=== PATIENT | male | born 1950 | race Caucasian/White ===

== ENCOUNTER 2019-02-02 11:46 | Inpatient (IN) | payer MEDICARE ==
[~2019-02-02 11:46] MED LIST: ISOVUE-370 76%-LOCM 1 ML ONE
[2019-02-02 12:38] LABS: #Eosinphils 0.4 thou/uL (0.0-0.7); #Lymphocytes 2.5 thou/uL (1.20-3.40); #Monocytes 1.4 thou/uL (0.11-0.59); #Neutrophils 8.3 thou/uL (1.40-6.50); %Basophils 0.3 % (0.0-1.0); %Lymphocytes 19.7 % (21.0-51.0); %Monocytes 11.2 % (0.0-10.0); %Neutrophils 65.8 % (42.0-75.0); Hemoglobin 17.8 g/dL (14.0-18.0); Mean Corpuscular HGB CONC 35.4 g/dL (32.0-36.0); Mean Corpuscular Hemoglobin 35.4 pg (27.0-31.0); Mean Platelet Volume 6.4 fL (7.4-10.4); Platelet Count 328 thou/uL (130-400); RBC Distribution Width 11.7 % (11.5-14.5); Red Blood Cell (RBC) Count 5.03 mill/uL (4.70-6.10); White Blood Cell (WBC) Count 12.6 thou/uL (4.8-10.8)
--- NOTE | 2019-02-02 12:44 | RAD ---
Chest one view HISTORY: Dyspnea. COMPARISON: 12/07/2008. FINDINGS: Cardiac silhouette is magnified by projection. Pulmonary vasculature is upper limits of nor mal. Lungs remain hyperinflated, left greater than right, with mild linear atelectasis at the lung bases. No evidence of pneumothorax or lobar consolidation. desk monitor leads overlie the chest. IMPRESSION: Chronic pulmonary hyperinflation. No active cardiopulmonary abnormalities are demonstrate d.
[2019-02-02 13:01] LABS: ALT (SGPT) 26 U/L (8-55); AST (SGOT) 26 U/L (5-34); Albumin 4.4 g/dL (3.4-4.8); Alkaline Phosphatase 67 U/L (40-150); Anion Gap 17 mmol/L (10-20); BUN (Urea Nitrogen) 31 mg/dL (8.4-25.7); Bilirubin, Total 0.7 mg/dL (0.2-1.2); Calc. Creatinine Clearance 0 mL/min (70-130); Calcium 10.1 mg/dL (7.8-10.44); Carbon Dioxide 28 mmol/L (23-31); Chloride 101 mmol/L (98-107); Estimated GFR-MDRD 69; Globulin 2.7 g/dL (2.4-3.5); Glucose 107 mg/dL (80-115); Potassium 4.1 mmol/L (3.5-5.1); Protein, Total 7.1 g/dL (5.8-8.1); Sodium 142 mmol/L (136-145)
[2019-02-02] MEDS ORDERED: Mag-Al 1200 mg/1200 mg/30 ML UDCUP ONE (13:36)
[2019-02-02] MEDS ORDERED: Lidocaine Viscous Sol 2% 15 ml UD Cup ONE (13:36)
--- NOTE | 2019-02-02 14:27 | CT ---
CT PULMONARY ANGIOGRAM WITH IV CONTRAST AND 3D MIP RECONSTRUCTIONS: DATE: 02/02/2019. PROVIDED CLINICAL HISTORY: Shortness of breath. FINDINGS: Vascular calcification including coronary calcium was demonstrated. The davis, pericardium, and great vessels demonstrate an otherwise unremarkable CT appearance. There is no evidence for central or se gmental pulmonary embolus. There is partial opacification of the distal bronchus intermedius and basilar segments of the right l ower lobe and both proximal right middle lobe segmental bronchi. There is no parenchymal opacity pre sent distal to these areas of opacification. There is associated bronchial wall thickening. There is a solitary peripheral subpleural focus of consolidation involving the superior segment of th e left lower lobe. There is no pleural fluid or pneumothorax apparent. The visualized portions of the upper abdomen demonstrate no acute abnormality. Partially visualized left adrenal mass appears stable with respect to 11/21/2005 and presumably reflects adenoma. There is no evidence for thoracic lymph node enlargement. The osseous structures demonstrate no concerning l ytic or blastic lesions. IMPRESSION: 1. No evidence for central or segmental pulmonary embolus. 2. Opacification of the bronchus intermedius and segmental bronchi of the proximal right middle lobe and basilar right lower lobe. Findings may reflect aspiration. Other etiologies are not excluded. 3. Subpleural consolidation involving the superior segment of the left lower lobe which may reflect pneumonia. Other etiologies are not excluded. Followup is recommended. 4. Vascular calcification including coronary calcium. POS: [facility]
[2019-02-02] MEDS ORDERED: cefTRIAXone\\ROCEPHIN 2 GM VIAL ONE (15:16)
[2019-02-02] MEDS ORDERED: Azithromycin 500 MG VIAL ONE (15:54)
[2019-02-02] MEDS ORDERED: Acetaminophen 325 MG TAB PO PRN (18:27)
[2019-02-02] MEDS ORDERED: Prevnar 13-Val Conj/PF 0.5 ML SYRINGE IM ONE (18:30)
[2019-02-02] MEDS: Pantoprazole 40 MG VIAL IVP SCH (20:27)
[2019-02-02] MEDS: Piperacillin/Tazobactam 3.375 GM in Sodium Chloride 0.9% 100 ML IVPB SCH (20:29)
[2019-02-02] MEDS ORDERED: Fleet Enema 133 ML BOT PR SCH (21:30)
[2019-02-02] MEDS ORDERED: Lidocaine 2% Viscous Solution 10 ML, Aluminum & Magnesium Hydroxide 30 ML SSW SCH (23:30)
[2019-02-02] MEDS ORDERED: Ondansetron PF 4 MG/2 ML Vial IVP PRN (23:55)
--- NOTE | 2019-02-03 01:46 | HP ---
CHIEF COMPLAINT: Multiple. HISTORY OF PRESENT ILLNESS: The patient is a 68-year-old male, who ultimately presented to the emergency department with shortness of breath, cough, difficulty swallowing. The patient reports that for months, he has had dyspnea on exertion. It has progressed to the point that he can even get dressed without becoming very short of breath. He has a cough that is productive of various types of sputum. States when he is coughing a lot, it is typically brown. The patient also reports pain with swallowing and difficulty swallowing. Says when he tries to take a bite, he feels like it would not go down, he ends up coughing half of it back out. He has had pain with swallowing coffee or tea or soft drinks, alcohol, has become very difficult for him to swallow even drinks that are cold or hot. He typically is only trying to stick with lukewarm liquids, but even water hurts him a little bit and states that his throat has been painful for 2 months. Then he thought it was just initially a typical sore throat, but it just not improved. He also has some alterations of his voice, where it becomes hoarse and scratchy over that same period of time. Occasionally, he can cough up a little bit of phlegm and his voice will improve a bit briefly and then returns to where it is most of the time. The patient does admit to having severe reflux symptoms all the time with burning up into his chest. He reports black stools, although he has not had a bowel movement for the last 3 days to speak of. Does not believe it is tarry or sticky in texture. He did use some prune juice about 3 days ago and that worked reasonably well for him. REVIEW OF SYSTEMS: The patient does have some cramping in his legs at night. He is voiding adequately. He has had no unintentional weight loss. All other systems reviewed and all pertinent positives and negatives noted in the history of present illness. PAST MEDICAL HISTORY: None. PAST SURGICAL HISTORY: Tonsillectomy, appendectomy. FAMILY HISTORY: Father in an MVA. His mother at the age of 85. He had a brother who with diabetes complications. SOCIAL HISTORY: The patient smokes a pack of cigarettes per day. He typically drinks about 8 beers per day, but recently has had to discontinue because the alcohol lemus his throat too much. Denies drugs. He was briefly once. He is . He has no kids. The only family he has around are cousins. CURRENT MEDICATIONS: The patient takes a large amount of ibuprofen on a daily basis. He takes no prescription medications. ALLERGIES: NONE. PHYSICAL EXAMINATION: VITAL SIGNS: Temperature is 98, pulse 65, respirations 22, O2 saturation 95% on room air, BP is 134/76. GENERAL APPEARANCE: Age-appropriate male, in no distress. Very pleasant, and cooperative. HEENT: The patient's sclerae are extremely erythematous. He has no obvious oropharyngeal lesions. He is edentulous. He has no significant sinus tenderness. He has a very slight amount of frothy clear posterior pharyngeal secretions which possibly could be drainage. He has no palpable masses in the jaw, mouth, or neck. The patient has a very tender actinic keratosis on the upper left ear without significant inflammatory changes and no ulceration. NECK: Supple and symmetric. No masses palpable. LUNGS: Diminished and some scattered rales throughout all lung justice. HEART: Regular rate and rhythm without murmurs, gallops, or rubs. ABDOMEN: Soft, nontender, and nondistended. Positive bowel sounds. No masses. No organomegaly. EXTREMITIES: There is no cyanosis, clubbing, or edema. He has chronic dermatitis changes of the lower 2/3 in the calf and feet, has diminished pulses. He has no hair growth in that area and it is very slightly cool to touch, but he has normal capillary refill. NEUROLOGIC: The patient appears to be fully intact, no focal deficits. PSYCH: The patient is extremely pleasant, has normal affect and behavior. LABORATORY DATA: White count 12.6, hemoglobin 17.8, platelets 328. Sodium is 142, potassium 4.1, chloride 101, CO2 is 28, BUN 31, creatinine is 1.07, glucose 107. Lactic acid is 1. AST is 26, ALT 26, alkaline phosphatase 67. Troponin is less than 0.01. BNP is 59.4, albumin is 4.4. Chest x-ray shows chronic pulmonary hyperinflation. CTA of the chest shows no evidence of central or segmental pulmonary emboli. There is opacification of the bronchus intermedius and segmental bronchi on the proximal right middle lobe and basilar right lower lobe, which could potentially reflect aspiration, other etiologies are not excluded. Subpleural consolidation involving the superior segment of the left lower lobe which may reflect pneumonia and there are vascular calcifications in the coronary arteries. By my review, there appears to be some significant blebs present at the superior lungs bilaterally. IMPRESSION AND PLAN: 1. Possible pneumonia. CT scan actually looks relatively unimpressive as far as the infiltrate goes. However, the patient does have risk for aspiration. He does have a white count. We will go ahead and cover him for potential aspiration pneumonitis with Zosyn. 2. Chronic obstructive pulmonary disease. Give some DuoNeb and supplemental oxygen as needed. The patient likely needs more aggressive intervention, which can be started once we get a little bit more information gathered on him, likely need some long-acting inhaled medications. We will consult Pulmonary. 3. Possible aspiration including segments of the bronchus intermedius. Could potentially be some additional plugging. Again, we will get the pulmonary input. 4. Dysphagia. The patient has odynophagia and dysphagia with difficulty getting things to go down. He seems to be worse with the meats and breads. We will ask Speech Therapy to see him. Given his smoking and drinking history, we will get a CT of the soft tissues of the neck. Certainly could have some type of tumor, could have significant reflux, inflammatory changes, could have some vocal cord polyps as a result of that and any number of other potentials will need a swallowing study once he has been seen by Speech Therapy and could potentially even need ENT evaluation at some point. 5. Odynophagia. Again, likely inflammatory changes which could be related to reflux versus more sinister etiology. 6. Reflux. We will start PPI. 7. The patient appears to have some degree of peripheral vascular disease, which may need to be evaluated at some point. He is not functional enough to have significant claudication symptoms at present. 8. Coronary artery disease as seen on the CT scan. Again, may need evaluation once his other issues are more fully elucidated. 9. Tobacco abuse. The patient was counseled regarding cessation. 10. Alcohol abuse. Again, the patient was counseled. 11. Actinic keratosis of the left auricle, may be some basal cell carcinoma, although it appears to be more just actinic keratosis something that can be addressed as an outpatient. Job ID: [id number]
[2019-02-03] MEDS: Piperacillin/Tazobactam 3.375 GM in Sodium Chloride 0.9% 100 ML IVPB SCH ×4 (02:34→20:05)
[2019-02-03 05:43] LABS: #Eosinphils 0.2 thou/uL (0.0-0.7); #Lymphocytes 2.3 thou/uL (1.20-3.40); #Monocytes 1.4 thou/uL (0.11-0.59); #Neutrophils 8.9 thou/uL (1.40-6.50); %Basophils 0.3 % (0.0-1.0); %Eosinophils 1.5 % (0.0-10.0); %Lymphocytes 17.7 % (21.0-51.0); %Monocytes 11.1 % (0.0-10.0); %Neutrophils 69.4 % (42.0-75.0); Mean Corpuscular HGB CONC 33.8 g/dL (32.0-36.0); Mean Corpuscular Hemoglobin 34.5 pg (27.0-31.0); Mean Platelet Volume 6.3 fL (7.4-10.4); Platelet Count 291 thou/uL (130-400); RBC Distribution Width 11.6 % (11.5-14.5); Red Blood Cell (RBC) Count 4.63 mill/uL (4.70-6.10); White Blood Cell (WBC) Count 12.8 thou/uL (4.8-10.8)
[2019-02-03 06:10] LABS: Anion Gap 16 mmol/L (10-20); BUN (Urea Nitrogen) 29 mg/dL (8.4-25.7); Calc. Creatinine Clearance 89 mL/min (70-130); Calcium 9.5 mg/dL (7.8-10.44); Carbon Dioxide 31 mmol/L (23-31); Chloride 101 mmol/L (98-107); Cholesterol 164 mg/dl (< 200 Desired); Estimated GFR-MDRD 62; Glucose 119 mg/dL (80-115); HDL Cholesterol 33 mg/dL (>60 Neg Risk); LDL Cholesterol, Calculated 115 mg/dL; Potassium 3.6 mmol/L (3.5-5.1); Sodium 144 mmol/L (136-145); Triglycerides 79 mg/dL (Less than 150)
--- NOTE | 2019-02-03 06:59 | RAD ---
KUB: Date: 02/02/19 INDICATION: History of epigastric abdominal pain, nausea, and vomiting. FINDINGS: Bowel gas pattern is nonspecific, but without overt evidence of obstruction. There is a mild amount o f retained stool within the colon. There is opacification of bladder related to renal excretion of pr ior IV contrast administration. No acute osseous abnormality is evident. IMPRESSION: No acute abnormality. POS: [facility]
[2019-02-03] MEDS ORDERED: Enoxaparin Sodium 40 MG/0.4 ML SYRINGE SC SCH (09:00)
[2019-02-03] MEDS: Pantoprazole 40 MG VIAL IVP SCH ×2 (09:24→20:08)
[2019-02-03] MEDS: Senokot S 8.6-50 MG TAB PO SCH ×2 (09:25→20:03)
[2019-02-03] MEDS ORDERED: Labetalol HCl 100 MG/20 ML VIAL ONE (10:05)
[2019-02-03] MEDS ORDERED: Vecuronium 10 MG VIAL ONE (10:05)
[2019-02-03] MEDS ORDERED: EPINEPHrine 1 MG/10 ML Abboject SYRINGE ONE ×3 (10:05→18:00)
[2019-02-03] MEDS ORDERED: ePHEDrine 50 MG/ML VIAL ONE (10:05)
[2019-02-03] MEDS ORDERED: Calcium Chloride 1 GM/10 ML Abboject SYRINGE ONE ×2 (10:05→17:50)
[2019-02-03] MEDS ORDERED: Rocuronium Bromide 10 MG/ML (10ML VIAL) ONE (10:05)
[2019-02-03] MEDS ORDERED: Dexamethasone 20 MG/5 ML VIAL ONE ×2 (10:05→14:58)
[2019-02-03] MEDS ORDERED: PHENYLEPHRINE-NS 100 MCG/ML 10 ML SYRINGE ONE (10:05)
--- NOTE | 2019-02-03 12:39 | PDOC.PN ---
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 -: -ea for a few seconds which got resolved with out intervention - Objective Resuscitation Status - Order Detail: 02/02/19 18:26 Resuscitation Status Routine Resuscitation Status: FULL: Full Resuscitation MAR Reviewed: Yes Vital Signs & Weight: Vital Signs (12 hours) Temp Pulse Pulse Resp Resp BP BP 02/03/19 11:46 97.9 F 55 L 22 H 84/56 L 02/03/19 11:42 59 L 18 02/03/19 08:10 89 28 H 87/61 L 02/03/19 07:37 98.1 F 63 22 H 103/68 02/03/19 05:41 65 18 02/03/19 04:00 98.4 F 64 20 123/70 02/03/19 01:51 63 18 Pulse Ox Pulse Ox 02/03/19 11:46 100 02/03/19 11:42 100 02/03/19 08:10 97 02/03/19 07:37 97 02/03/19 05:41 98 02/03/19 04:00 97 02/03/19 01:51 98 Weight Weight 225 lb 4.8 oz I&O: 02/02/19 02/03/19 02/04/19 06:59 06:59 06:59 Intake Total 1000 Output Total 180 Balance 820 Result Diagrams: 02/03/19 05:26 02/03/19 05:26 Phys Exam - Physical Examination HEENT: PERRLA, sclera anicteric Neck: no JVD, supple Respiratory: no wheezing, no rales rhonchi+ Cardiovascular: RRR, no significant murmur Gastrointestinal: soft, non-tender, positive bowel sounds Musculoskeletal: no edema, pulses present Neurological: non-focal, moves all 4 limbs Psychiatric: normal affect, A&O x 3 Dx/Plan (1) Hoarseness of voice Status: Acute (2) PNA (pneumonia) Code(s): J18.9 - PNEUMONIA, UNSPECIFIED ORGANISM Status: Acute Qualifiers: Pneumonia type: aspiration pneumonia Laterality: right Lung location: middle lobe of lung (3) Tobacco abuse Code(s): Z72.0 - TOBACCO USE Status: Chronic Comment: cigars (4) Hypotension Status: Acute Qualifiers: Hypotension type: hypotension due to hypovolemia Qualified Code(s): I95.89 - Other hypotension; E86.1 - Hypovolemia (5) Dehydration, moderate Code(s): E86.0 - DEHYDRATION Status: Acute (6) COPD (chronic obstructive pulmonary disease) Status: Suspected Qualifiers: COPD type: chronic bronchitis (7) Alcohol abuse Code(s): F10.10 - ALCOHOL ABUSE, UNCOMPLICATED Status: Chronic - Plan 1 liter NS bolus, then continue on D5w @100mls/hr -: has taken him to OR for suspected mass/poss trach? -: continue zosyn for now, await cultures, protonix, nebs -: d/w -: likely will go to imcu/ccu based on recovery from surgery, will f/u * . Review of Systems - Medications/Allergies Allergies/Adverse Reactions: Allergies Allergy/AdvReac Type Severity Reaction Status Date / Time No Known Allergies Allergy Verified 02/02/19 18:05 Medications: Current Medications Acetaminophen (Tylenol) 650 mg PO Q4H PRN PRN Reason: Headache/Fever/Mild Pain (1-3) Last Admin: 02/03/19 05:48 Dose: 650 mg Albuterol/Ipratropium (Duoneb) 3 ml NEB [id number] Last Admin: 02/03/19 11:42 Dose: 3 ml Albuterol/Ipratropium (Duoneb) 3 ml NEB Q4H PRN PRN Reason: SOB &/or Wheezing Enoxaparin Sodium (Lovenox) 40 mg SC 0900 [facility] Last Admin: 02/03/19 09:24 Dose: Not Given Piperacillin Sod/Tazobactam (Sod 3.375 gm/ Sodium Chloride) 100 mls @ 200 mls/ hr IVPB 0300,0900,1500,2100 [facility] Last Admin: 02/03/19 09:23 Dose: 100 mls Ondansetron HCl (Zofran) 4 mg IVP Q6H PRN PRN Reason: Nausea/Vomiting Last Admin: 02/03/19 00:28 Dose: 4 mg Pantoprazole Sodium (Protonix) 40 mg IVP Q12HR [facility] Last Admin: 02/03/19 09:24 Dose: 40 mg Senna/Docusate Sodium (Senokot S) 1 tab PO BID YUN Last Admin: 02/03/19 09:25 Dose: Not Given Sodium Chloride (Normal Saline Pf) 10 ml FS PRN PRN PRN Reason: RECONSTITUTION
[2019-02-03] MEDS ORDERED: Lidocaine 1% w/Epinephrine 1:100K 20 ML VIAL ONE (13:06)
[2019-02-03] MEDS ORDERED: EPINEPHrine 1 MG/ML AMP ONE (13:06)
[2019-02-03] MEDS ORDERED: Ketamine 50 MG/ML (10ML VIAL) ONE (13:11)
[2019-02-03] MEDS ORDERED: Midazolam HCl 2 mg/2 ml Vial ONE (13:11)
[2019-02-03] MEDS ORDERED: Fentanyl 100 MCG/2 ML VIAL ONE (13:12)
[2019-02-03] MEDS ORDERED: Albumin 5% 500 ML ONE (13:52)
[2019-02-03] MEDS ORDERED: Norepinephrine 4 MG/4 ML VIAL ONE (14:23)
[2019-02-03] MEDS ORDERED: Sodium Bicarbonate 2.5 MEQ/5 ML VIAL ONE (14:45)
[2019-02-03] MEDS ORDERED: Sodium Bicarb 50 MEQ/50 ML VIAL ONE ×3 (14:45→14:59)
[2019-02-03] MEDS ORDERED: Rocuronium Bromide 50 MG/5 ML VIAL ONE (15:05)
[2019-02-03 15:08] LABS: Hemoglobin 8.3 g/dL (14.0-18.0)
[2019-02-03 15:12] LABS: PTT 24.2 SEC (22.9-36.1)
[2019-02-03 15:13] LABS: INR-International Normal Ratio 1.4; Prothrombin Time 17.3 SEC (12.0-14.7)
[2019-02-03 15:17] LABS: Base Excess (BEa) 7.8 mEq/L (-2.0 to +3.0); Calcium, Ionized 0.89 mmol/L (1.12-1.30); Carboxyhemoglobin (COHb) 2.2 gm% (0.0-3.0); Hemoglobin (Hb) 6.7 g/dL (14.0-18.0); O2 Tension (PaO2) 219.2 mmHg (> 80.0); Potassium - ABG Lab 3.54 mmol/L (3.70-5.30)
[2019-02-03 15:21] LABS: pH, Arterial 7.25 (7.35-7.45)
--- NOTE | 2019-02-03 15:25 | CON ---
DATE OF CONSULTATION: 02/03/2019 TIME SPENT: The following encompassed 70 minutes time, of that time, greater 50% was spent with the patient and/or the patient's unit in the hospital. REASON FOR CONSULTATION: Difficulty breathing. HISTORY OF PRESENT ILLNESS: This is a 68-year-old male, who was brought into the hospital yesterday with a 2-month history of odynophagia, dysphagia, and some shortness of breath. He says it is difficult to swallow both solids and liquids. It feels like gets stuck in the back of his throat. When that happens, he has difficult time breathing. He has lost his voice over the last 2 weeks. PAST MEDICAL HISTORY: None, but he does not see doctors. PAST SURGICAL HISTORY: Tonsillectomy and appendectomy. FAMILY MEDICAL HISTORY: Remarkable for diabetes mellitus. SOCIAL HISTORY: He smokes about a pack of cigars per day. He drinks 8 beers per day, but quit 2 weeks ago because it became too difficult to swallow. He does not use illicit drugs. MEDICATIONS: Prior to admission, ibuprofen. ALLERGIES: NONE. REVIEW OF SYSTEMS: Otherwise unremarkable except for that listed above. PHYSICAL EXAMINATION: VITAL SIGNS: Temperature 98.1, pulse 63, respirations 22, O2 saturation 97%, blood pressure 103/68. GENERAL: He is awake, alert. He just fell, so he has some excoriations over his toes and his arms. HEENT: Pupils reactive. Sclerae anicteric. Oropharynx, large tongue. NECK: Shotty adenopathy. Occasional stridorous air noise. LUNGS: Clear peripherally without wheezing. CARDIAC: S1, S2. Regular. ABDOMEN: Obese, soft, nontender. SKIN: [place] upper part of his chest. EXTREMITIES: No clubbing, cyanosis, or edema. LABORATORY DATA: White count 12.8, hematocrit 47.2, platelet count 291. Sodium 144, potassium 3.6, BUN 29, creatinine 1.2, glucose 119. CT of the chest demonstrates no evidence of PE, questionable opacification of the bronchus intermedius, suspicious for aspiration. ASSESSMENT: 1. Main issue is odynophagia and dysphagia with voice loss. Given his history of alcohol and tobacco consumption, head and neck cancer needs to be ruled out. 2. Probable some degree of underlying chronic obstructive pulmonary disease. 3. Questionable aspiration pneumonia. PLAN: 1. I agree with continue antibiotics. 2. Patient needs ENT evaluation for triple endoscopy. 3. Further disposition to follow. Job ID: [id number]
[2019-02-03 16:11] LABS: Anion Gap 17 mmol/L (10-20); BUN (Urea Nitrogen) 44 mg/dL (8.4-25.7); Calc. Creatinine Clearance 63 mL/min (70-130); Calcium 7.2 mg/dL (7.8-10.44); Carbon Dioxide 21 mmol/L (23-31); Chloride 109 mmol/L (98-107); Estimated GFR-MDRD 42; Glucose 271 mg/dL (80-115); Potassium 4.7 mmol/L (3.5-5.1); Sodium 142 mmol/L (136-145)
[2019-02-03] MEDS ORDERED: Insulin Regular 300 UNITS/3 ML VIAL ONE (16:14)
[2019-02-03] MEDS ORDERED: Ventilator Sedation Protocol 1 EACH FS ONE (16:39)
[2019-02-03] MEDS ORDERED: CCU Electrolyte Replacement 1 EACH FS ONE (16:39)
[2019-02-03] MEDS ORDERED: Fentanyl BOLUS 250 ML IVPB PRN (16:46)
[2019-02-03] MEDS ORDERED: DISCONTINUE PREVIOUS NARCOTIC PAIN MEDICATIONS AND BENZODIAZEPINES FS SCH (16:46)
[2019-02-03] MEDS ORDERED: Propofol BOLUS 1,000 MG/100 ML VIAL IV PRN (16:46)
[2019-02-03] MEDS ORDERED: CCU ELECTROLYTE REPLACEMENT PROTOCOL FS PRN (16:47)
[2019-02-03] MEDS ORDERED: Magnesium 2 GM/50 ML 2 GM in Premix Bag 1 BAG IVPB PRN (16:47)
[2019-02-03] MEDS ORDERED: Potassium Phosphate 15 MMOL in Sodium Chloride 0.9% 250 ML 250 ML IV PRN (16:47)
[2019-02-03] MEDS ORDERED: Potassium Phosphate 12 MMOL in Sodium Chloride 0.9% 250 ML 250 ML IV PRN (16:47)
[2019-02-03] MEDS ORDERED: Potassium Chloride 40 MEQ in Premix Bag 1 BAG IVPB PRN (16:47)
[2019-02-03] MEDS ORDERED: Potassium Phosphate 9 MMOL in Sodium Chloride 0.9% 100 ML IVPB PRN (16:47)
[2019-02-03] MEDS ORDERED: Potassium Chloride 40 MEQ in Sodium Chloride 0.9% 250 ML 250 ML IVPB PRN (16:47)
[2019-02-03] MEDS ORDERED: Magnesium Oxide 400 MG TAB PO PRN ×2 (16:47)
[2019-02-03] MEDS ORDERED: Potassium Chloride 20 MEQ TAB PO PRN (16:47)
[2019-02-03] MEDS ORDERED: PHOS-NAK 1 PKT PACK PO PRN ×2 (16:47)
[2019-02-03] MEDS ORDERED: Phenylephrine HCL 10 MG/ML VIAL ONE (17:16)
[2019-02-03 18:01] LABS: Hemoglobin 8.4 g/dL (14.0-18.0); Mean Corpuscular HGB CONC 33.7 g/dL (32.0-36.0); Mean Corpuscular Hemoglobin 31.4 pg (27.0-31.0); Mean Corpuscular Volume 93.3 fL (78.0-98.0); RBC Distribution Width 13.8 % (11.5-14.5); Red Blood Cell (RBC) Count 2.69 mill/uL (4.70-6.10); White Blood Cell (WBC) Count 10.5 thou/uL (4.8-10.8)
[2019-02-03 18:25] LABS: #Eosinphils 0.1 thou/uL (0.0-0.7); #Lymphocytes 0.9 thou/uL (1.20-3.40); #Monocytes 1.2 thou/uL (0.11-0.59); #Neutrophils 8.4 thou/uL (1.40-6.50); %Eosinophils 0.7 % (0.0-10.0); %Lymphocytes 8.9 % (21.0-51.0); %Monocytes 11.1 % (0.0-10.0); %Neutrophils 79.3 % (42.0-75.0); Anisocytosis SLIGHT = 6-15 cells (100X) (0-5/hpf); MDiff Complete? YES; Mean Platelet Volume 6.3 fL (7.4-10.4); Platelet Count 86 thou/uL (130-400); Platelet Morphology Comment Appears Decreased
[2019-02-03] MEDS: Propofol 1,000 MG/100 ML VIAL IV PRN (19:31)
[2019-02-03] MEDS: Sodium Chloride 0.9% 1,000 ML IV SCH (19:31)
[2019-02-03] MEDS: fentaNYL Citrate/PF 2,000 MCG in Sodium Chloride 0.9% 60 ML IV SCH (19:32)
[2019-02-03 19:37] LABS: Actual Bicarbonate (HCO3a) 30.6 mEq/L (22-28); Base Excess (BEa) 4.4 mEq/L (-2.0 to +3.0); CO2 Tension 53.8 mmHg (35.0-45.0); Calcium, Ionized 1.12 mmol/L (1.12-1.30); Hemoglobin (Hb) 10.7 g/dL (14.0-18.0); O2 Tension (PaO2) 101.4 mmHg (> 80.0); pH, Arterial 7.37 (7.35-7.45)
[2019-02-03 19:38] LABS: Puncture Site ALINE
[2019-02-03] MEDS: Lorazepam 2 MG/ML VIAL SLOW IVP PRN (20:54)
[2019-02-03 21:00] LABS: Hemoglobin 10.6 g/dL (14.0-18.0); Mean Corpuscular HGB CONC 33.6 g/dL (32.0-36.0); Mean Corpuscular Hemoglobin 31.3 pg (27.0-31.0); Mean Platelet Volume 6.9 fL (7.4-10.4); Platelet Count 145 thou/uL (130-400); RBC Distribution Width 13.9 % (11.5-14.5); Red Blood Cell (RBC) Count 3.38 mill/uL (4.70-6.10)
--- NOTE | 2019-02-03 23:38 | OP ---
DATE OF PROCEDURE: 02/03/2019 PROCEDURE PERFORMED: EGD with injection therapy for control of bleeding and hemoclip placement for control of bleeding. [id number] DIAGNOSES: 1. Massive upper gastrointestinal hemorrhage. 2. Blood loss anemia. 3. Head and neck cancer. POSTPROCEDURE DIAGNOSES: 1. Exam to distal stomach. 2. Active gastrointestinal hemorrhage with fresh clot pooling in multiple areas of the stomach including fundus, body, and antrum, cleared with large bore lavage. 3. Dieulafoy lesion in the proximal body of the stomach, injected with epinephrine solution (1:10,000 dilution) and 2 hemoclips for control of hemorrhage. 4. Recurrent hemorrhage during the upper endoscopy occurring primarily in the fundus and unable to find the source of bleeding due to large clots. PROCEDURE IN DETAIL: Upper endoscopy was performed under emergency conditions at the request of Drs. Sergey Escobar and David Bailey. Shortly after placement of a tracheostomy, the patient was noted with active upper GI hemorrhage requiring multiple units of packed red blood cells and plasma for resuscitation. ANESTHESIA: General anesthesia was administered by Dr. Kearns and Jorge. DESCRIPTION OF PROCEDURE: A bite block was placed into the patient's mouth. The procedure was done in the supine position. A Pentax video therapeutic gastroscope was introduced into the oral cavity and the esophagus was carefully intubated following the path of the nasogastric tube, which was subsequently removed. Evaluation of the esophagus revealed small amounts of fresh blood refluxing up into the esophagus, but no obvious esophageal varices or ulcer. Entry into the stomach revealed a large amount of fresh blood and blood clots, both fresh and organized , pooling in multiple areas of the stomach including the fundus, the body, and the gastric antrum. At that point, it was decided to use a large bore tube with sterile water to lavage the stomach before examining further. Lavage of the stomach was carried out with sterile water until it was apparent that much of the clot and blood were successfully removed through rinsing and suctioning. The endoscope was reintroduced and examination of the stomach revealed 2 large deep ulcers in the gastric antrum. The more superior antral ulcer was approximately 3 cm in diameter and demonstrated a relatively clean base with two brown spots. No visible vessel was identified. The second more inferior ulcer was of similar size, but contained vegetable matter and some organized older clot that was difficult to clear. The pyloric channel could not be clearly identified. No active hemorrhage was seen from either of these 2 ulcers. After the lavage, much of the clot in the body of the stomach was removed and the gastric body mucosa demonstrated no obvious ulcer or active bleeding. In the proximal stomach, a Dieulafoy type lesion was identified in the upper gastric body. Using a sclerotherapy needle, epinephrine solution (1:10,000 dilution) was injected circumferentially around the protruding vessel. Good blanching of the surrounding mucosa was achieved. Subsequently, 2 hemoclips were placed on the vessel with no evidence oozing or hemorrhage post treatment. It was then apparent that more oozing and bleeding began occurring in the fundus and cardia area of the stomach. Again using suctioning and lavage, the cardia was visualized and demonstrated no varices or tear. There was no active bleeding from the actual cardia. The majority of the fresh blood and clot was seen pooling at the top of the stomach in the fundus area. Despite using additional lavage and suctioning, this area could not be cleared nor could the underlying mucosa be properly examined. An emergency surgery consultation was obtained with Dr. Gill who observed the endoscopic findings. Based on the continued active hemorrhage and the inability to pinpoint the source of the active hemorrhage, it was decided that urgent laparotomy would be performed to control the hemorrhage. This was based on agreement by 4 physicians including myself, Dr. Kinney, Dr. Gill, and Dr. Bailey. The stomach was decompressed as the endoscope was removed from the patient. Preparation was then made for emergency laparotomy. RECOMMENDATIONS: 1. Surgery as per Dr. Gill. 2. Continue supportive care and monitoring of serial hemoglobins and platelet counts. 3. Dr. Griffin from Gastroenterology Service will continue to follow along with rest of the medical and surgical team. Job ID: [id number] [facility]
[2019-02-03] MEDS ORDERED: Norepinephrine 8 MG/0.9% NS 250 ML ONE (23:57)
[2019-02-04] MEDS: Norepinephrine 8 MG/250 ML BAG IVPB PRN ×2 (00:07→11:50)
[2019-02-04 01:24] LABS: Mean Corpuscular Hemoglobin 31.4 pg (27.0-31.0); Mean Corpuscular Volume 92.3 fL (78.0-98.0); Mean Platelet Volume 7.4 fL (7.4-10.4); Platelet Count 170 thou/uL (130-400); White Blood Cell (WBC) Count 14.5 thou/uL (4.8-10.8)
--- NOTE | 2019-02-04 01:28 | OP ---
DATE OF PROCEDURE: 02/03/2019 PREOPERATIVE DIAGNOSES: Massive upper gastrointestinal bleed with hemodynamic shock with massive transfusion protocol already started in the procedure/operating room when I arrived. POSTOPERATIVE DIAGNOSES: 1. Arterial bleeding from duodenal ulcer to posterior. 2. Multiple bleeding, Dieulafoy lesions to fundus and body of stomach. ANESTHESIA: General. ESTIMATED BLOOD LOSS: Massive. COMPLICATIONS: None. DESCRIPTION OF PROCEDURE: The patient was urgently prepped and draped in the operating room. Midline incision was made and abdominal cavity was entered without injury. The stomach was opened and all clot evacuated. The upper stomach was packed using laps. There appeared to be some blood coming from the duodenal area through the pylorus. There were multiple Dieulafoy's lesions to the body and fundus of stomach. They were oversewn using silk suture. A longitudinal gastrotomy had been made on the greater curve of the stomach in order for visualization of this. The packs were left up in the fundus after there was no ongoing bleeding. Pyloroplasty and longitudinal incision were made from stomach into the duodenum then. There was arterial bleeding seen in the posterior duodenal ulcer. This was very difficult to control given its very posterior nature and heaped up margins and significant locally inflammatory changes locally. However, the bleeding ulcer was able to be oversewn using silk suture and the bleeding stopped. Gelfoam was left on top of this posterior ulcer. Surgicel was left on top of this ulcer for some oozing from its edges after the arterial bleeding was controlled. The packs were removed from the upper stomach. There was no ongoing bleeding. The stomach was closed using multiple loads of an [place] stapler. NG tube was brought in the stomach and left in the stomach. Given the patient's hemodynamic instability, decision was made to use the ABThera and not close him. The pyloroplasty was closed transversely using running PDS suture. A lap was left on top of this repair. The ABThera was placed in the typical fashion. The patient was sent to the ICU in critical condition. Job ID: [id number]
[2019-02-04] MEDS: Piperacillin/Tazobactam 3.375 GM in Sodium Chloride 0.9% 100 ML IVPB SCH ×4 (03:21→20:08)
[2019-02-04] MEDS: Sodium Chloride 0.9% 1,000 ML IV SCH (03:27)
[2019-02-04 05:05] LABS: #Basophils 0.1 thou/uL (0.0-0.2); #Lymphocytes 1.3 thou/uL (1.20-3.40); #Monocytes 1.5 thou/uL (0.11-0.59); #Neutrophils 12.5 thou/uL (1.40-6.50); %Basophils 0.8 % (0.0-1.0); %Eosinophils 0.1 % (0.0-10.0); %Lymphocytes 8.6 % (21.0-51.0); %Monocytes 9.6 % (0.0-10.0); %Neutrophils 80.9 % (42.0-75.0); Hemoglobin 9.7 g/dL (14.0-18.0); Mean Corpuscular HGB CONC 33.6 g/dL (32.0-36.0); Mean Corpuscular Hemoglobin 31.2 pg (27.0-31.0); Mean Platelet Volume 7.2 fL (7.4-10.4); Platelet Count 180 thou/uL (130-400); RBC Distribution Width 14.1 % (11.5-14.5); Red Blood Cell (RBC) Count 3.12 mill/uL (4.70-6.10); White Blood Cell (WBC) Count 15.4 thou/uL (4.8-10.8)
[2019-02-04] MEDS: fentaNYL Citrate/PF 2,000 MCG in Sodium Chloride 0.9% 60 ML IV SCH ×2 (05:30→18:51)
[2019-02-04 05:36] LABS: Anion Gap 11 mmol/L (10-20); BUN (Urea Nitrogen) 37 mg/dL (8.4-25.7); Calc. Creatinine Clearance 78 mL/min (70-130); Calcium 7.9 mg/dL (7.8-10.44); Carbon Dioxide 30 mmol/L (23-31); Chloride 113 mmol/L (98-107); Estimated GFR-MDRD 53; Glucose 142 mg/dL (80-115); Potassium 3.8 mmol/L (3.5-5.1); Sodium 150 mmol/L (136-145)
[2019-02-04 07:33] LABS: Actual Bicarbonate (HCO3a) 29.1 mEq/L (22-28); Base Excess (BEa) 3.7 mEq/L (-2.0 to +3.0); CO2 Tension 48.1 mmHg (35.0-45.0); Calcium, Ionized 1.07 mmol/L (1.12-1.30); Carboxyhemoglobin (COHb) 0.4 gm% (0.0-3.0); O2 Tension (PaO2) 88.9 mmHg (> 80.0); Potassium - ABG Lab 3.83 mmol/L (3.70-5.30)
[2019-02-04 07:35] LABS: Puncture Site ALINE
[2019-02-04 07:36] LABS: ALV-art Gradient 278.775 (0-20)
[2019-02-04] MEDS ORDERED: Calcium Gluconate 4.6 MEQ in Sodium Chloride 0.9% 100 ML IVPB SCH (07:39)
--- NOTE | 2019-02-04 08:13 | PRG ---
DATE OF SERVICE: 02/04/2019 TIME SPENT: 35 minutes critical care time. SUBJECTIVE: The patient remains in the ICU on mechanical ventilation. Surprisingly, he is fully awake, follows commands. He is trying to talk, but is having difficulty because of the tracheostomy. OBJECTIVE: HEENT: Unremarkable. NECK: Tracheostomy in midline position. LUNGS: Coarse breath sounds with wheezing bilaterally. CARDIOVASCULAR: S1 and S2. Regular without murmur, currently on a Levophed drip. ABDOMEN: Open wound VAC in place at midline. EXTREMITIES: No clubbing or cyanosis. He has generalized trace edema throughout. NEUROLOGICAL: Moves all 4 extremities. LABORATORY DATA: Sodium 150, potassium 3.8, chloride 113, CO2 of 30, BUN 37, creatinine 1.3, and glucose 142. The pH of 7.4, pCO2 of 48, pO2 of 89 on SIMV rate 20, tidal volume of 500, PEEP 5, pressure support 10, FiO2 of 60%. White blood cell count 15.4, hemoglobin 9.7, hematocrit 29.0, and platelet count 180. DIAGNOSTIC DATA: His chest x-ray is surprisingly clear. The central line, orogastric tube, and tracheostomy tube were noted. He has slight blunting of the right costophrenic angle. ASSESSMENT: 1. 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 Biopsy results pending. 2. Status post tracheostomy placement because of the tumor. 3. Peptic ulcer disease-gastric ulcers and duodenal ulcer, now status post laparotomy. 4. Acute respiratory failure requiring mechanical ventilation. 5. Status post hypovolemic shock from the gastrointestinal bleed requiring massive transfusion protocol. Now has stable H and H. 6. Diffuse wheezing consistent with chronic obstructive pulmonary disease. PLAN: 1. We will attempt to wean his Levophed today. 2. Switch to half-normal saline since he is becoming hyponatremic. 3. We would continue antibiotics perhaps for 5 total days. This was recently started because of presumed aspiration. I think it is reasonable to continue it now given the events of yesterday. 4. No plans to wean at this time, but I think if his blood pressure improves, he can probably wean to trach collar over the weekend. 5. Start methylprednisolone because of diffuse wheezing throughout. Increased frequency in nebulization treatments. 6. Continue thiamine because of history of alcohol intake. 7. DT precautions. Low threshold to put on scheduled lorazepam if he shows signs of withdrawal. 8. Further disposition per General Surgery. The patient may require abdominal closure at some point. Job ID: [id number]
--- NOTE | 2019-02-04 08:28 | PDOC.GSPN ---
Surgery Progress Note: Subj - Subjective Narrative: No events overnight. Awake this morning Surgery Progress Note: Obj - Vital signs Vital signs: Vital Signs - Most Recent Temp Pulse Resp BP Pulse Ox 98.2 F 81 29 H 113/64 97 02/04/19 07:00 02/04/19 07:22 02/04/19 08:00 02/04/19 07:22 02/04/19 07:42 - Physical Exam General: moderate distress (asking for ice chips) Abdomen: soft, appropriately tender (Abthera in place. His abdomen is distended ) Surgery Progress Note: Results - Labs Result Diagrams: 02/04/19 04:50 02/04/19 04:50 Lab results: Laboratory Results - last 24 hr 02/03/19 02/03/19 02/04/19 14:39 20:51 01:05 WBC 12.0 H 14.5 H RBC 3.38 L 3.20 L Hgb 10.6 L 10.0 L Hct 31.4 L 29.6 L MCV 93.0 92.3 MCH 31.3 H 31.4 H MCHC 33.6 34.0 RDW 13.9 14.0 Plt Count 145 170 MPV 6.9 L 7.4 Neutrophils % Lymphocytes % Monocytes % Eosinophils % Basophils % Neutrophils # Lymphocytes # Monocytes # Eosinophils # Basophils # Specimen Type Puncture Site Bicarbonate Actual ABG pH ABG pCO2 ABG pO2 ABG O2 Sat Calc/Amie ABG O2 Content ABG Base Excess ABG Hematocrit ABG Hemoglobin ABG Oxyhemoglobin ABG Carboxyhemoglobin ABG Methemoglobin ABG Deoxyhemoglobin Emmett Test A-a O2 Gradient Ionized Calcium Mode of Support Mechanical Rate Inspired O2 Tidal Volume Pressure Support PEEP or CPAP Sodium Potassium Chloride Carbon Dioxide Anion Gap BUN Creatinine Estimated GFR (MDRD) Glucose Calcium Blood Type A POSITIVE Antibody Screen NEGATIVE Crossmatch See Detail 02/04/19 02/04/19 02/04/19 04:50 04:50 07:20 WBC 15.4 H RBC 3.12 L Hgb 9.7 L Hct 29.0 L MCV 93.0 MCH 31.2 H MCHC 33.6 RDW 14.1 Plt Count 180 MPV 7.2 L Neutrophils % 80.9 H Lymphocytes % 8.6 L Monocytes % 9.6 Eosinophils % 0.1 Basophils % 0.8 Neutrophils # 12.5 H Lymphocytes # 1.3 Monocytes # 1.5 H Eosinophils # 0.0 Basophils # 0.1 Specimen Type ARTERIAL Puncture Site CYRIL Bicarbonate Actual 29.1 H ABG pH 7.40 ABG pCO2 48.1 H ABG pO2 88.9 H ABG O2 Sat Calc/Amie 96.4 ABG O2 Content 13.6 L ABG Base Excess 3.7 H ABG Hematocrit 29.0 L ABG Hemoglobin 10.0 L ABG Oxyhemoglobin 95.7 ABG Carboxyhemoglobin 0.4 ABG Methemoglobin 0.30 ABG Deoxyhemoglobin 3.6 H Emmett Test NOT DONE A-a O2 Gradient 278.775 H Ionized Calcium 1.07 L Mode of Support SIMV/PSV Mechanical Rate 20 Inspired O2 60 Tidal Volume 500 Pressure Support 10 PEEP or CPAP 5.0 Sodium 150 H 148 Potassium 3.8 3.83 Chloride 113 H 112 H Carbon Dioxide 30 Anion Gap 11 BUN 37 H Creatinine 1.35 H Estimated GFR (MDRD) 53 Glucose 142 H Calcium 7.9 Blood Type Antibody Screen Crossmatch Surgery Progress Note: A/P - Problem (1) Bleeding duodenal ulcer Current Visit: Yes Code(s): K26.4 - CHRONIC OR UNSPECIFIED DUODENAL ULCER WITH HEMORRHAGE Status: Acute - Plan Plan: POD 1 oversew -He is packed open with Abthera, will need washout with omental reinforcement and G or J tube -Seems to have stabilized hemodynamically -Dr. Gamez will be covering for me this weekend
[2019-02-04] MEDS: Sodium Chloride 0.45% 1,000 ML IV SCH ×2 (08:45→22:09)
[2019-02-04] MEDS: methylPREDNISolone Sod Succ 40 MG VIAL IVP SCH ×2 (08:46→20:08)
[2019-02-04] MEDS: Sodium Chloride 0.9% (PF) 10 ML VIAL FS PRN ×2 (08:46→20:08)
[2019-02-04] MEDS: Pantoprazole 40 MG VIAL IVP SCH ×2 (08:46→20:08)
[2019-02-04 09:22] LABS: Hemoglobin 9.3 g/dL (14.0-18.0); Mean Corpuscular Hemoglobin 32.2 pg (27.0-31.0); Mean Corpuscular Volume 91.9 fL (78.0-98.0); Mean Platelet Volume 7.3 fL (7.4-10.4); Platelet Count 173 thou/uL (130-400); RBC Distribution Width 14.2 % (11.5-14.5); Red Blood Cell (RBC) Count 2.89 mill/uL (4.70-6.10); White Blood Cell (WBC) Count 14.8 thou/uL (4.8-10.8)
--- NOTE | 2019-02-04 09:22 | RAD ---
CHEST 1 VIEW: HISTORY: Pneumonia. Followup. COMPARISON: 02/02/2019. FINDINGS: Cardiac silhouette is magnified by projection. Pulmonary vasculature more engorged. Ill-defined pat parvin infiltrate now projects over the left posterior base. Mediastinum is midline. Tracheostomy appl iance is now in place. Nasogastric tube descends to the abdomen. Right subclavian central venous ca theter in place with tip over the cavoatrial junction. No evidence of pneumothorax. IMPRESSION: 1. New left posterior basilar infiltrate, consistent with pneumonia. 2. Slight interval increase in pulmonary vascular congestion. 3. Lines and tubes, as detailed above, are in good radiographic position. POS: TPC
[2019-02-04] MEDS: Senokot S 8.6-50 MG TAB PO SCH ×2 (09:37→20:16)
[2019-02-04] MEDS: Vecuronium 10 MG VIAL IV PRN ×5 (10:33→23:04)
[2019-02-04] MEDS: Lorazepam 2 MG/ML VIAL SLOW IVP PRN ×3 (10:33→17:35)
--- NOTE | 2019-02-04 13:28 | PQF ---
BLANCO Pastrana, [place] JC MD [id number] [id number] CLINICAL DOCUMENTATION IMPROVEMENT CLARIFICATION FORM: ICD-10 Updated PLEASE DO AN ADDENDUM TO THE PROGRESS NOTE WITH ANY DOCUMENTATION UPDATES OR ADDITIONS AND CARRY THROUGH TO DC SUMMARY. THANK YOU. DATE: 02-04-19 ATTN: DR. FORMAN Please exercise your independent, professional judgment in responding to the clarification form. Clinical indicators are provided on the bottom of this form for your review Please check appropriate box(es): [ ] Sepsis due to Aspiration Pneumonia [ ] SIRS due to non-infectious process Active Bleeding Duodenal Ulcer [ ] with organ dysfunction [ ] without organ dysfunction [ ] Severe sepsis with acute organ dysfunction of ELIZABETH [ x ] Other diagnosis _aspiration pna, Has hemorrhagic shock due to GI bleed, No sepsis [ ] Unable to determine In addition, please specify: Present on Admission (POA): [ x] Yes [ ] No [ ] Unable to determine For continuity of documentation, please document condition throughout progress notes and discharge summary. Thank You. CLINICAL INDICATORS - SIGNS / SYMPTOMS / LABS ED: * LLL PNA; SEPSIS * BP - WNL * P 65-93 * RR 19-28 * T 99.4 ORAL * O2 SAT 92-97@ ON 2LNC - THEN 99% ON RA 02-02 (TSAS): POSSIBLE PNA - POSSIBLE ASPIRATION - DYSPHAGIA; 02-03 (BAGLEY): UPPER GI BLEED 02-03 (DELFINORENYael): ARTERIAL BLEEDING FROM DUODENAL ULCER LABS: BUN CREAT GFR sodium WBC 02-02 31 1.07 69 12.6 02-03 @ 0526 29 1.18 62 12.8 02-03 @ 1439 44 1.66 42 10.5 02-04 37 1.35 53 150 15.4 RISK FACTORS 02-02 (FICKLEN): * SOB/COUGH/DIFFICULTY SWALLOWING * ODYNOPHAGIA, DYSPHAGIA * POSSIBLE PNA - RISK OF ASPIRATION * REFLUX 02-04 (PRATIK): PYRIFORM SINUS MASS IMPINGING ON THE SUPRAGLOTTIC AREA CONSISTENT WITH CANCER TREATMENTS: PULMONARY CONSULT - 02-03 GI CONSULT - 02-03 SURGERY CONSULT - 02-03 ENT CONSULT - 02-03 (HERNANDEZ): LAPAROTOMY WITH CONTROL OF BLEEDING 02-04 (PRATIK): S/P TRACHEOSTOMY PLACEMENT BECAUSE OF TUMOR MAR: ZOSYN IV 02-02 TO 02-04 DUONEB - TO 02-04 IV NS 02-03/02-04 THANK YOU, CYNTHIA (This form is maintained as a part of the permanent medical record) 2015 [employer]. All Rights Reserved Cynthia Pelayo RN, BS [email or web address] Cell [facility]
--- NOTE | 2019-02-04 14:35 | PDOC.PN ---
- Subjective Encounter Start Date: 02/04/19 Encounter Start Time: 13:30 Subjective: awake, on vent, follows verbal stimuli -: asking for water - Objective Resuscitation Status - Order Detail: 02/02/19 18:26 Resuscitation Status Routine Resuscitation Status: FULL: Full Resuscitation MAR Reviewed: Yes Vital Signs & Weight: Vital Signs (12 hours) Temp Pulse Resp BP Pulse Ox 02/04/19 14:00 21 H 02/04/19 12:00 100.2 F H 20 02/04/19 11:45 79 106/61 02/04/19 11:43 83 20 95 02/04/19 10:19 20 02/04/19 08:00 29 H 02/04/19 07:42 97 02/04/19 07:22 81 113/64 02/04/19 07:21 88 35 H 100 02/04/19 07:00 98.2 F 02/04/19 06:00 20 02/04/19 04:00 99.1 F 20 02/04/19 02:40 72 Weight Admit Weight 225 lb 4.8 oz Weight 225 lb 4.8 oz Most Recent Monitor Data Heart Rate from ECG 90 NIBP 100/60 NIBP BP-Mean 73 Respiration from ECG 15 SpO2 94 I&O: 02/03/19 02/04/19 02/05/19 06:59 06:59 06:59 Intake Total 1000 9010.6 Output Total 180 1720 530 Balance 820 7290.6 -530 Result Diagrams: 02/04/19 09:03 02/04/19 04:50 Phys Exam - Physical Examination HEENT: PERRLA, sclera anicteric Neck: no JVD, supple Respiratory: no wheezing, no rales Cardiovascular: RRR, no significant murmur Gastrointestinal: soft distention+, wound vac+ Musculoskeletal: no edema, pulses present Neurological: non-focal, moves all 4 limbs Dx/Plan (1) GI bleed Code(s): K92.2 - GASTROINTESTINAL HEMORRHAGE, UNSPECIFIED Status: Acute Qualifiers: GI bleed type/associated pathology: duodenal ulcer Qualified Code(s): K26.4 - Chronic or unspecified duodenal ulcer with hemorrhage Comment: s/p gastrotomy and control of bleeding (2) Acute blood loss anemia Code(s): D62 - ACUTE POSTHEMORRHAGIC ANEMIA Status: Acute Comment: recieved MTP (3) Status post tracheostomy Code(s): Z93.0 - TRACHEOSTOMY STATUS Status: Acute Comment: sec to supraglottic mass for airway (4) Acute respiratory failure Code(s): J96.00 - ACUTE RESPIRATORY FAILURE, UNSP W HYPOXIA OR HYPERCAPNIA Status: Acute Qualifiers: Respiratory failure complication: hypoxia and hypercapnia Qualified Code(s) : J96.01 - Acute respiratory failure with hypoxia; J96.02 - Acute respiratory failure with hypercapnia (5) Epiglottic lesion Code(s): J38.7 - OTHER DISEASES OF LARYNX Status: Acute Comment: await biopsy results (6) Pyriform sinus mass Code(s): R22.0 - LOCALIZED SWELLING, MASS AND LUMP, HEAD Status: Acute Comment: await biopsy results (7) PNA (pneumonia) Code(s): J18.9 - PNEUMONIA, UNSPECIFIED ORGANISM Status: Acute Qualifiers: Pneumonia type: aspiration pneumonia Laterality: right Lung location: middle lobe of lung (8) Tobacco abuse Code(s): Z72.0 - TOBACCO USE Status: Chronic Comment: cigars (9) Hypotension Status: Acute Qualifiers: Hypotension type: hypotension due to hypovolemia Qualified Code(s): I95.89 - Other hypotension; E86.1 - Hypovolemia (10) Dehydration, moderate Code(s): E86.0 - DEHYDRATION Status: Acute (11) COPD (chronic obstructive pulmonary disease) Status: Suspected Qualifiers: COPD type: chronic bronchitis (12) Alcohol abuse Code(s): F10.10 - ALCOHOL ABUSE, UNCOMPLICATED Status: Chronic (13) Hemorrhagic shock Code(s): R57.8 - OTHER SHOCK Status: Acute Comment: sec to profuse gi bleed - Plan is on levophed for pressure support -: likely is going to OR in am for closure of abdomen and omental wash out -: await histopath from laryngeal mass -: is on 1/2 NS, bmp in am -: continue zosyn, steroids for now * . Cognitively stable clinically Prognosis guarded Review of Systems - Medications/Allergies Allergies/Adverse Reactions: Allergies Allergy/AdvReac Type Severity Reaction Status Date / Time No Known Allergies Allergy Verified 02/02/19 18:05 Medications: Current Medications Acetaminophen (Tylenol) 650 mg PO Q4H PRN PRN Reason: Headache/Fever/Mild Pain (1-3) Last Admin: 02/03/19 05:48 Dose: 650 mg Albuterol/Ipratropium (Duoneb) 3 ml NEB [id number] YUN Last Admin: 02/04/19 11:43 Dose: 3 ml Piperacillin Sod/Tazobactam (Sod 3.375 gm/ Sodium Chloride) 100 mls @ 200 mls/ hr IVPB 0300,0900,1500,2100 YUN Last Admin: 02/04/19 14:25 Dose: 100 mls Thiamine HCl 100 mg/ Sodium (Chloride) 51 mls @ 100 mls/hr IVPB 0600,1800 YUN Stop: 02/07/19 20:00 Last Admin: 02/04/19 05:58 Dose: 51 mls Fentanyl Citrate 2,000 mcg/ (Sodium Chloride) 100 mls @ 0 mls/hr IV INF YUN; Protocol Stop: 03/05/19 16:46 Last Admin: 02/04/19 05:30 Dose: 100 mls Fentanyl Citrate (Fentanyl Bolus) 250 mls @ 0 mls/hr IVPB PRN PRN PRN Reason: Breakthrough pain/agitation Stop: 03/05/19 16:46 Potassium Chloride 40 meq/ (Sodium Chloride) 270 mls @ 135 mls/hr IVPB ASDIR PRN PRN Reason: FOR SERUM K+ 2.5 - 3.5 Potassium Chloride 40 meq/ (Device) 100 mls @ 50 mls/hr IVPB ASDIR PRN PRN Reason: FOR SERUM K+ 2.5 - 3.5 Magnesium Sulfate 1 gm/ Sodium (Chloride) 102 mls @ 102 mls/hr IV PRN PRN PRN Reason: MAG LEVEL 1.4 - 2.0 Magnesium Sulfate 2 gm/ Device 50 mls @ 50 mls/hr IVPB ASDIR PRN PRN Reason: MAGNESIUM < 1.4 Potassium Phosphate 9 mmol/ (Sodium Chloride) 103 mls @ 25.75 mls/hr IVPB ASDIR PRN PRN Reason: Phosphate 1.0-1.8 Potassium Phosphate 12 mmol/ (Sodium Chloride) 254 mls @ 63.5 mls/hr IV ASDIR PRN PRN Reason: Serum phosphate 0.5-0.9 Potassium Phosphate 15 mmol/ (Sodium Chloride) 255 mls @ 63.75 mls/hr IV ASDIR PRN PRN Reason: Serum Phos < 0.5 Norepinephrine Bitartrate (Levophed) 250 mls @ 0 mls/hr IVPB INF PRN; Protocol PRN Reason: Blood Pressure Last Admin: 02/04/19 11:50 Dose: 250 mls Sodium Chloride (1/2 Normal Saline) 1,000 mls @ 75 mls/hr IV .[id number] [facility] Last Admin: 02/04/19 08:45 Dose: 1,000 mls Lorazepam (Ativan) 2 mg SLOW IVP Q1H PRN PRN Reason: Breakthrough agitation Stop: 03/05/19 16:46 Last Admin: 02/04/19 14:25 Dose: 2 mg Magnesium Oxide (Magnesium Oxide) 400 mg PO BIDPRN PRN PRN Reason: FOR SERUM MAG 1.4 - 2.0 Magnesium Oxide (Magnesium Oxide) 800 mg PO PRN PRN PRN Reason: FOR SERUM MAG < 1.4 Methylprednisolone Sodium Succinate (Solu-Medrol) 40 mg IVP Q12HR [facility] Last Admin: 02/04/19 08:46 Dose: 40 mg Miscellaneous Medication (Phos-Nak) 1 pkt PO TIDPRN PRN PRN Reason: FOR PHOS LEVEL 1.0 - 1.8 Miscellaneous Medication (Phos-Nak) 2 pkt PO TIDPRN PRN PRN Reason: FOR PHOS LEVEL 0.5 - 1.0 Morphine Sulfate (Morphine) 2 mg SLOW IVP Q1H PRN PRN Reason: BREAKTHROUGH PAIN/Agitation Stop: 03/05/19 16:46 Discontinue Previous Narcotic Pain Medications And Benzodiazepines 1 each FS .ONE [facility] Stop: 03/05/19 16:46 Ccu Electrolyte (Replacement Protocol) 0 each FS PRN PRN PRN Reason: FOR ELECTROLYTE REPLACEMENT Ondansetron HCl (Zofran) 4 mg IVP Q6H PRN PRN Reason: Nausea/Vomiting Last Admin: 02/03/19 00:28 Dose: 4 mg Pantoprazole Sodium (Protonix) 40 mg IVP Q12HR [facility] Last Admin: 02/04/19 08:46 Dose: 40 mg Potassium Chloride (K-Dur) 40 meq PO ASDIR PRN PRN Reason: FOR SERUM K+ 2.5 - 3.5 Potassium Chloride (Klor-Con) 40 meq PER TUBE ASDIR PRN PRN Reason: FOR SERUM K+ 2.5-3.5 Propofol (Diprivan) 1,000 mg IV INF PRN; Protocol PRN Reason: TO ACHIEVE GOAL RASS Stop: 03/05/19 16:46 Last Admin: 02/03/19 19:31 Dose: 1,000 mg Propofol (Diprivan Bolus) 20 mg IV Q5MIN PRN PRN Reason: BREAKTHROUGH AGITATION Stop: 03/05/19 16:46 Senna/Docusate Sodium (Senokot S) 1 tab PO BID YUN Last Admin: 02/04/19 09:37 Dose: Not Given Sodium Chloride (Normal Saline Pf) 10 ml FS PRN PRN PRN Reason: RECONSTITUTION Last Admin: 02/04/19 08:46 Dose: 10 ml Vecuronium Manquin (Norcuron) 10 mg IV Q30MIN PRN PRN Reason: ABDOMINAL CONTRACTIONS Last Admin: 02/04/19 14:25 Dose: 10 mg
[2019-02-04] MEDS ORDERED: Acetaminophen 1,000 MG in Premix Bag 1 BAG IVPB PRN (18:02)
[2019-02-04] MEDS: Propofol 1,000 MG/100 ML VIAL IV PRN (20:09)
[2019-02-04 23:13] LABS: Hemoglobin 8.9 g/dL (14.0-18.0)
[2019-02-05] MEDS: Piperacillin/Tazobactam 3.375 GM in Sodium Chloride 0.9% 100 ML IVPB SCH ×4 (02:05→20:18)
[2019-02-05] MEDS: Norepinephrine 8 MG/250 ML BAG IVPB PRN (02:06)
[2019-02-05 06:08] LABS: #Basophils 0.1 thou/uL (0.0-0.2); #Lymphocytes 1.7 thou/uL (1.20-3.40); #Monocytes 1.6 thou/uL (0.11-0.59); #Neutrophils 13.4 thou/uL (1.40-6.50); %Basophils 0.6 % (0.0-1.0); %Eosinophils 0.1 % (0.0-10.0); %Lymphocytes 10.1 % (21.0-51.0); %Monocytes 9.6 % (0.0-10.0); %Neutrophils 79.5 % (42.0-75.0); Hemoglobin 8.1 g/dL (14.0-18.0); Mean Corpuscular HGB CONC 33.7 g/dL (32.0-36.0); Mean Corpuscular Hemoglobin 31.8 pg (27.0-31.0); Mean Corpuscular Volume 94.3 fL (78.0-98.0); Platelet Count 167 thou/uL (130-400); RBC Distribution Width 14.1 % (11.5-14.5); Red Blood Cell (RBC) Count 2.54 mill/uL (4.70-6.10); White Blood Cell (WBC) Count 16.9 thou/uL (4.8-10.8)
[2019-02-05 06:28] LABS: Anion Gap 9 mmol/L (10-20); BUN (Urea Nitrogen) 32 mg/dL (8.4-25.7); Calc. Creatinine Clearance 90 mL/min (70-130); Carbon Dioxide 31 mmol/L (23-31); Chloride 117 mmol/L (98-107); Estimated GFR-MDRD 57; Glucose 170 mg/dL (80-115); Potassium 3.8 mmol/L (3.5-5.1); Sodium 153 mmol/L (136-145)
--- NOTE | 2019-02-05 07:27 | RAD ---
EXAM: Single view of the chest HISTORY: Pneumonia COMPARISON: 02/04/2019 FINDINGS: Single view of the chest shows an enlarged but stable cardiomediastinal silhouette. The li michael and tubes are unchanged in position. Bilateral veil-like opacity likely represent layering pleural effusions. Adjacent atelectasis may be present. IMPRESSION: Bilateral pleural effusions with adjacent atelectasis
[2019-02-05] MEDS: fentaNYL Citrate/PF 2,000 MCG in Sodium Chloride 0.9% 60 ML IV SCH (08:06)
--- NOTE | 2019-02-05 09:34 | PRG ---
DATE OF SERVICE: 02/05/2019 SERVICE: Pulmonary Medicine. INTERVAL HISTORY: The patient looks absolutely fantastic after his tracheostomy yesterday. His hemoglobins have trended down gently. He denies any current shortness of breath or chest discomfort. He is on a brief sedation holiday this morning just that we can assess his mentation. He is moving all 4 extremities, indicates, he is in no discomfort. He is requiring intermittent paralytics because he has been bearing down coughing from time to time. He has an open belly. PHYSICAL EXAMINATION: VITALS: Afebrile. Currently with a T-max of 100.6. Pulse 74, blood pressure 121/76 respirations 17, saturation 98% on 27% FiO2 and a PEEP of 5. GENERAL: The patient is awake and alert, in no apparent distress. LUNGS: Decent air entry. No prolonged expiratory phase is present. No wheezing or crackles are appreciated. HEART: Normal rate, regular. ABDOMEN: Soft, nontender, nondistended. Bowel sounds are hypoactive. GENITOURINARY: Browning catheter in place. NEUROLOGIC: Grossly nonfocal. LABORATORY DATA: WBC 16.9, hemoglobin 8.9, platelets 167,000. Neutrophil count is stable and lymphocytes and monocyte counts are also stable if not up trending gently. PH 7.40, pCO2 of 48, PO2 of 89. Creatinine 1.26 and downtrending, BUN 32. Basic metabolic profile is otherwise unremarkable except for a sodium and chloride level that are quite elevated. IMAGING: Chest x-ray shows bilateral pleural effusions. There is a right-sided subclavian central venous catheter that terminates in the region of the cavoatrial junction. Enteric catheter courses midline below the level of the diaphragm. Tracheostomy tube is clearly in good position. ASSESSMENT: 1. Acute hypoxic respiratory failure. 2. Head and neck cancer suspected, pathology pending. 3. Status post tracheostomy because of respiratory failure secondary to obstructive lesion. 4. Acute blood loss anemia secondary to gastrointestinal bleed. 5. Duodenal ulcer, status post oversew, postop day one, open belly requiring intermittent paralytics. DISCUSSION AND PLAN: We will continue supportive measurements through time. He will remain on mechanical ventilation with our current backup rate so long as he is requiring intermittent paralytics. I have decreased the rate to 17. Other supportive measures including antibiotics and nebulized medications will be continued. I will back off on the steroids to once daily. PPI twice daily will be continued. I will repeat hemoglobin in the afternoon to make certain we are not still falling off. We will transfuse him to keep him above 7. We will wean pressors through time, and introduce some free water because of his hypernatremia and hyperchloremia. Otherwise, supportive measures will be continued. He will remain in the ICU until he no longer requires mechanical ventilation. Job ID: [id number]
[2019-02-05] MEDS: Dextrose 5% in Water 1,000 ML IV SCH (09:50)
[2019-02-05] MEDS ORDERED: HumaLOG 300 UNITS/3 ML VIAL SC PRN (09:52)
[2019-02-05] MEDS ORDERED: Dextrose 5% in Water 1,000 ML IV PRN (09:52)
[2019-02-05] MEDS: methylPREDNISolone Sod Succ 40 MG VIAL IVP SCH (09:54)
[2019-02-05] MEDS: Pantoprazole 40 MG VIAL IVP SCH ×2 (09:54→20:18)
[2019-02-05] MEDS: Senokot S 8.6-50 MG TAB PO SCH (10:34)
--- NOTE | 2019-02-05 10:56 | PRG ---
DATE OF SERVICE: 02/05/2019 SUBJECTIVE: Andre Benjamin is on a trach ventilator. His Levophed has been weaned, 2 mcg. His pressure is 110/48, . He is awake, mentating normally. He is asking us to pray for him. His gastric drainage is 200 mL in the last 24 hours, VAC output 150 mL, urine output 1965/24 hours. He is having blackish stool indicative of digested blood, no acute bleeding noted. LABORATORY DATA: Hemoglobin 8.1 this morning, white count 16, platelet count 167,000. Sodium 153, potassium 3.8, carbon dioxide 117, BUN 32, creatinine 1.26 down from 1.66, BUN down from 44, GFR 57, and glucose 170 as high as 266 overnight. OBJECTIVE: LUNGS: No wheezing. CARDIAC: Regular rate and rhythm. ABDOMEN: Soft, open abdomen ABThera in place. Right femoral vein Trialysis catheter, right subclavian vein central line, and left femoral vein arterial line. IMAGING STUDIES: Chest x-ray reveals bilateral pleural effusions with some atelectasis. ASSESSMENT AND PLAN: 1. Laryngeal cancer with tracheostomy. 2. Duodenal ulcer with hemorrhagic shock, resolved now recovering in need of abdominal washout, status post laparotomy with a laparotomy pad in place. We will plan abdominal washout, gastrostomy tube drain, omental patch, removal of the packing laparotomy pad. We will plan this today. Job ID: [id number]
--- NOTE | 2019-02-05 13:31 | PDOC.PN ---
- Subjective Encounter Start Date: 02/05/19 Encounter Start Time: 06:45 Subjective: awakens easily, on vent - Objective Resuscitation Status - Order Detail: 02/02/19 18:26 Resuscitation Status Routine Resuscitation Status: FULL: Full Resuscitation MAR Reviewed: Yes Vital Signs & Weight: Vital Signs (12 hours) Temp Pulse Resp BP Pulse Ox 02/05/19 12:00 20 02/05/19 11:13 100.2 F H 02/05/19 10:20 100.5 F H 23 H 94 L 02/05/19 10:17 99 132/73 02/05/19 10:16 105 H 28 H 96 02/05/19 10:00 18 02/05/19 08:00 20 02/05/19 07:38 75 20 97 02/05/19 07:21 98 02/05/19 07:04 78 109/64 02/05/19 07:00 98.6 F 02/05/19 06:00 20 02/05/19 04:00 20 02/05/19 03:00 99.5 F 02/05/19 02:32 81 20 92 L 02/05/19 02:00 20 Weight Admit Weight 225 lb 4.8 oz Weight 242 lb 4.608 oz Most Recent Monitor Data Heart Rate from ECG 78 NIBP 125/71 NIBP BP-Mean 89 Respiration from ECG 20 SpO2 93 I&O: 02/04/19 02/05/19 02/06/19 06:59 06:59 06:59 Intake Total 9010.6 2863.6 0 Output Total 1720 2315 640 Balance 7290.6 548.6 -640 Result Diagrams: 02/05/19 05:47 02/05/19 05:47 Additional Labs: Accuchecks 02/05/19 02/03/19 12:32 16:15 POC Glucose 102 266 H Phys Exam - Physical Examination HEENT: PERRLA, sclera anicteric Neck: no JVD, supple Respiratory: no wheezing, no rales Cardiovascular: RRR, no significant murmur Gastrointestinal: soft open abd wound in vac Musculoskeletal: no edema, pulses present Neurological: non-focal, moves all 4 limbs Dx/Plan (1) GI bleed Code(s): K92.2 - GASTROINTESTINAL HEMORRHAGE, UNSPECIFIED Status: Acute Qualifiers: GI bleed type/associated pathology: duodenal ulcer Qualified Code(s): K26.4 - Chronic or unspecified duodenal ulcer with hemorrhage Comment: s/p gastrotomy and control of bleeding (2) Acute blood loss anemia Code(s): D62 - ACUTE POSTHEMORRHAGIC ANEMIA Status: Acute Comment: recieved MTP (3) Status post tracheostomy Code(s): Z93.0 - TRACHEOSTOMY STATUS Status: Acute Comment: sec to supraglottic mass for airway (4) Acute respiratory failure Code(s): J96.00 - ACUTE RESPIRATORY FAILURE, UNSP W HYPOXIA OR HYPERCAPNIA Status: Acute Qualifiers: Respiratory failure complication: hypoxia and hypercapnia Qualified Code(s) : J96.01 - Acute respiratory failure with hypoxia; J96.02 - Acute respiratory failure with hypercapnia (5) Epiglottic lesion Code(s): J38.7 - OTHER DISEASES OF LARYNX Status: Acute Comment: await biopsy results (6) Pyriform sinus mass Code(s): R22.0 - LOCALIZED SWELLING, MASS AND LUMP, HEAD Status: Acute Comment: await biopsy results (7) PNA (pneumonia) Code(s): J18.9 - PNEUMONIA, UNSPECIFIED ORGANISM Status: Acute Qualifiers: Pneumonia type: aspiration pneumonia Laterality: right Lung location: middle lobe of lung (8) Tobacco abuse Code(s): Z72.0 - TOBACCO USE Status: Chronic Comment: cigars (9) Hypotension Status: Acute Qualifiers: Hypotension type: hypotension due to hypovolemia Qualified Code(s): I95.89 - Other hypotension; E86.1 - Hypovolemia (10) Dehydration, moderate Code(s): E86.0 - DEHYDRATION Status: Acute (11) COPD (chronic obstructive pulmonary disease) Status: Suspected Qualifiers: COPD type: chronic bronchitis (12) Alcohol abuse Code(s): F10.10 - ALCOHOL ABUSE, UNCOMPLICATED Status: Chronic (13) Hemorrhagic shock Code(s): R57.8 - OTHER SHOCK Status: Acute Comment: sec to profuse gi bleed (14) ELIZABETH (acute kidney injury) Code(s): N17.9 - ACUTE KIDNEY FAILURE, UNSPECIFIED Status: Acute - Plan is going to OR for wash out and closure of abdominal wall today -: to recieve 1 u prbc prior to OR -: is on tapering dose of levophed -: protonix q12h, nebs, zosyn -: prognosis guarded, is on D5W * . Will watch for electrolytes and renal function serial H/H. Transfuse if Hb <8g or if need for levophed increases due to bleeding (pt is unstable with pressors and gastric hemorrhage plus vent). Review of Systems - Medications/Allergies Allergies/Adverse Reactions: Allergies Allergy/AdvReac Type Severity Reaction Status Date / Time No Known Allergies Allergy Verified 02/02/19 18:05 Medications: Current Medications Acetaminophen (Tylenol) 650 mg PO Q4H PRN PRN Reason: Headache/Fever/Mild Pain (1-3) Last Admin: 02/03/19 05:48 Dose: 650 mg Albuterol/Ipratropium (Duoneb) 3 ml NEB [id number] Last Admin: 02/05/19 10:16 Dose: 3 ml Dextrose/Water (Dextrose 50%) 25 gm SLOW IVP PRN PRN PRN Reason: Hypoglycemia Glucagon (Glucagon) 1 mg IM PRN PRN PRN Reason: Hypoglycemia Piperacillin Sod/Tazobactam (Sod 3.375 gm/ Sodium Chloride) 100 mls @ 200 mls/ hr IVPB 0300,0900,1500,2100 YUN Last Admin: 02/05/19 09:53 Dose: 100 mls Thiamine HCl 100 mg/ Sodium (Chloride) 51 mls @ 100 mls/hr IVPB 0600,1800 YUN Stop: 02/07/19 20:00 Last Admin: 02/05/19 05:18 Dose: 51 mls Fentanyl Citrate 2,000 mcg/ (Sodium Chloride) 100 mls @ 0 mls/hr IV INF YUN; Protocol Stop: 03/05/19 16:46 Last Admin: 02/05/19 08:06 Dose: 100 mls Fentanyl Citrate (Fentanyl Bolus) 250 mls @ 0 mls/hr IVPB PRN PRN PRN Reason: Breakthrough pain/agitation Stop: 03/05/19 16:46 Potassium Chloride 40 meq/ (Sodium Chloride) 270 mls @ 135 mls/hr IVPB ASDIR PRN PRN Reason: FOR SERUM K+ 2.5 - 3.5 Potassium Chloride 40 meq/ (Device) 100 mls @ 50 mls/hr IVPB ASDIR PRN PRN Reason: FOR SERUM K+ 2.5 - 3.5 Magnesium Sulfate 1 gm/ Sodium (Chloride) 102 mls @ 102 mls/hr IV PRN PRN PRN Reason: MAG LEVEL 1.4 - 2.0 Magnesium Sulfate 2 gm/ Device 50 mls @ 50 mls/hr IVPB ASDIR PRN PRN Reason: MAGNESIUM < 1.4 Potassium Phosphate 9 mmol/ (Sodium Chloride) 103 mls @ 25.75 mls/hr IVPB ASDIR PRN PRN Reason: Phosphate 1.0-1.8 Potassium Phosphate 12 mmol/ (Sodium Chloride) 254 mls @ 63.5 mls/hr IV ASDIR PRN PRN Reason: Serum phosphate 0.5-0.9 Potassium Phosphate 15 mmol/ (Sodium Chloride) 255 mls @ 63.75 mls/hr IV ASDIR PRN PRN Reason: Serum Phos < 0.5 Norepinephrine Bitartrate (Levophed) 250 mls @ 0 mls/hr IVPB INF PRN; Protocol PRN Reason: Blood Pressure Last Admin: 02/05/19 02:06 Dose: 250 mls Acetaminophen 1,000 mg/ Device 100 mls @ 400 mls/hr IVPB Q6H PRN PRN Reason: MILD FEVER <100.4 Stop: 02/05/19 18:03 Last Admin: 02/04/19 18:36 Dose: 100 mls Dextrose/Water (D5w) 1,000 mls @ 75 mls/hr IV .[id number] [facility] Last Admin: 02/05/19 09:50 Dose: 1,000 mls Dextrose/Water (D5w) 1,000 mls @ 0 mls/hr IV .Q0M PRN PRN Reason: Hypoglycemia Insulin Human Lispro (Humalog) 0 units SC .MILD SLIDING SCALE PRN PRN Reason: Mild Correctional Scale Lorazepam (Ativan) 2 mg SLOW IVP Q1H PRN PRN Reason: Breakthrough agitation Stop: 03/05/19 16:46 Last Admin: 02/04/19 17:35 Dose: 2 mg Magnesium Oxide (Magnesium Oxide) 400 mg PO BIDPRN PRN PRN Reason: FOR SERUM MAG 1.4 - 2.0 Magnesium Oxide (Magnesium Oxide) 800 mg PO PRN PRN PRN Reason: FOR SERUM MAG < 1.4 Methylprednisolone Sodium Succinate (Solu-Medrol) 40 mg IVP DAILY [facility] Last Admin: 02/05/19 09:54 Dose: 40 mg Miscellaneous Medication (Phos-Nak) 1 pkt PO TIDPRN PRN PRN Reason: FOR PHOS LEVEL 1.0 - 1.8 Miscellaneous Medication (Phos-Nak) 2 pkt PO TIDPRN PRN PRN Reason: FOR PHOS LEVEL 0.5 - 1.0 Morphine Sulfate (Morphine) 2 mg SLOW IVP Q1H PRN PRN Reason: BREAKTHROUGH PAIN/Agitation Stop: 03/05/19 16:46 Discontinue Previous Narcotic Pain Medications And Benzodiazepines 1 each FS .ONE YUN Stop: 03/05/19 16:46 Ccu Electrolyte (Replacement Protocol) 0 each FS PRN PRN PRN Reason: FOR ELECTROLYTE REPLACEMENT Ondansetron HCl (Zofran) 4 mg IVP Q6H PRN PRN Reason: Nausea/Vomiting Last Admin: 02/03/19 00:28 Dose: 4 mg Pantoprazole Sodium (Protonix) 40 mg IVP Q12HR [facility] Last Admin: 02/05/19 09:54 Dose: 40 mg Potassium Chloride (K-Dur) 40 meq PO ASDIR PRN PRN Reason: FOR SERUM K+ 2.5 - 3.5 Potassium Chloride (Klor-Con) 40 meq PER TUBE ASDIR PRN PRN Reason: FOR SERUM K+ 2.5-3.5 Propofol (Diprivan) 1,000 mg IV INF PRN; Protocol PRN Reason: TO ACHIEVE GOAL RASS Stop: 03/05/19 16:46 Last Admin: 02/04/19 20:09 Dose: 1,000 mg Propofol (Diprivan Bolus) 20 mg IV Q5MIN PRN PRN Reason: BREAKTHROUGH AGITATION Stop: 03/05/19 16:46 Senna/Docusate Sodium (Senokot S) 1 tab PO BID [facility] Last Admin: 02/05/19 10:34 Dose: Not Given Sodium Chloride (Normal Saline Pf) 10 ml FS PRN PRN PRN Reason: RECONSTITUTION Last Admin: 02/04/19 20:08 Dose: 10 ml Vecuronium [place] (Norcuron) 10 mg IV Q30MIN PRN PRN Reason: ABDOMINAL CONTRACTIONS Last Admin: 02/04/19 23:04 Dose: 10 mg
[2019-02-05 14:54] LABS: Hemoglobin 9.1 g/dL (14.0-18.0)
[2019-02-05] MEDS ORDERED: Fentanyl 100 MCG/2 ML VIAL ONE (14:54)
[2019-02-05] MEDS ORDERED: Midazolam HCl 2 mg/2 ml Vial ONE (14:54)
--- NOTE | 2019-02-05 16:04 | PRG ---
DATE OF SERVICE: 02/05/2019 SUBJECTIVE: Mr. Benjamin has some abdominal pain. He is planned to go back for abdominal washout today. OBJECTIVE: VITAL SIGNS: He has blood pressure 121/54, pulse 78, temperature 100.5 this morning. GENERAL: He is in no acute distress. HEENT: He has an NG tube in place. A trach in place with the ventilator. LUNGS: Clear to auscultation bilaterally. HEART: Regular rate and rhythm. ABDOMEN: Has soft and has an open wound, for which the wound VAC is in place. EXTREMITIES: No lower extremity edema. LABORATORY DATA: His creatinine is improved to 1.26 from 1.35 yesterday. White blood cell count 16.9, hemoglobin 8.1, platelets 167. IMPRESSION: 1. Acute bleed from duodenal ulcer with hemorrhagic shock, requiring surgical repair. 2. Anemia of acute blood loss. PLAN: 1. He is to go for abdominal washout today. 2. Management per General Surgery and Internal Medicine. GI will sign off for now. Please call if we can be of assistance. Job ID: [id number]
[2019-02-05] MEDS ORDERED: Rocuronium Bromide 10 MG/ML (10ML VIAL) ONE (16:30)
[2019-02-05] MEDS: Propofol 1,000 MG/100 ML VIAL IV PRN (22:15)
--- NOTE | 2019-02-05 22:30 | OP ---
DATE OF PROCEDURE: 02/04/2019 PREOPERATIVE DIAGNOSES: Open abdomen, abdominal lap packing for duodenal ulcer hemorrhage, pyloroplasty, duodenal ulcer over-sew, laryngeal cancer, status post tracheostomy. PROCEDURE PERFORMED: Reopening recent laparotomy with abdominal washout, placement of a MARIBETH drain, retrieval of the laparotomy pad packing; 26-Chinese gastrostomy tube, Mallinckrodt tube. Seprafilm placement. Fascial primary closure with abdominal wound VAC in place. No intention return to the operating room again. DESCRIPTION OF PROCEDURE: The patient was taken to the operating room where under general anesthesia, ABThera was removed. Abdomen was prepared with Betadine and the internal portion of the ABThera removed. Abdomen was irrigated in all quadrants with saline solution and everything was very clean and not dilated and not edematous. Laparotomy pad that had been used as a packing from previous operation was removed. Good hemostasis was noted. The pyloroplasty closure was noted to be intact. #19 gold MARIBETH drain placed through in the right upper quadrant subhepatic Morison's pouch, brought out through the right subcostal incision, secured with 3-0 nylon suture. #26-Chinese gastrostomy tube brought out through the left upper quadrant subcostal and placed within the stomach and lumen, held in place with two pursestring sutures of 2-0 silk and then secured to the abdominal wall with 4 quadrant sutures of 2-0 silk. Good hemostasis noted. Seprafilm placed between the viscera and abdominal wall, good hemostasis was noted. Fascia was approximated with continuous suture of #1 PDS. Skin was approximated loosely with max with openings left intermittently and Wound Care Team arrived to place a wound VAC. The patient tolerated the procedure well. Job ID: [id number]
[2019-02-06] MEDS: fentaNYL Citrate/PF 2,000 MCG in Sodium Chloride 0.9% 60 ML IV SCH (01:38)
[2019-02-06] MEDS: Dextrose 5% in Water 1,000 ML IV SCH ×2 (02:38→09:15)
[2019-02-06] MEDS: Piperacillin/Tazobactam 3.375 GM in Sodium Chloride 0.9% 100 ML IVPB SCH ×4 (03:07→20:40)
[2019-02-06 06:12] LABS: #Basophils 0.1 thou/uL (0.0-0.2); #Lymphocytes 2.2 thou/uL (1.20-3.40); #Monocytes 1.2 thou/uL (0.11-0.59); #Neutrophils 10.6 thou/uL (1.40-6.50); %Eosinophils 0.1 % (0.0-10.0); %Lymphocytes 15.7 % (21.0-51.0); %Monocytes 8.5 % (0.0-10.0); %Neutrophils 74.6 % (42.0-75.0); Hemoglobin 8.7 g/dL (14.0-18.0); Mean Corpuscular HGB CONC 33.1 g/dL (32.0-36.0); Mean Corpuscular Hemoglobin 31.5 pg (27.0-31.0); Mean Corpuscular Volume 95.4 fL (78.0-98.0); Mean Platelet Volume 7.1 fL (7.4-10.4); Platelet Count 162 thou/uL (130-400); RBC Distribution Width 14.1 % (11.5-14.5); Red Blood Cell (RBC) Count 2.76 mill/uL (4.70-6.10); White Blood Cell (WBC) Count 14.2 thou/uL (4.8-10.8)
[2019-02-06 06:32] LABS: Phosphorus 2.3 mg/dL (2.3-4.7)
[2019-02-06 06:34] LABS: Anion Gap 9 mmol/L (10-20); BUN (Urea Nitrogen) 31 mg/dL (8.4-25.7); Calc. Creatinine Clearance 86 mL/min (70-130); Calcium 7.7 mg/dL (7.8-10.44); Carbon Dioxide 30 mmol/L (23-31); Chloride 114 mmol/L (98-107); Estimated GFR-MDRD 54; Glucose 110 mg/dL (80-115); Magnesium 1.9 mg/dL (1.6-2.6); Potassium 3.7 mmol/L (3.5-5.1); Sodium 149 mmol/L (136-145)
[2019-02-06 06:36] LABS: ALT (SGPT) 31 U/L (8-55); AST (SGOT) 34 U/L (5-34); Albumin 2.4 g/dL (3.4-4.8); Alkaline Phosphatase 40 U/L (40-150); Bilirubin, Direct 0.6 mg/dL (0.1-0.3); Bilirubin, Total 0.9 mg/dL (0.2-1.2); Protein, Total 4.5 g/dL (5.8-8.1)
[2019-02-06] MEDS: methylPREDNISolone Sod Succ 40 MG VIAL IVP SCH (09:16)
[2019-02-06] MEDS: Pantoprazole 40 MG VIAL IVP SCH ×2 (09:16→20:41)
[2019-02-06] MEDS: Sodium Chloride 0.9% (PF) 10 ML VIAL FS PRN ×2 (09:16→20:41)
--- NOTE | 2019-02-06 10:15 | PRG ---
DATE OF SERVICE: 02/06/2019 SERVICE: Pulmonary Medicine. INTERVAL HISTORY: The patient is doing really well from respiratory standpoint. He is breathing comfortably on mechanical ventilation. He is talking almost continuously despite the fact he is on significant sedation and pain medication. That being said, he is breathing very comfortably. There is significant dyssynchrony because of the way that he is attempting to speak on the ventilator. There have been no events overnight. He had a lot of bloody secretions that were short lived. PHYSICAL EXAMINATION: VITAL SIGNS: Afebrile currently with a T-max overnight of 100.6, pulse 71, blood pressure 117/56, respirations 20, saturation 99% on 27% FiO2 and a PEEP of 5. GENERAL: The patient is awake and alert. No apparent distress. LUNGS: Decent air entry. Minimal crackles are present. There is no prolonged expiratory phase or wheezing appreciated. HEART: Normal rate, regular. ABDOMEN: Soft, nontender, and nondistended. Bowel sounds are positive. MUSCULOSKELETAL: No cyanosis or clubbing. There is 1+ pitting in the bilateral lower extremities. NEUROLOGIC: Grossly nonfocal. LABORATORY DATA: WBC 14.2, hemoglobin 8.7, platelets 162,000. Sodium is 149 and gently downtrending, chloride 114, also downtrending. Creatinine 1.32, which is increasing. Calcium 7.7, magnesium 1.9, phosphorus 2.3. Liver function studies are essentially unremarkable, otherwise. ASSESSMENT: 1. Acute hypoxic respiratory failure, improving. 2. Head and neck cancer, suspected, pathology pending. 3. Status post tracheostomy secondary to upper airway obstruction. 4. Acute blood loss anemia secondary to gastrointestinal bleed. 5. Duodenal ulcer, status post oversew. DISCUSSION AND PLAN: Now, the patient's belly is closed. All sedation will be held. We will continue p.r.n. pain medication. I will put him on spontaneous breathing trial at 5/5. If he meets criteria, we will consider T-collar trials later this morning. We will continue our free water for the time being because he remains a little hypernatremic. We will start mobilizing the patient as tolerated. CRITICAL CARE TIME: 30 minutes. Job ID: [id number]
--- NOTE | 2019-02-06 11:17 | PRG ---
DATE OF SERVICE: 02/06/2019 SUBJECTIVE: Andre Benjamin is a 68-year-old male patient, doing well today after closure of abdomen placing the drain NG tube. He has been removed from the ventilator. His tracheostomy is stable. He is awake and communicative. OBJECTIVE: VITAL SIGNS: Blood pressure 117/56, heart rate 71. LUNGS: Clear to auscultation. CARDIAC: Regular rate and rhythm without murmur or gallop. ABDOMEN: Soft. Postoperative tenderness. Wound VAC in place. EXTREMITIES: Unremarkable. LABORATORY DATA: White count 14, hemoglobin 8.7. Basic metabolic profile is normal. BUN 31, creatinine 1.32, sodium 149, potassium 3.7. His G tube has had very little output. MARIBETH drain, serosanguineous 150. Urine output 1965. ASSESSMENT/PLAN: 1. The patient is doing well status post tracheostomy for laryngeal cancer suspect. 2. Status post duodenostomy, pyloroplasty for hemorrhaging duodenal ulcer with open abdomen, subsequent closure yesterday, G-tube placed. Abdomen is soft and nontender. There is no evidence of ongoing bleeding. The drain is serosanguineous. At this point, he is doing well. I would recommend Physical Therapy consult, mobility up in a chair. We will continue his G tube to gravity as far as his nutrition. Would plan to initiate TPN tomorrow. We will have Dietary see him regarding TPN recommendations. We will also get tube feeding recommendations. We probably can start the tube feedings in the next few days after allowing time for his duodenostomy to close. Job ID: [id number]
[2019-02-06] MEDS: Morphine 2 MG/ML SYRINGE SLOW IVP PRN ×4 (11:47→20:40)
--- NOTE | 2019-02-06 11:57 | PDOC.PN ---
- Subjective Encounter Start Date: 02/06/19 Encounter Start Time: 08:40 Subjective: awake, weaning off vent -: responds well to verbal questions - Objective Resuscitation Status - Order Detail: 02/02/19 18:26 Resuscitation Status Routine Resuscitation Status: FULL: Full Resuscitation MAR Reviewed: Yes Vital Signs & Weight: Vital Signs (12 hours) Temp Pulse Resp BP Pulse Ox 02/06/19 11:40 84 19 93 L 02/06/19 09:30 92 L 02/06/19 08:00 17 02/06/19 07:42 71 84/51 L 02/06/19 07:38 77 17 99 02/06/19 07:00 99.0 F 02/06/19 04:00 99.0 F 97 02/06/19 02:18 72 02/06/19 02:17 72 17 98 02/06/19 02:00 99.5 F 22 H 02/06/19 00:00 98.9 F 22 H Weight Admit Weight 225 lb 4.8 oz Weight 242 lb 4.608 oz Most Recent Monitor Data Heart Rate from ECG 85 NIBP 84/51 NIBP BP-Mean 62 Respiration from ECG 22 SpO2 91 I&O: 02/05/19 02/06/19 02/07/19 06:59 06:59 06:59 Intake Total 2863.6 2491.5 213.4 Output Total 2315 1910 150 Balance 548.6 581.5 63.4 Result Diagrams: 02/06/19 05:55 02/06/19 05:55 Additional Labs: Accuchecks 02/06/19 02/06/19 02/05/19 11:16 05:55 17:42 POC Glucose 110 107 133 H 02/05/19 12:32 POC Glucose 102 Phys Exam - Physical Examination HEENT: PERRLA, sclera anicteric Neck: no JVD, supple Respiratory: no wheezing, no rales Cardiovascular: RRR, no significant murmur Gastrointestinal: soft surgical site in wound vac Musculoskeletal: no edema, pulses present Neurological: non-focal, moves all 4 limbs Dx/Plan (1) GI bleed Code(s): K92.2 - GASTROINTESTINAL HEMORRHAGE, UNSPECIFIED Status: Acute Qualifiers: GI bleed type/associated pathology: duodenal ulcer Qualified Code(s): K26.4 - Chronic or unspecified duodenal ulcer with hemorrhage Comment: s/p gastrotomy and control of bleeding (2) Acute blood loss anemia Code(s): D62 - ACUTE POSTHEMORRHAGIC ANEMIA Status: Acute Comment: recieved MTP (total of 15u prbc, 3 liq plasma, 6 ffp, 2 platelet and 1 cryo were given in total this admission) (3) Status post tracheostomy Code(s): Z93.0 - TRACHEOSTOMY STATUS Status: Acute Comment: sec to supraglottic mass for airway (4) Acute respiratory failure Code(s): J96.00 - ACUTE RESPIRATORY FAILURE, UNSP W HYPOXIA OR HYPERCAPNIA Status: Acute Qualifiers: Respiratory failure complication: hypoxia and hypercapnia Qualified Code(s) : J96.01 - Acute respiratory failure with hypoxia; J96.02 - Acute respiratory failure with hypercapnia Comment: resolving (5) Epiglottic lesion Code(s): J38.7 - OTHER DISEASES OF LARYNX Status: Acute Comment: await biopsy results (6) Pyriform sinus mass Code(s): R22.0 - LOCALIZED SWELLING, MASS AND LUMP, HEAD Status: Acute Comment: await biopsy results (7) PNA (pneumonia) Code(s): J18.9 - PNEUMONIA, UNSPECIFIED ORGANISM Status: Acute Qualifiers: Pneumonia type: aspiration pneumonia Laterality: right Lung location: middle lobe of lung (8) Tobacco abuse Code(s): Z72.0 - TOBACCO USE Status: Chronic Comment: cigars (9) Hypotension Status: Resolved Qualifiers: Hypotension type: hypotension due to hypovolemia Qualified Code(s): I95.89 - Other hypotension; E86.1 - Hypovolemia (10) Dehydration, moderate Code(s): E86.0 - DEHYDRATION Status: Resolved (11) COPD (chronic obstructive pulmonary disease) Status: Suspected Qualifiers: COPD type: chronic bronchitis (12) Alcohol abuse Code(s): F10.10 - ALCOHOL ABUSE, UNCOMPLICATED Status: Chronic (13) Hemorrhagic shock Code(s): R57.8 - OTHER SHOCK Status: Resolved Comment: sec to profuse gi bleed (14) ELIZABETH (acute kidney injury) Code(s): N17.9 - ACUTE KIDNEY FAILURE, UNSPECIFIED Status: Acute - Plan h/h and renal function is stablizing -: on D5W for hypernatremia -: likely will be weaned off vent today -: has g tube to gravity -: is off pressors, art sbp is 130. May remove art line if ok with surg/Bradin * . Hemodynamically stable now. Continue protonix q12h, zosyn, steroid daily. PT to mobilize from am if stable. Review of Systems - Medications/Allergies Allergies/Adverse Reactions: Allergies Allergy/AdvReac Type Severity Reaction Status Date / Time No Known Allergies Allergy Verified 02/02/19 18:05 Medications: Current Medications Albuterol/Ipratropium (Duoneb) 3 ml NEB [id number] [facility] Last Admin: 02/06/19 11:40 Dose: 3 ml Dextrose/Water (Dextrose 50%) 25 gm SLOW IVP PRN PRN PRN Reason: Hypoglycemia Enoxaparin Sodium (Lovenox) 40 mg SC 2100 [facility] Glucagon (Glucagon) 1 mg IM PRN PRN PRN Reason: Hypoglycemia Piperacillin Sod/Tazobactam (Sod 3.375 gm/ Sodium Chloride) 100 mls @ 200 mls/ hr IVPB 0300,0900,1500,2100 [facility] Last Admin: 02/06/19 09:15 Dose: 100 mls Thiamine HCl 100 mg/ Sodium (Chloride) 51 mls @ 100 mls/hr IVPB 0600,1800 [facility] Stop: 02/07/19 20:00 Last Admin: 02/06/19 06:17 Dose: 51 mls Potassium Chloride 40 meq/ (Sodium Chloride) 270 mls @ 135 mls/hr IVPB ASDIR PRN PRN Reason: FOR SERUM K+ 2.5 - 3.5 Potassium Chloride 40 meq/ (Device) 100 mls @ 50 mls/hr IVPB ASDIR PRN PRN Reason: FOR SERUM K+ 2.5 - 3.5 Magnesium Sulfate 1 gm/ Sodium (Chloride) 102 mls @ 102 mls/hr IV PRN PRN PRN Reason: MAG LEVEL 1.4 - 2.0 Last Admin: 02/06/19 11:11 Dose: 102 mls Potassium Phosphate 9 mmol/ (Sodium Chloride) 103 mls @ 25.75 mls/hr IVPB ASDIR PRN PRN Reason: Phosphate 1.0-1.8 Potassium Phosphate 12 mmol/ (Sodium Chloride) 254 mls @ 63.5 mls/hr IV ASDIR PRN PRN Reason: Serum phosphate 0.5-0.9 Potassium Phosphate 15 mmol/ (Sodium Chloride) 255 mls @ 63.75 mls/hr IV ASDIR PRN PRN Reason: Serum Phos < 0.5 Dextrose/Water (D5w) 1,000 mls @ 75 mls/hr IV .[id number] [facility] Last Admin: 02/06/19 09:15 Dose: 1,000 mls Dextrose/Water (D5w) 1,000 mls @ 0 mls/hr IV .Q0M PRN PRN Reason: Hypoglycemia Insulin Human Lispro (Humalog) 0 units SC .MILD SLIDING SCALE PRN PRN Reason: Mild Correctional Scale Magnesium Oxide (Magnesium Oxide) 400 mg PO BIDPRN PRN PRN Reason: FOR SERUM MAG 1.4 - 2.0 Methylprednisolone Sodium Succinate (Solu-Medrol) 40 mg IVP DAILY [facility] Last Admin: 02/06/19 09:16 Dose: 40 mg Miscellaneous Medication (Phos-Nak) 1 pkt PO TIDPRN PRN PRN Reason: FOR PHOS LEVEL 1.0 - 1.8 Morphine Sulfate (Morphine) 2 mg SLOW IVP Q1H PRN PRN Reason: BREAKTHROUGH PAIN/Agitation Stop: 03/05/19 16:46 Last Admin: 02/06/19 11:47 Dose: 2 mg Discontinue Previous Narcotic Pain Medications And Benzodiazepines 1 each FS .ONE [facility] Stop: 03/05/19 16:46 Ccu Electrolyte (Replacement Protocol) 0 each FS PRN PRN PRN Reason: FOR ELECTROLYTE REPLACEMENT Ondansetron HCl (Zofran) 4 mg IVP Q6H PRN PRN Reason: Nausea/Vomiting Last Admin: 02/03/19 00:28 Dose: 4 mg Pantoprazole Sodium (Protonix) 40 mg IVP Q12HR [facility] Last Admin: 02/06/19 09:16 Dose: 40 mg Sodium Chloride (Normal Saline Pf) 10 ml FS PRN PRN PRN Reason: RECONSTITUTION Last Admin: 02/06/19 09:16 Dose: 10 ml
[2019-02-06] MEDS: Enoxaparin Sodium 40 MG/0.4 ML SYRINGE SC SCH (20:40)
[2019-02-07] MEDS: Dextrose 5% in Water 1,000 ML IV SCH ×2 (02:57→15:46)
[2019-02-07] MEDS: Piperacillin/Tazobactam 3.375 GM in Sodium Chloride 0.9% 100 ML IVPB SCH ×4 (02:58→20:06)
[2019-02-07 04:15] LABS: #Neutrophils 10.5 thou/uL (1.40-6.50); %Basophils 0.4 % (0.0-1.0); %Eosinophils 0.2 % (0.0-10.0); %Lymphocytes 14.9 % (21.0-51.0); %Monocytes 7.5 % (0.0-10.0); %Neutrophils 77.1 % (42.0-75.0); Mean Corpuscular Volume 96.8 fL (78.0-98.0); Mean Platelet Volume 7.1 fL (7.4-10.4); Platelet Count 185 thou/uL (130-400); RBC Distribution Width 14.1 % (11.5-14.5); Red Blood Cell (RBC) Count 2.59 mill/uL (4.70-6.10); White Blood Cell (WBC) Count 13.6 thou/uL (4.8-10.8)
[2019-02-07 04:33] LABS: Anion Gap 11 mmol/L (10-20); BUN (Urea Nitrogen) 28 mg/dL (8.4-25.7); Calc. Creatinine Clearance 102 mL/min (70-130); Calcium 7.6 mg/dL (7.8-10.44); Carbon Dioxide 30 mmol/L (23-31); Chloride 113 mmol/L (98-107); Estimated GFR-MDRD 66; Glucose 107 mg/dL (80-115); Potassium 3.9 mmol/L (3.5-5.1); Sodium 150 mmol/L (136-145)
--- NOTE | 2019-02-07 08:53 | PRG ---
DATE OF SERVICE: 02/07/2019 SUBJECTIVE: Gentleman remains in the ICU with a trach collar in place. He has laryngeal cancer. Path is still pending. OBJECTIVE: GENERAL: He appears to be in no distress. VITAL SIGNS: Pulse 69, blood pressure 133/70, saturations are 100%, respiratory rate 24. CHEST: Decreased breath sounds. Anterior rhonchi. CARDIAC: Normal S1, S2. No gallops. ABDOMEN: No masses. LABORATORY DATA: His sodium is 150, may be prerenal. White count 13,000. H and H, 8 and 27. Lytes are normal. IMPRESSION: 1. Laryngeal carcinoma, trach. 2. Respiratory failure, trach. 3. Chronic obstructive pulmonary disease. 4. Tobacco abuse. 5. Peptic ulcer disease. PLAN: Continue supportive care, neb treatments, steroids, antibiotics. Keep in the ICU until we have final path. Job ID: [id number]
[2019-02-07] MEDS: Pantoprazole 40 MG VIAL IVP SCH ×2 (11:08→20:07)
[2019-02-07] MEDS: methylPREDNISolone Sod Succ 40 MG VIAL IVP SCH (11:12)
--- NOTE | 2019-02-07 12:44 | PDOC.PN ---
- Subjective Encounter Start Date: 02/07/19 Encounter Start Time: 12:00 Subjective: awake, no sob -: responds well to verbal stimuli - Objective Resuscitation Status - Order Detail: 02/02/19 18:26 Resuscitation Status Routine Resuscitation Status: FULL: Full Resuscitation MAR Reviewed: Yes Vital Signs & Weight: Vital Signs (12 hours) Temp Pulse Resp Pulse Ox 02/07/19 08:07 99 02/07/19 08:02 63 20 99 02/07/19 04:00 98.8 F 02/07/19 02:23 58 L 19 100 Weight Admit Weight 225 lb 4.8 oz Weight 248 lb 3.848 oz Most Recent Monitor Data Heart Rate from ECG 65 NIBP 137/60 NIBP BP-Mean 85 Respiration from ECG 19 SpO2 98 I&O: 02/06/19 02/07/19 02/08/19 06:59 06:59 06:59 Intake Total 2491.5 2417.2 Output Total 1910 2500 Balance 581.5 -82.8 Result Diagrams: 02/07/19 04:05 02/07/19 04:05 Additional Labs: Accuchecks 02/07/19 02/06/19 04:04 22:14 POC Glucose 110 128 H Phys Exam - Physical Examination HEENT: PERRLA, sclera anicteric Neck: no JVD trach+ Respiratory: no wheezing, no rales Cardiovascular: RRR, no significant murmur Gastrointestinal: soft, no distention peg+, wound vac+ Musculoskeletal: pulses present, edema present UE fingertips are cyanotic Neurological: non-focal, moves all 4 limbs Psychiatric: A&O x 3 Dx/Plan (1) GI bleed Code(s): K92.2 - GASTROINTESTINAL HEMORRHAGE, UNSPECIFIED Status: Acute Qualifiers: GI bleed type/associated pathology: duodenal ulcer Qualified Code(s): K26.4 - Chronic or unspecified duodenal ulcer with hemorrhage Comment: s/p gastrotomy and control of bleeding (2) Acute blood loss anemia Code(s): D62 - ACUTE POSTHEMORRHAGIC ANEMIA Status: Acute Comment: recieved MTP (total of 15u prbc, 3 liq plasma, 6 ffp, 2 platelet and 1 cryo were given in total this admission) (3) Status post tracheostomy Code(s): Z93.0 - TRACHEOSTOMY STATUS Status: Acute Comment: sec to supraglottic mass for airway (4) Acute respiratory failure Code(s): J96.00 - ACUTE RESPIRATORY FAILURE, UNSP W HYPOXIA OR HYPERCAPNIA Status: Acute Qualifiers: Respiratory failure complication: hypoxia and hypercapnia Qualified Code(s) : J96.01 - Acute respiratory failure with hypoxia; J96.02 - Acute respiratory failure with hypercapnia Comment: resolving (5) Epiglottic lesion Code(s): J38.7 - OTHER DISEASES OF LARYNX Status: Acute Comment: await biopsy results (6) Pyriform sinus mass Code(s): R22.0 - LOCALIZED SWELLING, MASS AND LUMP, HEAD Status: Acute Comment: await biopsy results (7) PNA (pneumonia) Code(s): J18.9 - PNEUMONIA, UNSPECIFIED ORGANISM Status: Acute Qualifiers: Pneumonia type: aspiration pneumonia Laterality: right Lung location: middle lobe of lung (8) Tobacco abuse Code(s): Z72.0 - TOBACCO USE Status: Chronic Comment: cigars (9) Hypotension Status: Resolved Qualifiers: Hypotension type: hypotension due to hypovolemia Qualified Code(s): I95.89 - Other hypotension; E86.1 - Hypovolemia (10) Dehydration, moderate Code(s): E86.0 - DEHYDRATION Status: Resolved (11) COPD (chronic obstructive pulmonary disease) Status: Suspected Qualifiers: COPD type: chronic bronchitis (12) Alcohol abuse Code(s): F10.10 - ALCOHOL ABUSE, UNCOMPLICATED Status: Chronic (13) Hemorrhagic shock Code(s): R57.8 - OTHER SHOCK Status: Resolved Comment: sec to profuse gi bleed (14) ELIZABETH (acute kidney injury) Code(s): N17.9 - ACUTE KIDNEY FAILURE, UNSPECIFIED Status: Acute - Plan is on trach collar -: await histopath -: nutrition per gen surgery adv (enteral or tpn) -: nebs, zosyn, protonix, steroids -: PT to mobilize as tolerated * . Review of Systems - Medications/Allergies Allergies/Adverse Reactions: Allergies Allergy/AdvReac Type Severity Reaction Status Date / Time No Known Allergies Allergy Verified 02/02/19 18:05 Medications: Current Medications Albuterol/Ipratropium (Duoneb) 3 ml NEB [id number] YUN Last Admin: 02/07/19 08:02 Dose: 3 ml Dextrose/Water (Dextrose 50%) 25 gm SLOW IVP PRN PRN PRN Reason: Hypoglycemia Enoxaparin Sodium (Lovenox) 40 mg SC 2100 [facility] Last Admin: 02/06/19 20:40 Dose: 40 mg Glucagon (Glucagon) 1 mg IM PRN PRN PRN Reason: Hypoglycemia Piperacillin Sod/Tazobactam (Sod 3.375 gm/ Sodium Chloride) 100 mls @ 200 mls/ hr IVPB 0300,0900,1500,2100 [facility] Last Admin: 02/07/19 11:12 Dose: 100 mls Thiamine HCl 100 mg/ Sodium (Chloride) 51 mls @ 100 mls/hr IVPB 0600,1800 [facility] Stop: 02/07/19 20:00 Last Admin: 02/07/19 06:22 Dose: 51 mls Potassium Chloride 40 meq/ (Sodium Chloride) 270 mls @ 135 mls/hr IVPB ASDIR PRN PRN Reason: FOR SERUM K+ 2.5 - 3.5 Potassium Chloride 40 meq/ (Device) 100 mls @ 50 mls/hr IVPB ASDIR PRN PRN Reason: FOR SERUM K+ 2.5 - 3.5 Magnesium Sulfate 1 gm/ Sodium (Chloride) 102 mls @ 102 mls/hr IV PRN PRN PRN Reason: MAG LEVEL 1.4 - 2.0 Last Admin: 02/06/19 11:11 Dose: 102 mls Potassium Phosphate 9 mmol/ (Sodium Chloride) 103 mls @ 25.75 mls/hr IVPB ASDIR PRN PRN Reason: Phosphate 1.0-1.8 Potassium Phosphate 12 mmol/ (Sodium Chloride) 254 mls @ 63.5 mls/hr IV ASDIR PRN PRN Reason: Serum phosphate 0.5-0.9 Potassium Phosphate 15 mmol/ (Sodium Chloride) 255 mls @ 63.75 mls/hr IV ASDIR PRN PRN Reason: Serum Phos < 0.5 Dextrose/Water (D5w) 1,000 mls @ 75 mls/hr IV .[id number] [facility] Last Admin: 02/07/19 02:57 Dose: 1,000 mls Dextrose/Water (D5w) 1,000 mls @ 0 mls/hr IV .Q0M PRN PRN Reason: Hypoglycemia Insulin Human Lispro (Humalog) 0 units SC .MILD SLIDING SCALE PRN PRN Reason: Mild Correctional Scale Magnesium Oxide (Magnesium Oxide) 400 mg PO BIDPRN PRN PRN Reason: FOR SERUM MAG 1.4 - 2.0 Methylprednisolone Sodium Succinate (Solu-Medrol) 40 mg IVP DAILY [facility] Last Admin: 02/07/19 11:12 Dose: 40 mg Miscellaneous Medication (Phos-Nak) 1 pkt PO TIDPRN PRN PRN Reason: FOR PHOS LEVEL 1.0 - 1.8 Morphine Sulfate (Morphine) 2 mg SLOW IVP Q1H PRN PRN Reason: BREAKTHROUGH PAIN/Agitation Stop: 03/05/19 16:46 Last Admin: 02/06/19 20:40 Dose: 2 mg Discontinue Previous Narcotic Pain Medications And Benzodiazepines 1 each FS .ONE [facility] Stop: 03/05/19 16:46 Ccu Electrolyte (Replacement Protocol) 0 each FS PRN PRN PRN Reason: FOR ELECTROLYTE REPLACEMENT Ondansetron HCl (Zofran) 4 mg IVP Q6H PRN PRN Reason: Nausea/Vomiting Last Admin: 02/03/19 00:28 Dose: 4 mg Pantoprazole Sodium (Protonix) 40 mg IVP Q12HR [facility] Last Admin: 02/07/19 11:08 Dose: 40 mg Sodium Chloride (Normal Saline Pf) 10 ml FS PRN PRN PRN Reason: RECONSTITUTION Last Admin: 02/06/19 20:41 Dose: 10 ml
[2019-02-07] MEDS: Enoxaparin Sodium 40 MG/0.4 ML SYRINGE SC SCH (20:06)
[2019-02-07] MEDS: Sodium Chloride 0.9% (PF) 10 ML VIAL FS PRN (20:07)
--- NOTE | 2019-02-07 23:26 | PRG ---
DATE OF SERVICE: 02/07/2019 SUBJECTIVE: Andre Benjamin is doing well. He is in ICU. He is off the ventilator. His MARIBETH drain is serosanguineous. His gastrostomy tube is to drainage. His NG tube has not drained much and I have asked the nurse to remove it. OBJECTIVE: VITAL SIGNS: Respiratory rate 18, blood pressure 137/61, heart rate 62. LUNGS: Clear to auscultation. CARDIAC: Regular rate and rhythm without murmur or gallop. ABDOMEN: Soft, nontender. Midline wound VAC in place. LABORATORY DATA: White count is 13, this morning hemoglobin 8. Basic metabolic profile normal. Sodium 150, potassium 3.9. ASSESSMENT AND PLAN: Doing well post laparotomy duodenostomy, over-sew hemorrhaging duodenal ulcer, probably could start tube feedings tomorrow per PEG tube. He could have a swallow study to evaluate swallowing ability. We will leave that to Dr. Gill. He could probably be transferred to the surgical floor tomorrow. Job ID: [id number]
[2019-02-08] MEDS: Piperacillin/Tazobactam 3.375 GM in Sodium Chloride 0.9% 100 ML IVPB SCH ×4 (03:42→20:40)
[2019-02-08] MEDS: Dextrose 5% in Water 1,000 ML IV SCH ×3 (03:43→20:41)
[2019-02-08 04:59] LABS: #Basophils 0.2 thou/uL (0.0-0.2); #Eosinphils 0.1 thou/uL (0.0-0.7); #Lymphocytes 2.4 thou/uL (1.20-3.40); #Monocytes 1.1 thou/uL (0.11-0.59); #Neutrophils 8.5 thou/uL (1.40-6.50); %Basophils 1.6 % (0.0-1.0); %Eosinophils 0.6 % (0.0-10.0); %Lymphocytes 19.6 % (21.0-51.0); %Monocytes 9.2 % (0.0-10.0); %Neutrophils 68.9 % (42.0-75.0); Hemoglobin 8.2 g/dL (14.0-18.0); Mean Corpuscular Hemoglobin 31.8 pg (27.0-31.0); Mean Corpuscular Volume 96.4 fL (78.0-98.0); Mean Platelet Volume 6.7 fL (7.4-10.4); Platelet Count 220 thou/uL (130-400); RBC Distribution Width 13.7 % (11.5-14.5); Red Blood Cell (RBC) Count 2.58 mill/uL (4.70-6.10); White Blood Cell (WBC) Count 12.3 thou/uL (4.8-10.8)
[2019-02-08 05:32] LABS: Anion Gap 10 mmol/L (10-20); BUN (Urea Nitrogen) 21 mg/dL (8.4-25.7); Calc. Creatinine Clearance 111 mL/min (70-130); Calcium 7.7 mg/dL (7.8-10.44); Carbon Dioxide 29 mmol/L (23-31); Chloride 111 mmol/L (98-107); Estimated GFR-MDRD 71; Glucose 96 mg/dL (80-115); Potassium 3.4 mmol/L (3.5-5.1); Sodium 147 mmol/L (136-145)
--- NOTE | 2019-02-08 08:23 | PRG ---
DATE OF SERVICE: 02/08/2019 SUBJECTIVE: Mr. Benjamin is off the ventilator on trach collar, appears to be stable. He has hard time communicating because of the tracheostomy. OBJECTIVE: VITAL SIGNS: His temperature is 98.3, pulse 56, and blood pressure 160/74. 24-hour intake 1899, output 2200. HEENT: Unremarkable. NECK: No JVD. Trach in good position. LUNGS: Clear anteriorly. CARDIAC: S1 and S2, regular. ABDOMEN: Midline wound with wound VAC looks to be healing well. PEG tube noted. EXTREMITIES: No clubbing, cyanosis, or edema. LABORATORY DATA: White blood cell count 12, hematocrit 24.9, and platelet count 220. Sodium 147, potassium 3.4, chloride 111, CO2 of 29, BUN 21, creatinine 1.0, and glucose 96. ASSESSMENT: 1. Status post gastrointestinal hemorrhage. 2. Status post acute respiratory failure. 3. 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 4. Status post massive gastrointestinal bleeding from duodenal ulcer, requiring massive transfusion protocol. PLAN: The patient is hemodynamically stable and can be transferred out to the surgical floor. We are awaiting pathology results. The patient will likely need oncologic disposition prior to discharge. Job ID: [id number]
[2019-02-08] MEDS: methylPREDNISolone Sod Succ 40 MG VIAL IVP SCH (09:09)
[2019-02-08] MEDS: Pantoprazole 40 MG VIAL IVP SCH ×2 (09:10→20:40)
--- NOTE | 2019-02-08 09:40 | PDOC.GSPN ---
Surgery Progress Note: Subj - Subjective Patient reports: no new complaints (Awake and Alert) Surgery Progress Note: Obj - Vital signs Vital signs: Vital Signs - Most Recent Temp Pulse Resp BP Pulse Ox 98.3 F 63 21 H 143/72 H 100 02/08/19 07:00 02/08/19 07:55 02/08/19 07:55 02/07/19 13:48 02/08/19 08:08 - Physical Exam General: no distress Cardiovascular: regular rate and rhythm Respiratory: clear to auscultation Abdomen: soft, appropriately tender Wound: wound vac (MARIBETH serosang) Surgery Progress Note: Results - Labs Result Diagrams: 02/08/19 04:40 02/08/19 04:40 Lab results: Laboratory Results - last 24 hr 02/06/19 02/07/19 02/08/19 17:00 23:17 04:40 WBC RBC Hgb Hct MCV MCH MCHC RDW Plt Count MPV Neutrophils % Neutrophils % (Manual) Lymphocytes % Monocytes % Eosinophils % Basophils % Neutrophils # Lymphocytes # Monocytes # Eosinophils # Basophils # Sodium 147 H Potassium 3.4 L Chloride 111 H Carbon Dioxide 29 Anion Gap 10 BUN 21 Creatinine 1.04 Estimated GFR (MDRD) 71 Glucose 96 POC Glucose 145 H 114 H Calcium 7.7 L 02/08/19 02/08/19 04:40 09:25 WBC 12.3 H RBC 2.58 L Hgb 8.2 L Hct 24.9 L MCV 96.4 MCH 31.8 H MCHC 33.0 RDW 13.7 Plt Count 220 MPV 6.7 L Neutrophils % 68.9 Neutrophils % (Manual) Not Reportable Lymphocytes % 19.6 L Monocytes % 9.2 Eosinophils % 0.6 Basophils % 1.6 H Neutrophils # 8.5 H Lymphocytes # 2.4 Monocytes # 1.1 H Eosinophils # 0.1 Basophils # 0.2 Sodium Potassium Chloride Carbon Dioxide Anion Gap BUN Creatinine Estimated GFR (MDRD) Glucose POC Glucose 84 Calcium Surgery Progress Note: A/P - Problem (1) Bleeding duodenal ulcer Current Visit: Yes Code(s): K26.4 - CHRONIC OR UNSPECIFIED DUODENAL ULCER WITH HEMORRHAGE Status: Acute - Plan Plan: Stable, MARIBETH non-bilious. -CT with oral contrast tomorrow to evaluate gastric outlet for leak prior to starting feeds
[2019-02-08 10:23] LABS: Actual Bicarbonate (HCO3a) 22.7 mEq/L (22-28); Analyzer IN Cardio OR; Base Excess (BEa) -5.8 mEq/L (-2.0 to +3.0); Calcium, Ionized 1.07 mmol/L (1.12-1.30); Carboxyhemoglobin (COHb) 0.1 gm% (0.0-3.0); Hemoglobin (Hb) 8.7 g/dL (14.0-18.0); O2 Tension (PaO2) 92.2 mmHg (> 80.0); Potassium - ABG Lab 4.04 mmol/L (3.70-5.30)
[2019-02-08 10:23] LABS: Actual Bicarbonate (HCO3a) 32.7 mEq/L (22-28); Analyzer IN Cardio OR; Base Excess (BEa) 6.5 mEq/L (-2.0 to +3.0); CO2 Tension 59.4 mmHg (35.0-45.0); Calcium, Ionized 1.11 mmol/L (1.12-1.30); Carboxyhemoglobin (COHb) 1.3 gm% (0.0-3.0); O2 Tension (PaO2) 276.5 mmHg (> 80.0); Potassium - ABG Lab 2.77 mmol/L (3.70-5.30); pH, Arterial 7.36 (7.35-7.45)
[2019-02-08 10:24] LABS: Actual Bicarbonate (HCO3a) 20.7 mEq/L (22-28); Analyzer IN Cardio OR; Base Excess (BEa) -7.7 mEq/L (-2.0 to +3.0); CO2 Tension 57.3 mmHg (35.0-45.0); Calcium, Ionized 1.08 mmol/L (1.12-1.30); Carboxyhemoglobin (COHb) 0.2 gm% (0.0-3.0); O2 Tension (PaO2) 80.9 mmHg (> 80.0); Potassium - ABG Lab 4.03 mmol/L (3.70-5.30)
[2019-02-08 10:24] LABS: Actual Bicarbonate (HCO3a) 27.9 mEq/L (22-28); Analyzer IN Cardio OR; Base Excess (BEa) 1.6 mEq/L (-2.0 to +3.0); CO2 Tension 55.2 mmHg (35.0-45.0); Calcium, Ionized 1.07 mmol/L (1.12-1.30); Hemoglobin (Hb) 6.4 g/dL (14.0-18.0); O2 Tension (PaO2) 379.2 mmHg (> 80.0); pH, Arterial 7.32 (7.35-7.45)
[2019-02-08 10:25] LABS: Analyzer IN Cardio OR; Base Excess (BEa) 2.5 mEq/L (-2.0 to +3.0); CO2 Tension 55.1 mmHg (35.0-45.0); Calcium, Ionized 0.85 mmol/L (1.12-1.30); Carboxyhemoglobin (COHb) 0.3 gm% (0.0-3.0); Hemoglobin (Hb) 9.2 g/dL (14.0-18.0); O2 Tension (PaO2) 402.9 mmHg (> 80.0); Potassium - ABG Lab 2.94 mmol/L (3.70-5.30); pH, Arterial 7.34 (7.35-7.45)
[2019-02-08 10:26] LABS: Actual Bicarbonate (HCO3a) 27.5 mEq/L (22-28); Analyzer IN Cardio OR; Base Excess (BEa) 0.9 mEq/L (-2.0 to +3.0); CO2 Tension 54.1 mmHg (35.0-45.0); Calcium, Ionized 1.04 mmol/L (1.12-1.30); Carboxyhemoglobin (COHb) 0.2 gm% (0.0-3.0); Hemoglobin (Hb) 9.8 g/dL (14.0-18.0); O2 Tension (PaO2) 327.4 mmHg (> 80.0); Potassium - ABG Lab 3.33 mmol/L (3.70-5.30); pH, Arterial 7.32 (7.35-7.45)
[2019-02-08 10:26] LABS: Actual Bicarbonate (HCO3a) 27.9 mEq/L (22-28); Analyzer IN Cardio OR; Base Excess (BEa) 1.9 mEq/L (-2.0 to +3.0); CO2 Tension 50.9 mmHg (35.0-45.0); Calcium, Ionized 0.83 mmol/L (1.12-1.30); Hemoglobin (Hb) 8.7 g/dL (14.0-18.0); O2 Tension (PaO2) 166.8 mmHg (> 80.0); Potassium - ABG Lab 4.08 mmol/L (3.70-5.30); pH, Arterial 7.36 (7.35-7.45)
[2019-02-08 10:26] LABS: Analyzer IN Cardio OR; Base Excess (BEa) 3.4 mEq/L (-2.0 to +3.0); CO2 Tension 57.1 mmHg (35.0-45.0); Calcium, Ionized 1.07 mmol/L (1.12-1.30); Carboxyhemoglobin (COHb) 0.3 gm% (0.0-3.0); Hemoglobin (Hb) 9.1 g/dL (14.0-18.0); O2 Tension (PaO2) 243.6 mmHg (> 80.0); Potassium - ABG Lab 3.58 mmol/L (3.70-5.30); pH, Arterial 7.34 (7.35-7.45)
[2019-02-08 10:27] LABS: Actual Bicarbonate (HCO3a) 28.8 mEq/L (22-28); Analyzer IN Cardio OR; Base Excess (BEa) 3.3 mEq/L (-2.0 to +3.0); CO2 Tension 49.3 mmHg (35.0-45.0); Calcium, Ionized 1.09 mmol/L (1.12-1.30); Carboxyhemoglobin (COHb) 1.1 gm% (0.0-3.0); O2 Tension (PaO2) 205.4 mmHg (> 80.0); Potassium - ABG Lab 3.67 mmol/L (3.70-5.30); pH, Arterial 7.39 (7.35-7.45)
[2019-02-08 10:36] LABS: Puncture Site ALINE
[2019-02-08 10:37] LABS: Puncture Site ALINE
[2019-02-08 10:37] LABS: Puncture Site ALINE
[2019-02-08 10:37] LABS: Puncture Site ALINE
[2019-02-08 10:38] LABS: Puncture Site ALINE
[2019-02-08 10:38] LABS: Puncture Site ALINE
[2019-02-08 10:38] LABS: Puncture Site ALINE
[2019-02-08 10:40] LABS: Puncture Site ALINE; pH, Arterial 7.18 (7.35-7.45)
[2019-02-08 10:41] LABS: Puncture Site ALINE; pH, Arterial 7.18 (7.35-7.45)
--- NOTE | 2019-02-08 14:26 | RAD ---
MODIFIED BARIUM SWALLOW IN PRESENCE OF SPEECH THERAPIST: HISTORY: Dysphagia, unspecified. Feeding difficulties. Patient has a tracheostomy tube. FINDINGS: There is laryngeal penetration and aspiration. Please see recommendations of the speech therapist for further management.
[2019-02-08] MEDS: Enoxaparin Sodium 40 MG/0.4 ML SYRINGE SC SCH (20:40)
--- NOTE | 2019-02-08 22:18 | PDOC.PN ---
- Subjective Encounter Start Date: 02/08/19 Encounter Start Time: 15:00 Patient does not want to write and he is difficult to lip read. Denies any major complaints. - Objective Resuscitation Status - Order Detail: 02/02/19 18:26 Resuscitation Status Routine Resuscitation Status: FULL: Full Resuscitation Vital Signs & Weight: Vital Signs (12 hours) Temp Pulse Resp BP Pulse Ox 02/08/19 16:27 59 L 23 H 97 02/08/19 16:00 98.5 F 68 23 H 108/63 94 L 02/08/19 15:00 98 F 02/08/19 12:00 98.4 F 02/08/19 11:02 59 L 21 H 96 Weight Admit Weight 225 lb 4.8 oz Weight 247 lb 2 oz Most Recent Monitor Data Heart Rate from ECG 58 NIBP 158/84 NIBP BP-Mean 108 Respiration from ECG 23 SpO2 94 I&O: 02/07/19 02/08/19 02/09/19 06:59 06:59 06:59 Intake Total 2417.2 1899 899 Output Total 2500 2200 2261 Balance -82.8 -301 -1362 Result Diagrams: 02/08/19 04:40 02/08/19 04:40 Additional Labs: Accuchecks 02/08/19 02/08/19 02/07/19 15:36 09:25 23:17 POC Glucose 60 L 84 114 H 02/06/19 17:00 POC Glucose 145 H Phys Exam - Physical Examination Constitutional: NAD Trach Respiratory: no wheezing Scattered modest rales. Cardiovascular: RRR, no significant murmur, no rub Gastrointestinal: soft, non-tender, no distention, positive bowel sounds Musculoskeletal: no edema Psychiatric: normal affect, A&O x 3 Deviation from normal: Chronic dermatitis BLE's Dx/Plan (1) ELIZABETH (acute kidney injury) Code(s): N17.9 - ACUTE KIDNEY FAILURE, UNSPECIFIED Status: Acute (2) Acute blood loss anemia Code(s): D62 - ACUTE POSTHEMORRHAGIC ANEMIA Status: Acute Comment: recieved MTP (total of 15u prbc, 3 liq plasma, 6 ffp, 2 platelet and 1 cryo were given in total this admission) (3) Acute respiratory failure Code(s): J96.00 - ACUTE RESPIRATORY FAILURE, UNSP W HYPOXIA OR HYPERCAPNIA Status: Acute Qualifiers: Respiratory failure complication: hypoxia and hypercapnia Qualified Code(s) : J96.01 - Acute respiratory failure with hypoxia; J96.02 - Acute respiratory failure with hypercapnia Comment: resolving (4) Bleeding duodenal ulcer Code(s): K26.4 - CHRONIC OR UNSPECIFIED DUODENAL ULCER WITH HEMORRHAGE Status : Acute (5) Epiglottic lesion Code(s): J38.7 - OTHER DISEASES OF LARYNX Status: Acute Comment: await biopsy results (6) GI bleed Code(s): K92.2 - GASTROINTESTINAL HEMORRHAGE, UNSPECIFIED Status: Acute Qualifiers: GI bleed type/associated pathology: duodenal ulcer Qualified Code(s): K26.4 - Chronic or unspecified duodenal ulcer with hemorrhage Comment: s/p gastrotomy and control of bleeding (7) PNA (pneumonia) Code(s): J18.9 - PNEUMONIA, UNSPECIFIED ORGANISM Status: Acute Qualifiers: Pneumonia type: aspiration pneumonia Laterality: right Lung location: middle lobe of lung (8) Pyriform sinus mass Code(s): R22.0 - LOCALIZED SWELLING, MASS AND LUMP, HEAD Status: Acute Comment: await biopsy results (9) Status post tracheostomy Code(s): Z93.0 - TRACHEOSTOMY STATUS Status: Acute Comment: sec to supraglottic mass for airway (10) Alcohol abuse Code(s): F10.10 - ALCOHOL ABUSE, UNCOMPLICATED Status: Chronic (11) Tobacco abuse Code(s): Z72.0 - TOBACCO USE Status: Chronic Comment: cigars (12) COPD (chronic obstructive pulmonary disease) Status: Suspected Qualifiers: COPD type: chronic bronchitis (13) Dehydration, moderate Code(s): E86.0 - DEHYDRATION Status: Resolved (14) Hemorrhagic shock Code(s): R57.8 - OTHER SHOCK Status: Resolved Comment: sec to profuse gi bleed (15) Hypotension Status: Resolved Qualifiers: Hypotension type: hypotension due to hypovolemia Qualified Code(s): I95.89 - Other hypotension; E86.1 - Hypovolemia - Plan * Doing remarkably well considering his overall course thus far. * Plan is for CT with contrast tomorrow to ensure there is no leak from the GI tract. * If ok, start feeds. * Hbg stable. * Need path on lesion. * Surg, Pulm following.
[2019-02-09] MEDS: Piperacillin/Tazobactam 3.375 GM in Sodium Chloride 0.9% 100 ML IVPB SCH ×4 (04:23→21:00)
[2019-02-09 06:27] LABS: #Basophils 0.1 thou/uL (0.0-0.2); #Eosinphils 0.2 thou/uL (0.0-0.7); #Lymphocytes 2.3 thou/uL (1.20-3.40); #Monocytes 1.2 thou/uL (0.11-0.59); #Neutrophils 9.3 thou/uL (1.40-6.50); %Basophils 0.5 % (0.0-1.0); %Eosinophils 1.4 % (0.0-10.0); %Lymphocytes 17.5 % (21.0-51.0); %Monocytes 9.4 % (0.0-10.0); %Neutrophils 71.2 % (42.0-75.0); Hemoglobin 8.8 g/dL (14.0-18.0); Mean Corpuscular HGB CONC 33.1 g/dL (32.0-36.0); Mean Corpuscular Hemoglobin 31.7 pg (27.0-31.0); Mean Corpuscular Volume 95.9 fL (78.0-98.0); Mean Platelet Volume 7.1 fL (7.4-10.4); Platelet Count 286 thou/uL (130-400); RBC Distribution Width 13.9 % (11.5-14.5); Red Blood Cell (RBC) Count 2.77 mill/uL (4.70-6.10); White Blood Cell (WBC) Count 13.1 thou/uL (4.8-10.8)
[2019-02-09 06:50] LABS: Anion Gap 9 mmol/L (10-20); BUN (Urea Nitrogen) 18 mg/dL (8.4-25.7); Calc. Creatinine Clearance 136 mL/min (70-130); Carbon Dioxide 30 mmol/L (23-31); Chloride 107 mmol/L (98-107); Estimated GFR-MDRD 90; Glucose 95 mg/dL (80-115); Sodium 143 mmol/L (136-145)
[2019-02-09] MEDS: Pantoprazole 40 MG VIAL IVP SCH ×2 (09:20→21:00)
--- NOTE | 2019-02-09 09:32 | OP ---
DATE OF PROCEDURE: 02/03/2019 PREOPERATIVE DIAGNOSES: 1. Obstructive laryngeal cancer. 2. Upper airway obstruction to respiratory distress. POSTOPERATIVE DIAGNOSES: 1. Obstructive supraglottic, laryngeal, and piriform sinus tumor. 2. Respiratory distress. 3. Hypovolemic shock. 4. Intraabdominal hemorrhage. 5. Bleeding duodenal and gastric ulcers. PROCEDURE IN DETAIL: After consent was obtained, the patient was identified and brought to the operating room and placed on the operating table in supine position. General endotracheal anesthesia was obtained with a small #6 tube. The patient was positioned for a tracheostomy. Neck was extended and topical anatomy was delineated and a small incision was marked in the lower neck in the natural skin crease close to the 1st and 2nd tracheal ring. Decision was made and carried down through the skin and subcutaneous tissue after the patient was prepped and draped in a sterile fashion. The strap muscles were identified and divided in midline. The thyroid isthmus was then divided and ligated and each side was ligated. This then exposed the trachea and the cricoid was grasped with a cricoid hook and we made an incision in the 1st intratracheal ring with care not to penetrate the lumen of the trachea. We then decreased the oxygen and made the incision into the trachea with 11 blade. We then made an inferiorly-based flap by cutting the 2nd tracheal ring laterally with sharp scissors. We then put a suture through the skin and suture secured that to the cartilage down the first tracheal ring and retracted that. The trach material spreader was then used to open the lumen of the tracheostomy and a #8 trach tube was easily passed into the lumen and then suture secured to the skin. A strap was then placed. Once the airway was in place, we turned our attention to the oropharynx. A laryngoscope was placed after the patient was positioned for laryngoscopy and copious amounts of gastric secretions and old blood was found flowing from the stomach to the oral cavity by way of the esophageal inlet, which obscured the view. Ultimately, a nasogastric tube was placed, which helped to diminish the flow. The patient's blood pressure at this point was noted to become quite well and the anesthesia providers were in the presence of resuscitating the patient maintaining his blood levels and the blood products were used. At this point, we proceeded with the laryngoscopy while the patient was stable and visualized the tumor, which involved much of the right epiglottis, arytenoid and seemed to extend into the piriform sinus. Visualization was markedly diminished due to the constant flow of old dark gastric bloody secretions during the procedure. After the biopsy was obtained, we repositioned the patient and the anesthesia and critical care team proceeded with resuscitative measures. Ultimately, the patient's care was turned over to the GI Service and then ultimately the general surgeons, who identified the actively bleeding duodenal ulcer completely unrelated to the procedure. The patient was ultimately taken to the intensive care unit, where he remained in critical condition. Job ID: [id number]
[2019-02-09] MEDS: Dextrose 5% in Water 1,000 ML IV SCH (09:36)
--- NOTE | 2019-02-09 10:01 | PRG ---
DATE OF SERVICE: 02/09/2019 SUBJECTIVE: The patient is doing reasonably well. He can speak with a Passy Hermon speaking valve on. He has no complaints. OBJECTIVE: VITAL SIGNS: Temperature 98.1, pulse 54, respirations 20, O2 saturation 100%, blood pressure 160/63. HEENT: Unremarkable. NECK: Trach in good position. LUNGS: Clear anteriorly. CARDIAC: S1 and S2. Regular. ABDOMEN: Soft and nontender. Surgical dressing noted. PEG tube noted. EXTREMITIES: No edema. LABORATORY DATA: White blood cell count 13, hematocrit 26.6, platelet count 286. Sodium 143, potassium 3.0, chloride 107, CO2 of 30, BUN 18, creatinine 0.8, glucose 95. ASSESSMENT: 1. Laryngeal mass, likely cancerous - awaiting pathology results. 2. Status post cardiopulmonary arrest in OR. 3. Status post duodenal bleed requiring operative repair. 4. Probable underlying chronic obstructive pulmonary disease. PLAN: 1. We would finish out 7 days of antibiotics. 2. I think we can go ahead and stop the steroids. 3. Await pathology results for further disposition. Job ID: [id number]
--- NOTE | 2019-02-09 10:53 | PDOC.GSPN ---
Surgery Progress Note: Subj - Subjective Narrative: Aspirated on modified barium swallow Surgery Progress Note: Obj - Vital signs Vital signs: Vital Signs - Most Recent Temp Pulse Resp BP Pulse Ox 98.1 F 62 20 160/63 H 96 02/09/19 07:18 02/09/19 10:47 02/09/19 10:47 02/09/19 07:18 02/09/19 10:47 - Physical Exam General: no distress Cardiovascular: regular rate and rhythm Respiratory: breath sounds present Abdomen: soft, appropriately tender Wound: wound vac Surgery Progress Note: Results - Labs Result Diagrams: 02/09/19 06:00 02/09/19 06:00 Lab results: Laboratory Results - last 24 hr 02/09/19 02/09/19 02/09/19 00:25 06:00 06:00 WBC 13.1 H RBC 2.77 L Hgb 8.8 L Hct 26.6 L MCV 95.9 MCH 31.7 H MCHC 33.1 RDW 13.9 Plt Count 286 MPV 7.1 L Neutrophils % 71.2 Lymphocytes % 17.5 L Monocytes % 9.4 Eosinophils % 1.4 Basophils % 0.5 Neutrophils # 9.3 H Lymphocytes # 2.3 Monocytes # 1.2 H Eosinophils # 0.2 Basophils # 0.1 Sodium 143 Potassium 3.0 L Chloride 107 Carbon Dioxide 30 Anion Gap 9 L BUN 18 Creatinine 0.85 Estimated GFR (MDRD) 90 Glucose 95 POC Glucose 77 Calcium 8.0 02/09/19 06:02 WBC RBC Hgb Hct MCV MCH MCHC RDW Plt Count MPV Neutrophils % Lymphocytes % Monocytes % Eosinophils % Basophils % Neutrophils # Lymphocytes # Monocytes # Eosinophils # Basophils # Sodium Potassium Chloride Carbon Dioxide Anion Gap BUN Creatinine Estimated GFR (MDRD) Glucose POC Glucose 89 Calcium Surgery Progress Note: A/P - Problem (1) Bleeding duodenal ulcer Current Visit: Yes Code(s): K26.4 - CHRONIC OR UNSPECIFIED DUODENAL ULCER WITH HEMORRHAGE Status: Acute - Plan Plan: CT with G tube contrast today to evaluate gastric outlet then begin tube feeds.
--- NOTE | 2019-02-09 14:33 | RAD ---
1 VIEW ABDOMEN: Date: 02/09/19 HISTORY: Scan required prior to CT. FINDINGS: There appears to be a drainage catheter projecting over the left upper quadrant. Suture chain and kyra gical clips are noted. Bowel gas pattern is nonspecific. Percutaneous gastric feeding tube is noted. IMPRESSION: Drainage catheter terminating in left upper quadrant. POS: ESTEFANIA
--- NOTE | 2019-02-09 15:24 | CT ---
CT ABDOMEN AND PELVIS WITH CONTRAST: COMPARISON: CT abdomen/pelvis 11/21/2005. HISTORY: Status post pyloroplasty. Evaluate for leak. TECHNIQUE: Multiple contiguous axial images were obtained in a CT of the abdomen and pelvis with contrast. Cont rast was given in the patient's indwelling gastrostomy tube. Coronal reformats were performed. FINDINGS: Contrast is seen in the stomach and gastric tube. No leakage from the stomach is seen. This contras t has passed to the level of the 2nd portion of the duodenum. A surgical drain is seen in the right upper quadrant of the abdomen. A minimal amount of free fluid is in the pelvis. A small amount of f ree air is seen in the abdomen. There are scattered diverticula in the colon. The small bowel is unremarkable. Atherosclerotic calc ifications are seen in the aorta. No abdominal or pelvic lymphadenopathy are seen. The kidneys, right adrenal gland, spleen, and pancreas are unremarkable. There is a stable 1.8 cm ma ss in the left adrenal gland. Degenerative changes are seen in the spine. There are small bilateral pleural effusions and adjacen t atelectasis. IMPRESSION: 1. No evidence of leak of contrast from the patient's stomach. 2. Diverticulosis. 3. Stable left adrenal mass likely represents a fat-containing adrenal adenoma. POS: CHELSEA
--- NOTE | 2019-02-09 16:12 | PDOC.PN ---
- Subjective Encounter Start Date: 02/09/19 Encounter Start Time: 12:00 Doing well today. No complaints. Wants to be able to get outside for fresh air. - Objective Resuscitation Status - Order Detail: 02/02/19 18:26 Resuscitation Status Routine Resuscitation Status: FULL: Full Resuscitation Vital Signs & Weight: Vital Signs (12 hours) Temp Pulse Resp BP BP Pulse Ox 02/09/19 15:02 104/69 02/09/19 14:42 74 24 H 95 02/09/19 14:30 103/67 02/09/19 13:05 98.4 F 56 L 20 177/84 H 93 L 02/09/19 10:47 62 20 96 02/09/19 08:00 100 02/09/19 07:18 98.1 F 54 L 20 160/63 H 100 Weight Admit Weight 225 lb 4.8 oz Weight 247 lb 2 oz Most Recent Monitor Data Heart Rate from ECG 58 NIBP 158/84 NIBP BP-Mean 108 Respiration from ECG 23 SpO2 94 I&O: 02/08/19 02/09/19 02/10/19 06:59 06:59 06:59 Intake Total 1899 899 950 Output Total 2200 2261 1370 Balance -301 -1362 -420 Result Diagrams: 02/09/19 06:00 02/09/19 06:00 Additional Labs: Accuchecks 02/09/19 02/09/19 02/09/19 14:30 11:12 06:02 POC Glucose 98 69 L 89 02/09/19 00:25 POC Glucose 77 Phys Exam - Physical Examination Constitutional: NAD Up in jori-chair by the window. HEENT: PERRLA, moist MMs, oral pharynx no lesions Neck: no nodes, no JVD, supple, full ROM Trach Respiratory: no wheezing, no rales, no rhonchi, clear to auscultation bilateral Cardiovascular: RRR, no significant murmur, no rub Gastrointestinal: soft, non-tender, no distention, positive bowel sounds Neurological: non-focal, normal sensation, moves all 4 limbs Psychiatric: normal affect, A&O x 3 Skin: no rash, normal turgor, cap refill <2 seconds Dx/Plan (1) Acute respiratory failure Code(s): J96.00 - ACUTE RESPIRATORY FAILURE, UNSP W HYPOXIA OR HYPERCAPNIA Status: Acute Qualifiers: Respiratory failure complication: hypoxia and hypercapnia Qualified Code(s) : J96.01 - Acute respiratory failure with hypoxia; J96.02 - Acute respiratory failure with hypercapnia Comment: resolving (2) ELIZABETH (acute kidney injury) Code(s): N17.9 - ACUTE KIDNEY FAILURE, UNSPECIFIED Status: Acute (3) Bleeding duodenal ulcer Code(s): K26.4 - CHRONIC OR UNSPECIFIED DUODENAL ULCER WITH HEMORRHAGE Status : Acute (4) Acute blood loss anemia Code(s): D62 - ACUTE POSTHEMORRHAGIC ANEMIA Status: Acute Comment: recieved MTP (total of 15u prbc, 3 liq plasma, 6 ffp, 2 platelet and 1 cryo were given in total this admission) (5) Epiglottic lesion Code(s): J38.7 - OTHER DISEASES OF LARYNX Status: Acute Comment: await biopsy results (6) GI bleed Code(s): K92.2 - GASTROINTESTINAL HEMORRHAGE, UNSPECIFIED Status: Acute Qualifiers: GI bleed type/associated pathology: duodenal ulcer Qualified Code(s): K26.4 - Chronic or unspecified duodenal ulcer with hemorrhage Comment: s/p gastrotomy and control of bleeding (7) PNA (pneumonia) Code(s): J18.9 - PNEUMONIA, UNSPECIFIED ORGANISM Status: Acute Qualifiers: Pneumonia type: aspiration pneumonia Laterality: right Lung location: middle lobe of lung (8) Status post tracheostomy Code(s): Z93.0 - TRACHEOSTOMY STATUS Status: Acute Comment: sec to supraglottic mass for airway (9) Alcohol abuse Code(s): F10.10 - ALCOHOL ABUSE, UNCOMPLICATED Status: Chronic (10) Tobacco abuse Code(s): Z72.0 - TOBACCO USE Status: Chronic Comment: cigars (11) COPD (chronic obstructive pulmonary disease) Status: Suspected Qualifiers: COPD type: chronic bronchitis (12) Dehydration, moderate Code(s): E86.0 - DEHYDRATION Status: Resolved (13) Hemorrhagic shock Code(s): R57.8 - OTHER SHOCK Status: Resolved Comment: sec to profuse gi bleed (14) Hypotension Status: Resolved Qualifiers: Hypotension type: hypotension due to hypovolemia Qualified Code(s): I95.89 - Other hypotension; E86.1 - Hypovolemia (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 * Patient is not ready for therapy yet, but will go ahead and get Oncology on board to discuss treatment plan. * CT today see if the ulcer repair is leaking. If not, start PEG feeds. * Hemoglobin remaining stable. * Tolerating trach very well. * Discussed the need for ongoing treatment. * Will need some case management help as he will not likely be able to function well at home now with trach and PEG.
[2019-02-09] MEDS ORDERED: Potassium Chloride 40 MEQ in Premix Bag 1 BAG IVPB SCH (16:30)
[2019-02-09] MEDS: Dextrose 50% Abboject 50 ML SYRINGE SLOW IVP PRN (18:12)
[2019-02-09] MEDS ORDERED: Dextrose 50% Abboject 50 ML SYRINGE SLOW IVP SCH (19:00)
[2019-02-09] MEDS: Enoxaparin Sodium 40 MG/0.4 ML SYRINGE SC SCH (20:59)
[2019-02-10] MEDS: Dextrose 50% Abboject 50 ML SYRINGE SLOW IVP PRN (01:18)
[2019-02-10] MEDS: Dextrose 10% in Water 1,000 ML IV SCH ×2 (01:31→12:28)
[2019-02-10] MEDS: Piperacillin/Tazobactam 3.375 GM in Sodium Chloride 0.9% 100 ML IVPB SCH (03:09)
[2019-02-10 03:36] LABS: #Eosinphils 0.2 thou/uL (0.0-0.7); #Lymphocytes 2.2 thou/uL (1.20-3.40); #Monocytes 0.9 thou/uL (0.11-0.59); #Neutrophils 7.2 thou/uL (1.40-6.50); %Basophils 0.4 % (0.0-1.0); %Eosinophils 2.1 % (0.0-10.0); %Monocytes 8.6 % (0.0-10.0); %Neutrophils 67.9 % (42.0-75.0); Hemoglobin 9.2 g/dL (14.0-18.0); Mean Corpuscular HGB CONC 32.7 g/dL (32.0-36.0); Mean Corpuscular Hemoglobin 31.1 pg (27.0-31.0); Platelet Count 317 thou/uL (130-400); RBC Distribution Width 14.3 % (11.5-14.5); Red Blood Cell (RBC) Count 2.95 mill/uL (4.70-6.10); White Blood Cell (WBC) Count 10.6 thou/uL (4.8-10.8)
[2019-02-10 03:57] LABS: Anion Gap 10 mmol/L (10-20); BUN (Urea Nitrogen) 15 mg/dL (8.4-25.7); Calc. Creatinine Clearance 136 mL/min (70-130); Calcium 7.9 mg/dL (7.8-10.44); Carbon Dioxide 28 mmol/L (23-31); Chloride 106 mmol/L (98-107); Estimated GFR-MDRD 90; Glucose 131 mg/dL (80-115); Magnesium 1.6 mg/dL (1.6-2.6); Phosphorus 2.4 mg/dL (2.3-4.7); Sodium 141 mmol/L (136-145)
[2019-02-10 04:03] LABS: Potassium 2.7 mmol/L (3.5-5.1)
[2019-02-10] MEDS ORDERED: Potassium Chloride 40 MEQ in Premix Bag 1 BAG IVPB SCH (04:45)
[2019-02-10] MEDS: Pantoprazole 40 MG VIAL IVP SCH ×2 (09:23→21:58)
--- NOTE | 2019-02-10 10:08 | PRG ---
DATE OF SERVICE: 02/10/2019 SUBJECTIVE: Mr. Benjamin is complaining of sore left ear. He has also has a sore throat. OBJECTIVE: VITAL SIGNS: On exam, his temperature is 99.1, pulse 55, respirations 20, O2 saturation 99% on room air, blood pressure 107/71. HEENT: He has an excoriation in his left auricle. NECK: Tracheostomy midline. Able to phonate with Passy Allyssa valve in place. CARDIOVASCULAR: S1 and S2, regular. LUNGS: Fairly clear anteriorly. ABDOMEN: Midline surgical dressing noted. PEG tube noted. EXTREMITIES: No edema. LABORATORY DATA: White count 10.6, hematocrit 28, platelet count 317. Sodium 141, potassium 2.7, chloride 106, CO2 of 28, BUN 15, creatinine 0.8, glucose 131. ASSESSMENT: 1. Squamous cell carcinoma of the larynx. 2. Status post tracheostomy placement. 3. Status post repair of bleeding duodenal ulcer. PLAN: The patient has had 7 days of antibiotics, so I think we can go ahead and stop those. He was given some potassium this morning for his hypokalemia. His steroids have been stopped. Main issue now is cancer treatment and progressing to the point where he can be fed through his tube. I do think he will need to have his tracheostomy changed to a cuffless trach before he is discharged. At that time, he should be coordinated with Dr. Escobar. Job ID: [id number]
--- NOTE | 2019-02-10 13:15 | PDOC.GSPN ---
Surgery Progress Note: Subj - Subjective Patient reports: no new complaints Surgery Progress Note: Obj - Vital signs Vital signs: Vital Signs - Most Recent Temp Pulse Resp BP Pulse Ox 99.2 F 62 20 90/53 L 97 02/10/19 11:57 02/10/19 11:57 02/10/19 11:57 02/10/19 11:57 02/10/19 11:57 - Physical Exam General: no distress Abdomen: soft, non tender Wound: wound vac (MARIBETH sero sanguenous) Surgery Progress Note: Results - Labs Result Diagrams: 02/10/19 03:26 02/10/19 03:26 Lab results: Laboratory Results - last 24 hr 02/10/19 02/10/19 02/10/19 02:10 02:27 03:06 WBC RBC Hgb Hct MCV MCH MCHC RDW Plt Count MPV Neutrophils % Lymphocytes % Monocytes % Eosinophils % Basophils % Neutrophils # Lymphocytes # Monocytes # Eosinophils # Basophils # Sodium Potassium Chloride Carbon Dioxide Anion Gap BUN Creatinine Estimated GFR (MDRD) Glucose POC Glucose 53 L* 154 H 138 H Calcium Phosphorus Magnesium 02/10/19 02/10/19 02/10/19 03:26 03:26 04:37 WBC 10.6 RBC 2.95 L Hgb 9.2 L Hct 28.0 L MCV 95.0 MCH 31.1 H MCHC 32.7 RDW 14.3 Plt Count 317 MPV 7.0 L Neutrophils % 67.9 Lymphocytes % 21.0 Monocytes % 8.6 Eosinophils % 2.1 Basophils % 0.4 Neutrophils # 7.2 H Lymphocytes # 2.2 Monocytes # 0.9 H Eosinophils # 0.2 Basophils # 0.0 Sodium 141 Potassium 2.7 L* Chloride 106 Carbon Dioxide 28 Anion Gap 10 BUN 15 Creatinine 0.85 Estimated GFR (MDRD) 90 Glucose 131 H POC Glucose 114 H Calcium 7.9 Phosphorus 2.4 Magnesium 1.6 02/10/19 02/10/19 02/10/19 06:50 08:06 10:11 WBC RBC Hgb Hct MCV MCH MCHC RDW Plt Count MPV Neutrophils % Lymphocytes % Monocytes % Eosinophils % Basophils % Neutrophils # Lymphocytes # Monocytes # Eosinophils # Basophils # Sodium Potassium Chloride Carbon Dioxide Anion Gap BUN Creatinine Estimated GFR (MDRD) Glucose POC Glucose 118 H 119 H 110 Calcium Phosphorus Magnesium 02/10/19 12:27 WBC RBC Hgb Hct MCV MCH MCHC RDW Plt Count MPV Neutrophils % Lymphocytes % Monocytes % Eosinophils % Basophils % Neutrophils # Lymphocytes # Monocytes # Eosinophils # Basophils # Sodium Potassium Chloride Carbon Dioxide Anion Gap BUN Creatinine Estimated GFR (MDRD) Glucose POC Glucose 87 Calcium Phosphorus Magnesium Surgery Progress Note: A/P - Problem (1) Bleeding duodenal ulcer Current Visit: Yes Code(s): K26.4 - CHRONIC OR UNSPECIFIED DUODENAL ULCER WITH HEMORRHAGE Status: Acute - Plan Plan: CT shows no leak in duodenum -Start TF -Leave drain in until tolerating TF
--- NOTE | 2019-02-10 13:20 | CON ---
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 HISTORY OF PRESENT ILLNESS: Mr. Benjamin is a 68-year-old gentleman with past medical history of tobacco and alcohol use, who presented to emergency room on February 02 with complaints of shortness of breath, odynophagia, and hoarseness. He had a CT angio, which showed no pulmonary embolus, but showed possible aspiration pneumonia. ENT was consulted for the patient's dysphagia. During the upper endoscopy, the patient had a GI hemorrhage requiring 15 units of blood. He was stabilized, biopsies were obtained of a mass in the piriformis sinus. 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 The patient required a laparotomy with G-tube placement. 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 He has recovered over the last several days from his hypovolemic shock and we were asked to see the patient regarding recommendations for his cancer. The patient is unable to speak, but does use a board for communication. He denies any complaints at this time. H and P was obtained from review of chart and speaking with patient. PAST MEDICAL HISTORY: None. PAST SURGICAL HISTORY: Tonsillectomy and appendectomy, laparotomy for GI hemorrhage, trach placement for obstructive laryngeal carcinoma. ALLERGIES: NONE. CURRENT MEDICATIONS: 1. Lovenox 40 mg daily. 2. Morphine p.r.n. 3. Protonix 40 mg b.i.d. FAMILY HISTORY: No known history of cancer. SOCIAL HISTORY: Drinks eight beers daily. He has 50 pack-year of smoking. Lives alone. No kids. REVIEW OF SYSTEMS: A 10-point review of systems is negative except for noted in HPI. PHYSICAL EXAMINATION: VITAL SIGNS: Temperature 99.2, pulse is 62, respiratory rate 20, BP is 90/53, and he is 97% on trach collar. GENERAL: This is a well-developed, well-nourished male, in no acute distress. HEENT: Normocephalic and atraumatic. Pupils are equal and reactive to light. NECK: Supple with a trach in midline. CV: Regular rate and rhythm. LUNGS: Clear. ABDOMEN: Mildly tender. Bowel sounds are positive. He has a midline wound VAC. A right MARIBETH drain and a left feeding tube to drainage. EXTREMITIES: No clubbing, cyanosis, or edema. : Browning catheter in place with clear yellow urine. SKIN: No rash. HEMATOLOGIC: No petechiae or purpura. NEUROLOGIC: Nonfocal. PERTINENT LABS AND X-RAYS: Current WBCs 10.6, hemoglobin 9.2, hematocrit 28.0, and platelet count is 317,000. He has 67% neutrophils and 21% lymphocytes. Sodium is 141, potassium is 2.7, chloride is 106, CO2 is 28, BUN is 15, creatinine is 0.85, calcium is 7.9, total bilirubin is 0.9, AST is 34, ALT is 31, alkaline phosphatase is 40, serum total protein is 4.5, and albumin is 2.4. ASSESSMENT: 1. 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 2. Massive gastrointestinal hemorrhage, resolved. 3. Hypovolemic shock, resolved. 4. Tracheostomy placement for obstructive mass. DISCUSSION: The patient will need treatment with chemotherapy and radiation once he has recovered from his hospitalization. Ideally, his abdominal wound would be healed and he would be tolerating tube feeds. I believe he is going to rehab once he has slightly improved to regain his strength and I will be happy to follow up with him in the outpatient setting. Case was discussed with Dr. Lomeli. Thank you for the consult. Job ID: [id number]
--- NOTE | 2019-02-10 15:23 | PDOC.PN ---
- Subjective Encounter Start Date: 02/10/19 Encounter Start Time: 11:20 Doing very well. Does not like the PM valve because he feels like it is harder for him to breathe with it on. - Objective Resuscitation Status - Order Detail: 02/02/19 18:26 Resuscitation Status Routine Resuscitation Status: FULL: Full Resuscitation Vital Signs & Weight: Vital Signs (12 hours) Temp Pulse Resp BP BP Pulse Ox 02/10/19 14:10 52 L 20 100 02/10/19 11:57 99.2 F 62 20 90/53 L 97 02/10/19 10:28 55 L 22 H 100 02/10/19 07:55 99 02/10/19 07:47 99.1 F 55 L 20 107/71 99 02/10/19 07:04 57 L 20 100 02/10/19 04:04 98.4 F 55 L 16 94/57 L 98 Weight Admit Weight 225 lb 4.8 oz Weight 247 lb 2 oz Most Recent Monitor Data Heart Rate from ECG 58 NIBP 158/84 NIBP BP-Mean 108 Respiration from ECG 23 SpO2 94 I&O: 02/09/19 02/10/19 02/11/19 06:59 06:59 06:59 Intake Total 899 3350 Output Total 2261 7739 1209 Balance -6489 -1969 -8595 Result Diagrams: 02/10/19 03:26 02/10/19 03:26 Additional Labs: Accuchecks 02/10/19 02/10/19 02/10/19 14:14 12:27 10:11 POC Glucose 127 H 87 110 02/10/19 02/10/19 02/10/19 08:06 06:50 04:37 POC Glucose 119 H 118 H 114 H 02/10/19 02/10/19 02/10/19 03:06 02:27 02:10 POC Glucose 138 H 154 H 53 L* 02/10/19 02/09/19 00:34 18:49 POC Glucose 69 L 117 H Phys Exam - Physical Examination Constitutional: NAD Up in chair. Trach Respiratory: no wheezing, no rales, wheezing present some rhonchi in upper airway. Cardiovascular: RRR, no significant murmur, no rub Gastrointestinal: soft, non-tender, no distention, positive bowel sounds Musculoskeletal: no edema Psychiatric: normal affect, A&O x 3 Dx/Plan (1) Acute respiratory failure Code(s): J96.00 - ACUTE RESPIRATORY FAILURE, UNSP W HYPOXIA OR HYPERCAPNIA Status: Acute Qualifiers: Respiratory failure complication: hypoxia and hypercapnia Qualified Code(s) : J96.01 - Acute respiratory failure with hypoxia; J96.02 - Acute respiratory failure with hypercapnia Comment: resolving (2) ELIZABETH (acute kidney injury) Code(s): N17.9 - ACUTE KIDNEY FAILURE, UNSPECIFIED Status: Acute (3) Bleeding duodenal ulcer Code(s): K26.4 - CHRONIC OR UNSPECIFIED DUODENAL ULCER WITH HEMORRHAGE Status : Acute (4) Acute blood loss anemia Code(s): D62 - ACUTE POSTHEMORRHAGIC ANEMIA Status: Acute Comment: recieved MTP (total of 15u prbc, 3 liq plasma, 6 ffp, 2 platelet and 1 cryo were given in total this admission) (5) GI bleed Code(s): K92.2 - GASTROINTESTINAL HEMORRHAGE, UNSPECIFIED Status: Acute Qualifiers: GI bleed type/associated pathology: duodenal ulcer Qualified Code(s): K26.4 - Chronic or unspecified duodenal ulcer with hemorrhage Comment: s/p gastrotomy and control of bleeding (6) PNA (pneumonia) Code(s): J18.9 - PNEUMONIA, UNSPECIFIED ORGANISM Status: Acute Qualifiers: Pneumonia type: aspiration pneumonia Laterality: right Lung location: middle lobe of lung (7) Status post tracheostomy Code(s): Z93.0 - TRACHEOSTOMY STATUS Status: Acute Comment: sec to supraglottic mass for airway (8) Alcohol abuse Code(s): F10.10 - ALCOHOL ABUSE, UNCOMPLICATED Status: Chronic (9) Tobacco abuse Code(s): Z72.0 - TOBACCO USE Status: Chronic Comment: cigars (10) COPD (chronic obstructive pulmonary disease) Status: Suspected Qualifiers: COPD type: chronic bronchitis (11) Dehydration, moderate Code(s): E86.0 - DEHYDRATION Status: Resolved (12) Hemorrhagic shock Code(s): R57.8 - OTHER SHOCK Status: Resolved Comment: sec to profuse gi bleed (13) Hypotension Status: Resolved Qualifiers: Hypotension type: hypotension due to hypovolemia Qualified Code(s): I95.89 - Other hypotension; E86.1 - Hypovolemia (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 -: Once tolerating feeds and reasonably mature cuffed trach, consider IRF. -: Hgb stable. Surgery following. -: Appreciate Oncology input. -: Pneumonia treated * .
[2019-02-10] MEDS: Enoxaparin Sodium 40 MG/0.4 ML SYRINGE SC SCH (21:58)
[2019-02-11] MEDS: Dextrose 10% in Water 1,000 ML IV SCH ×3 (03:14→16:41)
[2019-02-11 05:11] LABS: #Eosinphils 0.3 thou/uL (0.0-0.7); #Lymphocytes 2.2 thou/uL (1.20-3.40); #Monocytes 1.1 thou/uL (0.11-0.59); #Neutrophils 7.3 thou/uL (1.40-6.50); %Basophils 0.1 % (0.0-1.0); %Lymphocytes 20.2 % (21.0-51.0); %Monocytes 10.3 % (0.0-10.0); %Neutrophils 66.5 % (42.0-75.0); Hemoglobin 9.4 g/dL (14.0-18.0); Mean Corpuscular HGB CONC 32.7 g/dL (32.0-36.0); Mean Corpuscular Hemoglobin 31.3 pg (27.0-31.0); Mean Corpuscular Volume 95.8 fL (78.0-98.0); Mean Platelet Volume 6.9 fL (7.4-10.4); Platelet Count 374 thou/uL (130-400); RBC Distribution Width 14.4 % (11.5-14.5); Red Blood Cell (RBC) Count 3.01 mill/uL (4.70-6.10); White Blood Cell (WBC) Count 10.9 thou/uL (4.8-10.8)
[2019-02-11 05:35] LABS: Anion Gap 9 mmol/L (10-20); BUN (Urea Nitrogen) 12 mg/dL (8.4-25.7); Calc. Creatinine Clearance 136 mL/min (70-130); Calcium 7.8 mg/dL (7.8-10.44); Carbon Dioxide 30 mmol/L (23-31); Chloride 103 mmol/L (98-107); Estimated GFR-MDRD 90; Glucose 127 mg/dL (80-115); Sodium 139 mmol/L (136-145)
[2019-02-11 05:39] LABS: Potassium 2.7 mmol/L (3.5-5.1)
[2019-02-11] MEDS ORDERED: Potassium Chloride 40 MEQ in Premix Bag 1 BAG IVPB SCH (06:30)
[2019-02-11] MEDS ORDERED: Hydrocodone-Acetamin 15 ML UDCUP PO PRN (08:28)
--- NOTE | 2019-02-11 08:33 | PDOC.GSPN ---
Surgery Progress Note: Subj - Subjective Patient reports: no new complaints Surgery Progress Note: Obj - Vital signs Vital signs: Vital Signs - Most Recent Temp Pulse Resp BP Pulse Ox 99.3 F 60 18 103/66 99 02/11/19 04:00 02/11/19 07:00 02/11/19 07:00 02/11/19 04:00 02/11/19 04:00 - Physical Exam General: no distress Abdomen: soft, appropriately tender Wound: wound vac (MARIBETH still serosang) Surgery Progress Note: Results - Labs Result Diagrams: 02/11/19 04:37 02/11/19 04:37 Lab results: Laboratory Results - last 24 hr 02/10/19 02/11/19 02/11/19 21:58 00:01 01:54 WBC RBC Hgb Hct MCV MCH MCHC RDW Plt Count MPV Neutrophils % Lymphocytes % Monocytes % Eosinophils % Basophils % Neutrophils # Lymphocytes # Monocytes # Eosinophils # Basophils # Sodium Potassium Chloride Carbon Dioxide Anion Gap BUN Creatinine Estimated GFR (MDRD) Glucose POC Glucose 117 H 136 H 134 H Calcium 02/11/19 02/11/19 02/11/19 04:07 04:37 04:37 WBC 10.9 H RBC 3.01 L Hgb 9.4 L Hct 28.8 L MCV 95.8 MCH 31.3 H MCHC 32.7 RDW 14.4 Plt Count 374 MPV 6.9 L Neutrophils % 66.5 Lymphocytes % 20.2 L Monocytes % 10.3 H Eosinophils % 3.0 Basophils % 0.1 Neutrophils # 7.3 H Lymphocytes # 2.2 Monocytes # 1.1 H Eosinophils # 0.3 Basophils # 0.0 Sodium 139 Potassium 2.7 L* Chloride 103 Carbon Dioxide 30 Anion Gap 9 L BUN 12 Creatinine 0.85 Estimated GFR (MDRD) 90 Glucose 127 H POC Glucose 131 H Calcium 7.8 02/11/19 02/11/19 05:44 07:58 WBC RBC Hgb Hct MCV MCH MCHC RDW Plt Count MPV Neutrophils % Lymphocytes % Monocytes % Eosinophils % Basophils % Neutrophils # Lymphocytes # Monocytes # Eosinophils # Basophils # Sodium Potassium Chloride Carbon Dioxide Anion Gap BUN Creatinine Estimated GFR (MDRD) Glucose POC Glucose 132 H 150 H Calcium Surgery Progress Note: A/P - Problem (1) Bleeding duodenal ulcer Current Visit: Yes Code(s): K26.4 - CHRONIC OR UNSPECIFIED DUODENAL ULCER WITH HEMORRHAGE Status: Acute - Plan Plan: Slow increase TF, expect edema at pylorus
[2019-02-11] MEDS: Pantoprazole 40 MG VIAL IVP SCH ×2 (09:18→20:16)
--- NOTE | 2019-02-11 09:42 | PRG ---
DATE OF SERVICE: 02/11/2019 SUBJECTIVE: The patient is doing reasonably well. He had his trach changed yesterday by Dr. Escobar. OBJECTIVE: VITAL SIGNS: Temperature is 99.3, pulse 60, respirations 18, O2 saturation 99%, and blood pressure 130/66. HEENT: Unremarkable. NECK: Trach in good position. Phonates well when trach is occluded. CARDIAC: S1 and S2, regular. LUNGS: Clear. ABDOMEN: Wound noted, seems to be healing well. EXTREMITIES: No edema. LABORATORY DATA: White blood cell count 10.9, hematocrit 28.8, platelet count 374. Sodium 139, potassium 2.7, chloride 103, CO2 of 30, BUN 12, creatinine 0.8, and glucose 127. ASSESSMENT: 1. Obstructing laryngeal cancer. 2. Status post trach. 3. Status post duodenal ulcer, requiring surgery. PLAN: Trach was changed to 6.0 yesterday. Appears to be doing well from the standpoint. Main issue now is resumption of feeds and getting his cancer treated. Job ID: [id number]
--- NOTE | 2019-02-11 14:28 | PDOC.PN ---
- Subjective Encounter Start Date: 02/11/19 Encounter Start Time: 13:00 Doing ok. No new complaints. Tolerating feeds. Asks again if the trach opening will eventually close and if he will be able to eat again soon. - Objective Resuscitation Status - Order Detail: 02/02/19 18:26 Resuscitation Status Routine Resuscitation Status: FULL: Full Resuscitation Vital Signs & Weight: Vital Signs (12 hours) Temp Pulse Resp BP Pulse Ox 02/11/19 12:00 98.8 F 76 18 105/69 96 02/11/19 10:31 80 18 02/11/19 08:00 99.3 F 86 18 105/69 96 02/11/19 07:00 60 18 02/11/19 04:00 99.3 F 65 16 103/66 99 Weight Admit Weight 225 lb 4.8 oz Weight 247 lb 2 oz Most Recent Monitor Data Heart Rate from ECG 58 NIBP 158/84 NIBP BP-Mean 108 Respiration from ECG 23 SpO2 94 I&O: 02/10/19 02/11/19 02/12/19 06:59 06:59 06:59 Intake Total 3350 1800 30 Output Total 5275 3490 Balance -6465 -0690 30 Result Diagrams: 02/11/19 04:37 02/11/19 04:37 Additional Labs: Accuchecks 02/11/19 02/11/19 02/11/19 09:43 07:58 05:44 POC Glucose 129 H 150 H 132 H 02/11/19 02/11/19 02/11/19 04:07 01:54 00:01 POC Glucose 131 H 134 H 136 H 02/10/19 02/10/19 02/10/19 21:58 20:16 18:16 POC Glucose 117 H 80 87 02/10/19 16:51 POC Glucose 85 Phys Exam - Physical Examination Constitutional: NAD Respiratory: no wheezing, no rhonchi Some rales/upper airway rhonchi. Cardiovascular: RRR, no significant murmur, no rub Gastrointestinal: soft, non-tender, no distention, positive bowel sounds Musculoskeletal: no edema Neurological: non-focal Psychiatric: normal affect, A&O x 3 Skin: no rash, normal turgor, cap refill <2 seconds Dx/Plan (1) Acute respiratory failure Code(s): J96.00 - ACUTE RESPIRATORY FAILURE, UNSP W HYPOXIA OR HYPERCAPNIA Status: Acute Qualifiers: Respiratory failure complication: hypoxia and hypercapnia Qualified Code(s) : J96.01 - Acute respiratory failure with hypoxia; J96.02 - Acute respiratory failure with hypercapnia Comment: resolving (2) ELIZABETH (acute kidney injury) Code(s): N17.9 - ACUTE KIDNEY FAILURE, UNSPECIFIED Status: Resolved (3) Bleeding duodenal ulcer Code(s): K26.4 - CHRONIC OR UNSPECIFIED DUODENAL ULCER WITH HEMORRHAGE Status : Acute (4) Acute blood loss anemia Code(s): D62 - ACUTE POSTHEMORRHAGIC ANEMIA Status: Acute Comment: recieved MTP (total of 15u prbc, 3 liq plasma, 6 ffp, 2 platelet and 1 cryo were given in total this admission) (5) GI bleed Code(s): K92.2 - GASTROINTESTINAL HEMORRHAGE, UNSPECIFIED Status: Acute Qualifiers: GI bleed type/associated pathology: duodenal ulcer Qualified Code(s): K26.4 - Chronic or unspecified duodenal ulcer with hemorrhage Comment: s/p gastrotomy and control of bleeding (6) PNA (pneumonia) Code(s): J18.9 - PNEUMONIA, UNSPECIFIED ORGANISM Status: Resolved Qualifiers: Pneumonia type: aspiration pneumonia Laterality: right Lung location: middle lobe of lung (7) Status post tracheostomy Code(s): Z93.0 - TRACHEOSTOMY STATUS Status: Acute Comment: sec to supraglottic mass for airway (8) Alcohol abuse Code(s): F10.10 - ALCOHOL ABUSE, UNCOMPLICATED Status: Chronic (9) Tobacco abuse Code(s): Z72.0 - TOBACCO USE Status: Chronic Comment: cigars (10) COPD (chronic obstructive pulmonary disease) Status: Suspected Qualifiers: COPD type: chronic bronchitis (11) Dehydration, moderate Code(s): E86.0 - DEHYDRATION Status: Resolved (12) Hemorrhagic shock Code(s): R57.8 - OTHER SHOCK Status: Resolved Comment: sec to profuse gi bleed (13) Hypotension Status: Resolved Qualifiers: Hypotension type: hypotension due to hypovolemia Qualified Code(s): I95.89 - Other hypotension; E86.1 - Hypovolemia (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 * Continue to titrate. * Once tolerating feeds, may need to go to IRF for rehab and regaining strength. * Once he is stronger, well healed from surgery and has adequate nutrition for the enteral feeds, he will be a candidate for chemo/xrt. * Long discussion with patient regarding the long-term course and the need to prepare for the long haul.
--- NOTE | 2019-02-11 15:21 | CON ---
DATE OF CONSULTATION: 02/10/2019 REASON FOR CONSULTATION: Mr. Benjamin is a 68-year-old gentleman, who has been diagnosed with supraglottic laryngeal cancer. This is as yet unstaged. I was asked to see him to discuss his treatment options. HISTORY OF PRESENT ILLNESS: Mr. Benjamin presented with progressive shortness of breath over several months time. He was also having a scratchy throat and some difficulty with eating and swallowing. He presented to the emergency room and ultimately was found to have a supraglottic laryngeal cancer, for which he underwent a tracheostomy. At the time of tracheostomy, he was found to have a tumor involving much of the right epiglottis, arytenoid, and extending into the right piriform sinus. 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 He began having an upper GI hemorrhage unrelated to this procedure. This could not be controlled with endoscopy and he subsequently had to be taken to the operating room because of hemodynamic instability. He underwent exploratory laparotomy and oversewing of several ulcers. Initially, his abdomen was left open and he was observed in the intensive care unit until he was hemodynamically stable. Ultimately, he had closure of his laparotomy incision and had a G-tube placed. Just yesterday, he started PEG tube feedings. His recovery has been slow, but he has continued to improve. I am seeing him today to begin discussions as far as treatment of his malignancy. Because of his tracheostomy, he is unable to talk very well and cannot give much history. He does report that he has been having some ear pain for about a year. He voices no other complaints. PAST MEDICAL HISTORY: 1. Supraglottic laryngeal cancer as mentioned above. 2. COPD. 3. Status post tonsillectomy. 4. Status post appendectomy. 5. He denies other medical or surgical problems. MEDICATIONS: 1. DuoNeb nebulizers. 2. Zofran p.r.n. 3. Protonix. 4. Hydrocodone. ALLERGIES: NO KNOWN MEDICAL ALLERGIES. SOCIAL HISTORY: The patient was living in [place], [place] by himself. He was smoking up to a pack of cigarettes per day. He was drinking at least a 6-pack per day up until his symptoms. He is . He really has no immediate family in the area. He has no children. He does have a friend, who lives here [facility]. FAMILY HISTORY: Father from a car wreck. Mother at age 85. He has a brother with diabetes. There is no other family history of malignancy. REVIEW OF SYSTEMS: 12-system review of systems is otherwise negative. PHYSICAL EXAMINATION: VITAL SIGNS: Height 6 feet 1 inch and weight 247 pounds. His blood pressure is 105/68, pulse is 64, respirations are 16, temperature is 99.1, and O2 saturation is 93% on the tracheal collar. GENERAL: He is alert and oriented and in no apparent distress. Karnofsky performance status is a 60%, but expected to improve. HEENT: Eyes, pupils equal, round, and react to light. EOMs are intact. ENT, oral cavity and oropharynx normal without lesion or erythema. Palate elevates symmetrically. Gingiva is intact. The patient is edentulous. NECK: Obese. There is no preauricular, submandibular, cervical or supraclavicular adenopathy. Tracheostomy is in place in the suprasternal notch region. No thyromegaly. Larynx midline. LUNGS: Breathing nonlabored. Clear to auscultation and percussion. CARDIOVASCULAR: Heart, regular rhythm without murmur. No lower extremity edema. ABDOMEN: Obese, soft, nontender, nondistended without mass or hepatosplenomegaly. Liver percusses to normal size. J-tube is in place. SKIN: Without rash or purpura. NEUROLOGIC: Cranial nerves 2 through 12 grossly intact. Motor strength is 5/5 in both upper and lower extremities in all muscle groups tested. Reflexes are normal and symmetrical. Gait was not tested. RADIOLOGIC DATA: CT angiogram showed no evidence of mass or adenopathy. There was some consolidation in the left lower lobe of unknown significance. CT of the abdomen and pelvis showed no evidence of contrast leak from the stomach. There was a left adrenal mass, which is felt to be an adrenal adenoma. There is no evidence of liver metastasis. CT of the neck has not been performed. LABORATORY DATA: Biopsy showed a basaloid squamous cell carcinoma. CBC revealed a white blood cell count of 10,600 with hemoglobin of 9.2, hematocrit of 28.0, and platelet count of 317,000. Chemistry group showed a sodium of 141 with a potassium of 2.7. Creatinine is 0.85 with a GFR of greater than 90. ASSESSMENT: Mr. Benjamin is a 68-year-old male, who has been diagnosed with a squamous cell carcinoma of the supraglottic larynx. This has not yet been completely staged. He has had multiple medical issues with this hospitalization including bleeding ulcers, which required emergent laparotomy. He is slowly recovering from this. PLAN: At the present time, he is not yet ready for treatment. He will need to continue to increase his strength and physical activity. Hopefully, in the next several weeks, he will make progress toward being able to have treatment. We will need to stage his cancer and likely we will get a PET scan obtained as an outpatient for staging purposes. Most likely, his treatment is going to consist of concurrent chemotherapy and radiation. I did discuss with him the recommendation for radiation therapy. The logistics of radiation as well as the benefits and risk of treatment were discussed. The simulation and daily treatment procedure were discussed. Side effects would include but not be limited to skin reaction, fatigue, lower blood counts, difficulty or pain with swallowing, weight loss, dry mouth, hoarseness, possible damage to his larynx, possible damage to his mandible, hair loss, which may be permanent, and small risk of damage to any other structures, which receives radiation therapy. He was encouraged not to smoke because this not only increases the risk of recurrence, but also increases the risk of long-term complications. He voices understanding of the current recommendation. At this point, we will continue to let him increase his strength and physical activity. We will re-evaluate him as an outpatient and likely arrange for the appropriate staging studies. We will then consider pursuing treatment if his strength continues to improve. I will see him as an outpatient after discharge. Thank you for this interesting consultation. Job ID: [id number]
[2019-02-11] MEDS: Enoxaparin Sodium 40 MG/0.4 ML SYRINGE SC SCH (20:16)
[2019-02-12 06:25] LABS: #Eosinphils 0.3 thou/uL (0.0-0.7); #Lymphocytes 1.9 thou/uL (1.20-3.40); #Monocytes 1.2 thou/uL (0.11-0.59); #Neutrophils 6.6 thou/uL (1.40-6.50); %Basophils 0.4 % (0.0-1.0); %Eosinophils 3.1 % (0.0-10.0); %Lymphocytes 18.6 % (21.0-51.0); %Monocytes 11.8 % (0.0-10.0); %Neutrophils 66.2 % (42.0-75.0); Hemoglobin 9.3 g/dL (14.0-18.0); Mean Corpuscular HGB CONC 32.1 g/dL (32.0-36.0); Mean Corpuscular Hemoglobin 30.9 pg (27.0-31.0); Mean Corpuscular Volume 96.2 fL (78.0-98.0); Mean Platelet Volume 6.8 fL (7.4-10.4); Platelet Count 399 thou/uL (130-400); RBC Distribution Width 14.4 % (11.5-14.5); Red Blood Cell (RBC) Count 3.02 mill/uL (4.70-6.10)
[2019-02-12 06:44] LABS: Anion Gap 9 mmol/L (10-20); BUN (Urea Nitrogen) 12 mg/dL (8.4-25.7); Calc. Creatinine Clearance 142 mL/min (70-130); Calcium 8.1 mg/dL (7.8-10.44); Carbon Dioxide 31 mmol/L (23-31); Chloride 105 mmol/L (98-107); Estimated GFR-MDRD Greater than 90; Glucose 131 mg/dL (80-115); Sodium 142 mmol/L (136-145)
[2019-02-12 06:46] LABS: Potassium 2.9 mmol/L (3.5-5.1)
[2019-02-12] MEDS: Pantoprazole 40 MG VIAL IVP SCH ×2 (09:10→20:54)
[2019-02-12] MEDS: Dextrose 10% in Water 1,000 ML IV SCH (09:10)
--- NOTE | 2019-02-12 09:21 | PDOC.GSPN ---
Surgery Progress Note: Subj - Subjective Patient reports: no new complaints Narrative: No nausea Surgery Progress Note: Obj - Vital signs Vital signs: Vital Signs - Most Recent Temp Pulse Resp BP Pulse Ox 99.3 F 65 16 173/80 H 95 02/12/19 07:15 02/12/19 07:15 02/12/19 07:15 02/12/19 07:15 02/12/19 07:15 - Physical Exam General: no distress Respiratory: clear to auscultation Abdomen: soft, appropriately tender Wound: wound vac Surgery Progress Note: Results - Labs Result Diagrams: 02/12/19 06:00 02/12/19 06:00 Lab results: Laboratory Results - last 24 hr 02/12/19 02/12/19 02/12/19 01:41 06:00 06:00 WBC 10.0 RBC 3.02 L Hgb 9.3 L Hct 29.1 L MCV 96.2 MCH 30.9 MCHC 32.1 RDW 14.4 Plt Count 399 MPV 6.8 L Neutrophils % 66.2 Lymphocytes % 18.6 L Monocytes % 11.8 H Eosinophils % 3.1 Basophils % 0.4 Neutrophils # 6.6 H Lymphocytes # 1.9 Monocytes # 1.2 H Eosinophils # 0.3 Basophils # 0.0 Sodium 142 Potassium 2.9 L* Chloride 105 Carbon Dioxide 31 Anion Gap 9 L BUN 12 Creatinine 0.81 Estimated GFR (MDRD) Greater than 90 Glucose 131 H POC Glucose 133 H Calcium 8.1 Magnesium 02/12/19 02/12/19 06:00 06:15 WBC RBC Hgb Hct MCV MCH MCHC RDW Plt Count MPV Neutrophils % Lymphocytes % Monocytes % Eosinophils % Basophils % Neutrophils # Lymphocytes # Monocytes # Eosinophils # Basophils # Sodium Potassium Chloride Carbon Dioxide Anion Gap BUN Creatinine Estimated GFR (MDRD) Glucose POC Glucose 117 H Calcium Magnesium 1.8 Surgery Progress Note: A/P - Problem (1) Bleeding duodenal ulcer Current Visit: Yes Code(s): K26.4 - CHRONIC OR UNSPECIFIED DUODENAL ULCER WITH HEMORRHAGE Status: Acute - Plan Plan: Doing well. Continue PT -increase TF -MARIBETH out tomorrow
--- NOTE | 2019-02-12 11:13 | PRG ---
DATE OF SERVICE: 02/12/2019 SUBJECTIVE: Andre Benjamin, this morning, is doing well. Trach in place. In no distress. OBJECTIVE: VITAL SIGNS: Sats are 95% on trach collar, respiratory rate 16, pulse temperature 99, blood pressure 148/78. CHEST: Decreased breath sounds without any wheezing. CARDIAC: Normal S1 and S2. No gallops potassium 2.9. IMPRESSION: 1. Status post trach for a carcinoma of head and neck, squamous cell. 2. Peptic ulcer disease. 3. Chronic obstructive pulmonary disease. 4. Obesity. PLAN: Continue neb treatments, supportive care. Job ID: [id number]
[2019-02-12] MEDS: D5 1/2 NS w/20 mEq KCL 1,000 ML IV SCH (11:18)
[2019-02-12] MEDS: Morphine 2 MG/ML SYRINGE SLOW IVP PRN (11:19)
[2019-02-12] MEDS ORDERED: Potassium Chloride 20 MEQ TAB PER TUBE SCH (14:00)
--- NOTE | 2019-02-12 14:01 | PDOC.PN ---
- Subjective Encounter Start Date: 02/12/19 Encounter Start Time: 11:00 Doing well. Will use the speaking valve when I am there, but otherwise does not like it. Again asks if he well be able to eat soon. Having some liquid stools. - Objective Resuscitation Status - Order Detail: 02/02/19 18:26 Resuscitation Status Routine Resuscitation Status: FULL: Full Resuscitation Vital Signs & Weight: Vital Signs (12 hours) Temp Pulse Resp BP BP Pulse Ox 02/12/19 12:25 99.1 F 73 20 113/70 99 02/12/19 11:50 63 16 98 02/12/19 08:20 75 16 96 02/12/19 07:15 99.3 F 65 16 148/78 H 95 02/12/19 04:00 98.8 F 87 16 129/71 96 02/12/19 02:07 16 Weight Admit Weight 225 lb 4.8 oz Weight 247 lb 2 oz Most Recent Monitor Data Heart Rate from ECG 58 NIBP 158/84 NIBP BP-Mean 108 Respiration from ECG 23 SpO2 94 I&O: 02/11/19 02/12/19 02/13/19 06:59 06:59 06:59 Intake Total 1800 3280 60 Output Total 3490 3575 Balance -1690 -295 60 Result Diagrams: 02/12/19 06:00 02/12/19 06:00 Additional Labs: Accuchecks 02/12/19 02/12/19 02/12/19 12:28 06:15 01:41 POC Glucose 113 H 117 H 133 H 02/11/19 02/11/19 17:13 12:02 POC Glucose 123 H 129 H Phys Exam - Physical Examination Constitutional: NAD Very comfortable. Respiratory: no wheezing Upper airway rhonchi. Cardiovascular: RRR, no significant murmur, no rub Gastrointestinal: soft, non-tender, no distention, positive bowel sounds PEG and drain in place. Musculoskeletal: no edema Neurological: non-focal, normal sensation, moves all 4 limbs Psychiatric: normal affect, A&O x 3 Skin: no rash, normal turgor, cap refill <2 seconds Dx/Plan (1) Acute respiratory failure Code(s): J96.00 - ACUTE RESPIRATORY FAILURE, UNSP W HYPOXIA OR HYPERCAPNIA Status: Acute Qualifiers: Respiratory failure complication: hypoxia and hypercapnia Qualified Code(s) : J96.01 - Acute respiratory failure with hypoxia; J96.02 - Acute respiratory failure with hypercapnia Comment: resolving (2) ELIZABETH (acute kidney injury) Code(s): N17.9 - ACUTE KIDNEY FAILURE, UNSPECIFIED Status: Resolved (3) Bleeding duodenal ulcer Code(s): K26.4 - CHRONIC OR UNSPECIFIED DUODENAL ULCER WITH HEMORRHAGE Status : Acute (4) Acute blood loss anemia Code(s): D62 - ACUTE POSTHEMORRHAGIC ANEMIA Status: Acute Comment: recieved MTP (total of 15u prbc, 3 liq plasma, 6 ffp, 2 platelet and 1 cryo were given in total this admission) (5) GI bleed Code(s): K92.2 - GASTROINTESTINAL HEMORRHAGE, UNSPECIFIED Status: Acute Qualifiers: GI bleed type/associated pathology: duodenal ulcer Qualified Code(s): K26.4 - Chronic or unspecified duodenal ulcer with hemorrhage Comment: s/p gastrotomy and control of bleeding (6) PNA (pneumonia) Code(s): J18.9 - PNEUMONIA, UNSPECIFIED ORGANISM Status: Resolved Qualifiers: Pneumonia type: aspiration pneumonia Laterality: right Lung location: middle lobe of lung (7) Status post tracheostomy Code(s): Z93.0 - TRACHEOSTOMY STATUS Status: Acute Comment: sec to supraglottic mass for airway (8) Alcohol abuse Code(s): F10.10 - ALCOHOL ABUSE, UNCOMPLICATED Status: Chronic (9) Tobacco abuse Code(s): Z72.0 - TOBACCO USE Status: Chronic Comment: cigars (10) COPD (chronic obstructive pulmonary disease) Status: Suspected Qualifiers: COPD type: chronic bronchitis (11) Dehydration, moderate Code(s): E86.0 - DEHYDRATION Status: Resolved (12) Hemorrhagic shock Code(s): R57.8 - OTHER SHOCK Status: Resolved Comment: sec to profuse gi bleed (13) Hypotension Status: Resolved Qualifiers: Hypotension type: hypotension due to hypovolemia Qualified Code(s): I95.89 - Other hypotension; E86.1 - Hypovolemia (14) Squamous cell carcinoma of larynx Code(s): C32.9 - MALIGNANT NEOPLASM OF LARYNX, UNSPECIFIED Status: Acute - Plan * Doing well post-trach. Speaking valve PRN. * Post-op massively bleeding duodenal ulcer with oversew. * MARIBETH drain to come out. * Feeding via PEG. Tolerating well. Increase rate. Has some loose stools. * Has generalized weakness. * Hope to get to IRF soon. * Has been seen by Med Onc and Rad Onc. * Needs a couple of weeks of recovery and nutrition prior to starting treatment. * COPD is stable. * Pneumonia resolved. * Will consult Palliative Care. Patient has no family with whom he communicates. Need to clarify some of his advanced care planning wishes.
[2019-02-12 14:36] LABS: Potassium 3.4 mmol/L (3.5-5.1)
[2019-02-12] MEDS ORDERED: Scopolamine 1.5 mg/72 hour Patch TD SCH (20:00)
[2019-02-12] MEDS: Enoxaparin Sodium 40 MG/0.4 ML SYRINGE SC SCH (20:53)
[2019-02-13 05:30] LABS: #Eosinphils 0.3 thou/uL (0.0-0.7); #Monocytes 1.3 thou/uL (0.11-0.59); #Neutrophils 7.5 thou/uL (1.40-6.50); %Basophils 0.1 % (0.0-1.0); %Monocytes 11.8 % (0.0-10.0); Hemoglobin 9.3 g/dL (14.0-18.0); Mean Corpuscular HGB CONC 32.7 g/dL (32.0-36.0); Mean Corpuscular Hemoglobin 31.5 pg (27.0-31.0); Mean Corpuscular Volume 96.1 fL (78.0-98.0); Mean Platelet Volume 7.1 fL (7.4-10.4); Platelet Count 419 thou/uL (130-400); RBC Distribution Width 14.6 % (11.5-14.5); Red Blood Cell (RBC) Count 2.96 mill/uL (4.70-6.10); White Blood Cell (WBC) Count 11.2 thou/uL (4.8-10.8)
[2019-02-13 05:53] LABS: Anion Gap 8 mmol/L (10-20); BUN (Urea Nitrogen) 18 mg/dL (8.4-25.7); Calc. Creatinine Clearance 135 mL/min (70-130); Carbon Dioxide 28 mmol/L (23-31); Chloride 107 mmol/L (98-107); Estimated GFR-MDRD Greater than 90; Glucose 135 mg/dL (80-115); Potassium 3.3 mmol/L (3.5-5.1); Sodium 140 mmol/L (136-145)
[2019-02-13] MEDS: D5 1/2 NS w/20 mEq KCL 1,000 ML IV SCH (06:16)
[2019-02-13] MEDS ORDERED: Potassium Chloride 20 MEQ TAB PER TUBE SCH (07:45)
[2019-02-13] MEDS: Pantoprazole 40 MG VIAL IVP SCH ×2 (09:08→21:02)
--- NOTE | 2019-02-13 09:52 | PRG ---
DATE OF SERVICE: 02/13/2019 SUBJECTIVE: Mr. Benjamin has no complaints this morning. His tube feeds are now at goal. OBJECTIVE: VITAL SIGNS: He is afebrile. Vital signs are stable. ABDOMEN: His abdomen is soft, minimally distended. Occasional bowel sounds. Wound VAC, MARIBETH serosanguineous. ASSESSMENT: Postop over-sew duodenal bleeding ulcer. PLAN: Continue PT, likely will need rehab placement. Job ID: [id number]
--- NOTE | 2019-02-13 10:50 | PRG ---
DATE OF SERVICE: SUBJECTIVE: Andre Benjamin is doing well this morning. Less short of breath. Trach in place. OBJECTIVE: VITAL SIGNS: Saturations are 99%, respirations 18, temperature 99, pulse 70, and blood pressure 163/71. CHEST: Anterior rhonchi. CARDIAC: Normal S1 and S2. No gallops. ABDOMEN: No masses. ASSESSMENT: 1. Head and neck cancer, status post trach, squamous cell. 2. Bleeding peptic ulcer. PLAN: Awaiting input from Oncology. Continue neb treatments, supportive care. Job ID: [id number]
--- NOTE | 2019-02-13 11:47 | PDOC.PN ---
- Subjective Encounter Start Date: 02/13/19 Encounter Start Time: 08:40 Doing well. No complaints. Again asks if he will be able to get the trach out soon. - Objective Resuscitation Status - Order Detail: 02/02/19 18:26 Resuscitation Status Routine Resuscitation Status: FULL: Full Resuscitation Vital Signs & Weight: Vital Signs (12 hours) Temp Pulse Resp BP BP Pulse Ox 02/13/19 07:24 99.1 F 70 18 163/71 H 99 02/13/19 06:44 76 20 98 02/13/19 04:59 98.8 F 69 16 173/89 H 94 L 02/13/19 02:19 20 02/13/19 00:34 98.6 F 65 22 H 149/81 H 98 Weight Admit Weight 225 lb 4.8 oz Weight 231 lb 8 oz Most Recent Monitor Data Heart Rate from ECG 58 NIBP 158/84 NIBP BP-Mean 108 Respiration from ECG 23 SpO2 94 I&O: 02/12/19 02/13/19 02/14/19 06:59 06:59 06:59 Intake Total 3280 1715 30 Output Total 3575 1815 Balance -295 -100 30 Result Diagrams: 02/13/19 04:55 02/13/19 04:55 Additional Labs: Accuchecks 02/13/19 02/13/19 02/12/19 04:49 00:52 18:30 POC Glucose 145 H 118 H 105 02/12/19 12:28 POC Glucose 113 H Phys Exam - Physical Examination Constitutional: NAD Speaks with the speaking valve in place. Respiratory: no wheezing, no rales Lots of upper secretions with rhonchi. Cardiovascular: RRR, no significant murmur, no rub Gastrointestinal: soft, non-tender, no distention, positive bowel sounds Musculoskeletal: no edema Psychiatric: normal affect, A&O x 3 Dx/Plan (1) Acute respiratory failure Code(s): J96.00 - ACUTE RESPIRATORY FAILURE, UNSP W HYPOXIA OR HYPERCAPNIA Status: Acute Qualifiers: Respiratory failure complication: hypoxia and hypercapnia Qualified Code(s) : J96.01 - Acute respiratory failure with hypoxia; J96.02 - Acute respiratory failure with hypercapnia Comment: resolving (2) ELIZABETH (acute kidney injury) Code(s): N17.9 - ACUTE KIDNEY FAILURE, UNSPECIFIED Status: Resolved (3) Bleeding duodenal ulcer Code(s): K26.4 - CHRONIC OR UNSPECIFIED DUODENAL ULCER WITH HEMORRHAGE Status : Acute (4) Acute blood loss anemia Code(s): D62 - ACUTE POSTHEMORRHAGIC ANEMIA Status: Acute Comment: recieved MTP (total of 15u prbc, 3 liq plasma, 6 ffp, 2 platelet and 1 cryo were given in total this admission) (5) GI bleed Code(s): K92.2 - GASTROINTESTINAL HEMORRHAGE, UNSPECIFIED Status: Acute Qualifiers: GI bleed type/associated pathology: duodenal ulcer Qualified Code(s): K26.4 - Chronic or unspecified duodenal ulcer with hemorrhage Comment: s/p gastrotomy and control of bleeding (6) PNA (pneumonia) Code(s): J18.9 - PNEUMONIA, UNSPECIFIED ORGANISM Status: Resolved Qualifiers: Pneumonia type: aspiration pneumonia Laterality: right Lung location: middle lobe of lung (7) Status post tracheostomy Code(s): Z93.0 - TRACHEOSTOMY STATUS Status: Acute Comment: sec to supraglottic mass for airway (8) Alcohol abuse Code(s): F10.10 - ALCOHOL ABUSE, UNCOMPLICATED Status: Chronic (9) Tobacco abuse Code(s): Z72.0 - TOBACCO USE Status: Chronic Comment: cigars (10) COPD (chronic obstructive pulmonary disease) Status: Suspected Qualifiers: COPD type: chronic bronchitis (11) Dehydration, moderate Code(s): E86.0 - DEHYDRATION Status: Resolved (12) Hemorrhagic shock Code(s): R57.8 - OTHER SHOCK Status: Resolved Comment: sec to profuse gi bleed (13) Hypotension Status: Resolved Qualifiers: Hypotension type: hypotension due to hypovolemia Qualified Code(s): I95.89 - Other hypotension; E86.1 - Hypovolemia (14) Squamous cell carcinoma of larynx Code(s): C32.9 - MALIGNANT NEOPLASM OF LARYNX, UNSPECIFIED Status: Acute (15) Hypokalemia Code(s): E87.6 - HYPOKALEMIA Status: Acute - Plan * Had some hypoglycemia prior to initiating feeds. Better now. Will DC the D5. * Ensure he is getting adequate free water via PEG. * DC Browning and check bladder scan if no UOP in six hours. * Concerned that he has asked the same question about eating and or the trach each day. Doesn't seem to remember the discussion day to day. * Plan to get to IRF as soon as available to work on nutrition and conditioning. * Will need chemo and XRT, but only after he has has a couple of weeks to heal from the surgery and get stronger. * Potassium is starting normalize. Continue to monitor.
[2019-02-13] MEDS: Enoxaparin Sodium 40 MG/0.4 ML SYRINGE SC SCH (21:02)
[2019-02-14 05:53] LABS: #Eosinphils 0.3 thou/uL (0.0-0.7); #Lymphocytes 2.1 thou/uL (1.20-3.40); #Monocytes 1.5 thou/uL (0.11-0.59); #Neutrophils 7.9 thou/uL (1.40-6.50); %Basophils 0.1 % (0.0-1.0); %Eosinophils 2.6 % (0.0-10.0); %Lymphocytes 17.6 % (21.0-51.0); %Monocytes 12.7 % (0.0-10.0); Hemoglobin 8.8 g/dL (14.0-18.0); Mean Corpuscular HGB CONC 31.5 g/dL (32.0-36.0); Mean Corpuscular Hemoglobin 30.4 pg (27.0-31.0); Mean Corpuscular Volume 96.7 fL (78.0-98.0); Mean Platelet Volume 6.9 fL (7.4-10.4); Platelet Count 431 thou/uL (130-400); RBC Distribution Width 14.5 % (11.5-14.5); Red Blood Cell (RBC) Count 2.89 mill/uL (4.70-6.10); White Blood Cell (WBC) Count 11.8 thou/uL (4.8-10.8)
[2019-02-14 06:13] LABS: Anion Gap 9 mmol/L (10-20); BUN (Urea Nitrogen) 24 mg/dL (8.4-25.7); Calc. Creatinine Clearance 138 mL/min (70-130); Calcium 8.1 mg/dL (7.8-10.44); Carbon Dioxide 28 mmol/L (23-31); Chloride 108 mmol/L (98-107); Estimated GFR-MDRD Greater than 90; Glucose 141 mg/dL (80-115); Potassium 3.5 mmol/L (3.5-5.1); Sodium 141 mmol/L (136-145)
[2019-02-14] MEDS: Pantoprazole 40 MG VIAL IVP SCH ×2 (08:24→20:43)
--- NOTE | 2019-02-14 09:01 | PDOC.GSPN ---
Surgery Progress Note: Subj - Subjective Patient reports: no new complaints Surgery Progress Note: Obj - Vital signs Vital signs: Vital Signs - Most Recent Temp Pulse Resp BP Pulse Ox 98.1 F 70 16 129/66 95 02/14/19 07:38 02/14/19 07:38 02/14/19 07:38 02/14/19 07:38 02/14/19 07:38 - Physical Exam General: no distress Abdomen: soft, appropriately tender Wound: wound vac Surgery Progress Note: Results - Labs Result Diagrams: 02/14/19 05:30 02/14/19 05:30 Lab results: Laboratory Results - last 24 hr 02/09/19 02/14/19 02/14/19 18:04 01:02 05:30 WBC RBC Hgb Hct MCV MCH MCHC RDW Plt Count MPV Neutrophils % Lymphocytes % Monocytes % Eosinophils % Basophils % Neutrophils # Lymphocytes # Monocytes # Eosinophils # Basophils # Sodium 141 Potassium 3.5 Chloride 108 H Carbon Dioxide 28 Anion Gap 9 L BUN 24 Creatinine 0.78 Estimated GFR (MDRD) Greater than 90 Glucose 141 H POC Glucose 49 L* 144 H Calcium 8.1 02/14/19 02/14/19 05:30 05:50 WBC 11.8 H RBC 2.89 L Hgb 8.8 L Hct 28.0 L MCV 96.7 MCH 30.4 MCHC 31.5 L RDW 14.5 Plt Count 431 H MPV 6.9 L Neutrophils % 67.0 Lymphocytes % 17.6 L Monocytes % 12.7 H Eosinophils % 2.6 Basophils % 0.1 Neutrophils # 7.9 H Lymphocytes # 2.1 Monocytes # 1.5 H Eosinophils # 0.3 Basophils # 0.0 Sodium Potassium Chloride Carbon Dioxide Anion Gap BUN Creatinine Estimated GFR (MDRD) Glucose POC Glucose 143 H Calcium Surgery Progress Note: A/P - Problem (1) Bleeding duodenal ulcer Current Visit: Yes Code(s): K26.4 - CHRONIC OR UNSPECIFIED DUODENAL ULCER WITH HEMORRHAGE Status: Acute Assessment and Plan: s/p oversew bleeding duodenal ulcer - Plan Plan: Tolerating TF at goal -DC MARIBETH -Rehab? LTAC?
--- NOTE | 2019-02-14 09:07 | PDOC.PN ---
- Subjective Encounter Start Date: 02/14/19 Encounter Start Time: 11:30 Subjective: Patient without complaint. Awaiting rehab placement. No trouble breathing -: through trach. - Objective Resuscitation Status - Order Detail: 02/02/19 18:26 Resuscitation Status Routine Resuscitation Status: FULL: Full Resuscitation MAR Reviewed: Yes Vital Signs & Weight: Vital Signs (12 hours) Temp Pulse Resp BP BP Pulse Ox 02/14/19 07:38 98.1 F 70 16 129/66 95 02/14/19 06:49 79 18 95 02/14/19 04:00 98.7 F 65 16 113/64 95 02/14/19 01:58 16 02/14/19 00:00 98.7 F 73 16 167/80 H 93 L 02/13/19 22:36 20 Weight Admit Weight 225 lb 4.8 oz Weight 231 lb 8 oz Most Recent Monitor Data Heart Rate from ECG 58 NIBP 158/84 NIBP BP-Mean 108 Respiration from ECG 23 SpO2 94 I&O: 02/13/19 02/14/19 02/15/19 06:59 06:59 06:59 Intake Total 1715 1500 Output Total 1815 2135 Balance -100 -635 Result Diagrams: 02/14/19 05:30 02/14/19 05:30 Additional Labs: Accuchecks 02/14/19 02/14/19 02/13/19 05:50 01:02 16:00 POC Glucose 143 H 144 H 112 H 02/13/19 02/09/19 11:19 18:04 POC Glucose 109 49 L* Phys Exam - Physical Examination Constitutional: NAD HEENT: moist MMs trach collar in place with O2 Respiratory: no wheezing, no rales, no rhonchi Cardiovascular: RRR Gastrointestinal: soft, positive bowel sounds Neurological: non-focal, moves all 4 limbs Psychiatric: normal affect, A&O x 3 Dx/Plan (1) Bleeding duodenal ulcer Code(s): K26.4 - CHRONIC OR UNSPECIFIED DUODENAL ULCER WITH HEMORRHAGE Status : Acute Comment: s/p oversewing ulcer, MARIBETH drain out, ready for rehab (2) Acute blood loss anemia Code(s): D62 - ACUTE POSTHEMORRHAGIC ANEMIA Status: Acute Comment: recieved MTP (total of 15u prbc, 3 liq plasma, 6 ffp, 2 platelet and 1 cryo were given in total this admission), now stable after oversewing of ulcer (3) Acute respiratory failure Code(s): J96.00 - ACUTE RESPIRATORY FAILURE, UNSP W HYPOXIA OR HYPERCAPNIA Status: Acute Qualifiers: Respiratory failure complication: hypoxia and hypercapnia Qualified Code(s) : J96.01 - Acute respiratory failure with hypoxia; J96.02 - Acute respiratory failure with hypercapnia Comment: resolving, has trach (4) Squamous cell carcinoma of larynx Code(s): C32.9 - MALIGNANT NEOPLASM OF LARYNX, UNSPECIFIED Status: Acute Comment: needs oncology ([facility]) and radonc ([facility]) follow up as outpatient, may be strong enough to start chemo and radiation in a few weeks (5) Status post tracheostomy Code(s): Z93.0 - TRACHEOSTOMY STATUS Status: Acute Comment: sec to supraglottic mass for airway (6) PNA (pneumonia) Code(s): J18.9 - PNEUMONIA, UNSPECIFIED ORGANISM Status: Resolved Qualifiers: Pneumonia type: aspiration pneumonia Laterality: right Lung location: middle lobe of lung (7) COPD (chronic obstructive pulmonary disease) Status: Chronic Qualifiers: COPD type: chronic bronchitis (8) Alcohol abuse Code(s): F10.10 - ALCOHOL ABUSE, UNCOMPLICATED Status: Chronic (9) Tobacco abuse Code(s): Z72.0 - TOBACCO USE Status: Chronic Comment: cigars (10) Hypokalemia Code(s): E87.6 - HYPOKALEMIA Status: Resolved - Plan cont current plan of care, PT/OT, respiratory therapy awaiting rehab placement * . - Discharge Day Encounter end time: 11:45
--- NOTE | 2019-02-14 09:55 | PRG ---
DATE OF SERVICE: 02/14/2019 SUBJECTIVE: Mr. Benjamin seems to be doing fairly well. OBJECTIVE: VITAL SIGNS: Temperature 98.1, pulse 74, respirations 16, O2 saturation 95%, and blood pressure 129/66. HEENT: Unremarkable. NECK: He has audible noises along his tracheostomy. He has secretions from his trach. CARDIAC: S1 and S2, regular. ABDOMEN: Soft. Wound VAC noted. PEG tube noted. EXTREMITIES: No edema. LABORATORY DATA: White blood cell count 11.8, hematocrit 28, and platelet count 431. Sodium 141, potassium 3.5, chloride 108, CO2 of 28, BUN 24, creatinine 0.7, glucose 148. ASSESSMENT: 1. Head and neck cancer. 2. Status post emergent tracheostomy. 3. Status post duodenal bleed with subsequent surgical intervention. PLAN: I think, we can go ahead and stop his daily labs. Continue enteral tube feed. Increase activity as tolerated. Hopefully, home soon. Job ID: [id number]
--- NOTE | 2019-02-14 14:44 | ULT ---
Ultrasound Doppler duplex arterial left upper extremity: DATE: 02/14/2019 HISTORY: 68-year-old male with diminished left radial pulse TECHNIQUE: Grayscale, color-flow, and spectral analysis, of major arteries of left upper extremity FINDINGS: All pulse Doppler waveforms are monophasic. Peak systolic velocities in centimeters per second: Left subclavian: 32 - 37 cm/s Axillary: 40 Brachial, proximal: 45 Brachial, distal: 25 Radial: 15-20 Ulnar: 10 IMPRESSION: Monophasic waveforms throughout all major arteries of left upper extremity suggestive of hemodynamica lly significant stenosis.
[2019-02-14 15:00] VITALS: BMI 30.5
[2019-02-14] MEDS: Enoxaparin Sodium 40 MG/0.4 ML SYRINGE SC SCH (20:43)
--- NOTE | 2019-02-14 21:24 | CON ---
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 He had also developed GI bleeding with cardiac arrest during endoscopy and subsequent surgical intervention by Dr. Gill on 02/03, in which he found an active bleeding from a duodenal ulcer. He received I believe 17 units of packed red cells during that intervention. He required packing of his abdomen at that initial operation and then repeat operation with closure of the abdomen and placement of a wound VAC. Ultimately, he has recovered from those injuries. He did undergo tracheostomy by Dr. Escobar during the intervention due to the obstruction of airway and ultimately was found to have a lesion of the right epiglottis and arytenoid areas. In any event, blood pressure readings were being obtained today and the nurse reported that the left arm and hand were dusky. He underwent ultrasound demonstrating monophasic signals throughout the left arm. On questioning, the patient has no symptoms of ischemia in the left arm. On examination, he does have a tracheostomy through which he is talking around. He has a large amount of upper airway secretions and noises on auscultation. He has no masses to palpation in the supraclavicular area on the left. He has an easily palpable left radial pulse. However, blood pressure in the left arm is 85 compared to 115 in the right arm. Fingers are pink and warm. EXTREMITIES: He has a palpable pedal pulse in the left foot, none in the right. IMAGING: Review of his chest CT scan on admission demonstrates lack of any significant atherosclerosis of the arch or takeoff of the great vessels. I am unable to follow the left subclavian artery due to contrast in the left subclavian vein. At this time, the patient appears to have an occlusion of his left subclavian artery and it is not clear to me the etiology, but the fact that he has no symptoms to suggest it is a chronic process with collateralization. No indication for intervention at this time and would just recommend obtaining blood pressures in the right arm because the left arm will give false low readings. Job ID: [id number]
--- NOTE | 2019-02-15 08:17 | PDOC.PN ---
- Subjective Encounter Start Date: 02/15/19 Encounter Start Time: 09:50 Subjective: Patient without complaint. No arm pain/numbness. Still with some black -: bowel movements expected after the GI bleed. - Objective Resuscitation Status - Order Detail: 02/02/19 18:26 Resuscitation Status Routine Resuscitation Status: FULL: Full Resuscitation MAR Reviewed: Yes Vital Signs & Weight: Vital Signs (12 hours) Temp Pulse Resp BP Pulse Ox 02/15/19 06:30 67 18 99 02/15/19 05:05 98.6 F 71 16 119/73 99 02/15/19 02:22 20 02/14/19 23:55 98.7 F 67 16 131/65 97 02/14/19 22:00 67 20 97 Weight Admit Weight 225 lb 4.8 oz Weight 231 lb 8 oz Most Recent Monitor Data Heart Rate from ECG 58 NIBP 158/84 NIBP BP-Mean 108 Respiration from ECG 23 SpO2 94 I&O: 02/14/19 02/15/19 02/16/19 06:59 06:59 06:59 Intake Total 1500 1110 1200 Output Total 2135 510 600 Balance -635 600 600 Result Diagrams: 02/14/19 05:30 02/14/19 05:30 Additional Labs: Accuchecks 02/15/19 02/15/19 02/14/19 05:51 00:06 18:17 POC Glucose 145 H 160 H 129 H 02/14/19 02/09/19 12:05 18:04 POC Glucose 117 H 49 L* Phys Exam - Physical Examination Constitutional: NAD HEENT: moist MMs Respiratory: no wheezing, no rales, no rhonchi lots of upper resp noises from the trach Cardiovascular: RRR Gastrointestinal: soft, positive bowel sounds Musculoskeletal: no edema weak but palpable pulse LUE, good cap refill Neurological: non-focal, moves all 4 limbs Psychiatric: normal affect, A&O x 3 Dx/Plan (1) Bleeding duodenal ulcer Code(s): K26.4 - CHRONIC OR UNSPECIFIED DUODENAL ULCER WITH HEMORRHAGE Status : Acute Comment: s/p oversewing ulcer, MARIBETH drain out, ready for rehab (2) Acute blood loss anemia Code(s): D62 - ACUTE POSTHEMORRHAGIC ANEMIA Status: Acute Comment: recieved MTP (total of 15u prbc, 3 liq plasma, 6 ffp, 2 platelet and 1 cryo were given in total this admission), now stable after oversewing of ulcer (3) Acute respiratory failure Code(s): J96.00 - ACUTE RESPIRATORY FAILURE, UNSP W HYPOXIA OR HYPERCAPNIA Status: Acute Qualifiers: Respiratory failure complication: hypoxia and hypercapnia Qualified Code(s) : J96.01 - Acute respiratory failure with hypoxia; J96.02 - Acute respiratory failure with hypercapnia Comment: resolving, has trach (4) Squamous cell carcinoma of larynx Code(s): C32.9 - MALIGNANT NEOPLASM OF LARYNX, UNSPECIFIED Status: Acute Comment: needs oncology (Armani) and radonc (Memo) follow up as outpatient, may be strong enough to start chemo and radiation in a few weeks (5) Status post tracheostomy Code(s): Z93.0 - TRACHEOSTOMY STATUS Status: Acute Comment: sec to supraglottic mass for airway (6) PNA (pneumonia) Code(s): J18.9 - PNEUMONIA, UNSPECIFIED ORGANISM Status: Resolved Qualifiers: Pneumonia type: aspiration pneumonia Laterality: right Lung location: middle lobe of lung (7) COPD (chronic obstructive pulmonary disease) Status: Chronic Qualifiers: COPD type: chronic bronchitis (8) Alcohol abuse Code(s): F10.10 - ALCOHOL ABUSE, UNCOMPLICATED Status: Chronic (9) Tobacco abuse Code(s): Z72.0 - TOBACCO USE Status: Chronic Comment: cigars (10) Hypokalemia Code(s): E87.6 - HYPOKALEMIA Status: Resolved (11) Left subclavian artery occlusion Code(s): I70.8 - ATHEROSCLEROSIS OF OTHER ARTERIES Status: Chronic Comment: likely chronic with collaterals per Dr. Haynes, no intervention warranted at this time, blood pressure on RUE to get accurate readings - Plan cont current plan of care, PT/OT to rehab today * . - Discharge Day Encounter end time: 10:15
[2019-02-15] MEDS: Pantoprazole 40 MG VIAL IVP SCH (09:03)
--- NOTE | 2019-02-15 09:51 | PRG ---
DATE OF SERVICE: 02/15/2019 SUBJECTIVE: He is in good spirits. He wants to go home. He is yet to start radiation therapy. OBJECTIVE: VITAL SIGNS: Temperature 98.6, pulse 67, respirations 18, O2 saturation 99% on 5 L. HEENT: Unremarkable. NECK: No adenopathy. He has trach in position, has some secretions present. CARDIAC: S1 and S2, regular. LUNGS: Clear. ABDOMEN: Soft. LABORATORY DATA: No new labs were done today. Blood glucoses look appropriate. ASSESSMENT: 1. Head and neck cancer. 2. Status post tracheostomy placement. 3. Status post laparotomy for duodenal ulcer repair. PLAN: start radiation therapy. He is on a scopolamine patch, which should ultimately help with secretions. Job ID: [id number]
[2019-02-15 12:01] VITALS: BP 118/69; TEMP 98.7
--- NOTE | 2019-02-16 03:58 | DIS ---
DATE OF ADMISSION: 02/02/2019 DATE OF DISCHARGE: 02/15/2019 PRIMARY CARE PHYSICIAN: Symone Larios. REASON FOR ADMISSION: Pneumonia. DIAGNOSES AT DISCHARGE: 1. Pneumonia, resolved. 2. Bleeding duodenal ulcer, status post over-sewing. 3. Acute blood loss anemia, stabilized. 4. Acute respiratory failure with hypoxia, resolved with tracheostomy. 5. Squamous cell carcinoma of the larynx. 6. Chronic obstructive pulmonary disease. 7. Alcohol abuse. 8. Tobacco abuse. 9. Hypokalemia. 10. Chronic left subclavian artery occlusion. PROCEDURES: 1. CT angiogram of the chest showing no evidence for pulmonary embolism. Opacification of the bronchus intermedius and segmental bronchi of the proximal right middle lobe and basilar right lower lobe, likely reflecting aspiration and a subpleural consolidation involving the superior segment of the left lower lobe which may reflect pneumonia. 2. EGD with injection therapy for control of bleeding and hemoclip placement showing active gastrointestinal hemorrhage with fresh clot with recurrent hemorrhage during the upper endoscopy, primarily in the fundus; unable to identify the source of the bleeding due to large clots. 3. 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 4. Tracheostomy placement. 5. Modified barium swallow showing laryngeal penetration and aspiration. 6. CT of the abdomen and pelvis with contrast showing no evidence of contrast leak from the patient's stomach. There was diverticulosis and a stable left adrenal mass. 7. Arterial ultrasound of the left upper extremity showing monophasic waveforms throughout all the major arteries of left upper extremities suggestive of hemodynamically significant stenosis/obstruction. CONSULTATIONS: 1. Pulmonology, Dr. Bailey. 2. Gastroenterology, Dr. Boo. 3. General Surgery, Dr. Gill. 4. ENT, Dr. Escobar. 5. Heme/Oncology, Maribel Glass for Dr. Lomeli. 6. Radiation Oncology, Dr. David Hampton. 7. Vascular Surgery, Dr. Haynes. SUMMARY OF HOSPITAL COURSE: This is a 68-year-old man with history of tobacco and alcohol abuse, who presented to the emergency room with shortness of breath, difficulty swallowing. The patient had a CT which showed likely pneumonia as well as likely aspiration. Dr. Bailey was consulted for Pulmonology. He was concerned with a history of tobacco and alcohol consumption and progressive odynophagia and dysphagia with voice loss that the patient might have a head and neck cancer, so he consulted his ENT. The ENT did scope him and put in a tracheostomy and noted what eventually turned to be a squamous cell carcinoma of the larynx. The patient had acute active upper GI hemorrhage after the tracheostomy placement, so Dr. John came in and did an EGD with the above results, unable to control hemorrhage, so Dr. Gill came in and performed a laparotomy with over-sewing of lesions and bleeding ulcer. The patient was in need of a lot of transfusions and was eventually stabilized. He had bit of a prolonged course and was eventually able to be taken off the ventilator, was doing well with oxygen via his trach collar. He had persistent dysphagia with aspiration, so he is on tube feeding only at this point. Heme/Oncology and Radiation Oncology were consulted. They recommended starting chemotherapy and radiation as soon as he gets stronger from his infection and recovering from his GI hemorrhage perhaps in 2 to 3 weeks. The patient was noted to have, the day before discharge today, very pale left upper extremity when the blood pressure was taken on and blood pressures were lower in that extremity than the right upper extremity and had a poor pulse and arterial ultrasound was done with the above results. Dr. Haynes was consulted. He determined the patient likely had a left subclavian obstruction, but that it was chronic with collaterals and did not need any urgent interventions at this point, so the patient was cleared for discharge. He did finish his antibiotic course during the hospitalization and his pneumonia resolved. He is being discharged to inpatient rehabilitation at [facility]. DISCHARGE MANAGEMENT: 1. Location: Discharged to [facility]. 2. Activity: As tolerated. 3. Diet: Tube feeding diet. 4. Therapy: Occupational, physical, and speech therapy. Continue oxygen, also a PEG tube and trach care. DISCHARGE MEDICATIONS: 1. Protonix 40 mg per tube daily. 2. Hydrocodone 7.5 mg/325 mg per tube every 6 hours as needed for pain. 3. DuoNeb as needed. 4. Scopolamine 1.5 mg patch q.3 days. FOLLOWUP: The patient is to follow up with Dr. Lomeli and with Dr. Hampton in 2 to 3 weeks. Arranging the details of this discharge took 35 minutes. Job ID: [id number]
== END 2019-02-15 15:15 | DRG 3 ==
LOC: ERS 11:46 → T4-A 16:47 → CCU 02-03 15:51 → SURG B 02-08 20:23
PROVIDERS: ADMIT Internal Medicine; ATTEND Internal Medicine
PROC: 0B110F4 Bypass Trachea to Cutaneous with Tracheostomy Device, Open Approach (ICD-10-PCS; principal; 2019-02-03)
PROC: 0DC60ZZ Extirpation of Matter from Stomach, Open Approach (ICD-10-PCS; 2019-02-03)
PROC: 0W3P0ZZ Control Bleeding in Gastrointestinal Tract, Open Approach (ICD-10-PCS; 2019-02-03)
PROC: 0DQ70ZZ Repair Stomach, Pylorus, Open Approach (ICD-10-PCS; 2019-02-03)
PROC: 5A1945Z Respiratory Ventilation, 24-96 Consecutive Hours (ICD-10-PCS; 2019-02-03)
PROC: 5A12012 Performance of Cardiac Output, Single, Manual (ICD-10-PCS; 2019-02-03)
PROC: 3E0G8GC Introduction of Other Therapeutic Substance into Upper GI, Via Natural or Artificial Opening Endoscopic (ICD-10-PCS; 2019-02-03)
PROC: 0W3P8ZZ Control Bleeding in Gastrointestinal Tract, Via Natural or Artificial Opening Endoscopic (ICD-10-PCS; 2019-02-03)
PROC: 3E1M38Z Irrigation of Peritoneal Cavity using Irrigating Substance, Percutaneous Approach (ICD-10-PCS; 2019-02-03)
PROC: 3E0336Z Introduction of Nutritional Substance into Peripheral Vein, Percutaneous Approach (ICD-10-PCS; 2019-02-03)
PROC: 0DH63UZ Insertion of Feeding Device into Stomach, Percutaneous Approach (ICD-10-PCS; 2019-02-05)
PROC: 0W9F30Z Drainage of Abdominal Wall with Drainage Device, Percutaneous Approach (ICD-10-PCS; 2019-02-05)
PROC: 30233K1 Transfusion of Nonautologous Frozen Plasma into Peripheral Vein, Percutaneous Approach (ICD-10-PCS; 2019-02-15)
PROC: 30233N1 Transfusion of Nonautologous Red Blood Cells into Peripheral Vein, Percutaneous Approach (ICD-10-PCS; 2019-02-15)
PROC: 30233R1 Transfusion of Nonautologous Platelets into Peripheral Vein, Percutaneous Approach (ICD-10-PCS; 2019-02-15)
PROC: 30233M1 Transfusion of Nonautologous Plasma Cryoprecipitate into Peripheral Vein, Percutaneous Approach (ICD-10-PCS; 2019-02-15)
DX: K26.0 Acute duodenal ulcer with hemorrhage (principal); J96.01 Acute respiratory failure with hypoxia; J96.02 Acute respiratory failure with hypercapnia; J69.0 Pneumonitis due to inhalation of food and vomit; R57.8 Other shock; I46.9 Cardiac arrest, cause unspecified; D62 Acute posthemorrhagic anemia; J44.0 Chronic obstructive pulmonary disease with (acute) lower respiratory infection; N17.9 Acute kidney failure, unspecified; E87.0 Hyperosmolality and hypernatremia; C32.1 Malignant neoplasm of supraglottis; F10.10 Alcohol abuse, uncomplicated; F17.210 Nicotine dependence, cigarettes, uncomplicated; E87.6 Hypokalemia; I70.8 Atherosclerosis of other arteries; E86.0 Dehydration; I95.89 Other hypotension; E86.1 Hypovolemia; E16.2 Hypoglycemia, unspecified; J38.7 Other diseases of larynx; I25.10 Atherosclerotic heart disease of native coronary artery without angina pectoris; I73.9 Peripheral vascular disease, unspecified; L57.0 Actinic keratosis; K25.4 Chronic or unspecified gastric ulcer with hemorrhage; K31.82 Dieulafoy lesion (hemorrhagic) of stomach and duodenum; C76.0 Malignant neoplasm of head, face and neck; E66.9 Obesity, unspecified; E87.8 Other disorders of electrolyte and fluid balance, not elsewhere classified; Z68.30 Body mass index [BMI] 30.0-30.9, adult
CPT/HCPCS: 36415; 36416; 36430; 71045; 71275; 74018; 74177; 74230; 80048; 80053; 80061; 80076; 82805; 83605; 83735; 83880; 84100; 84484; 85025; 85610; 85730; 86850; 86900; 86901; 88305; 88341; 88342; 88360; 93005; 93923; 94002; 94003; 94640; 96365; 96367; 99203; C9113; G0463; J0131; J0171; J0456; J0696; J1100; J1642; J1650; J1815; J2001; J2060; J2250; J2270; J2370; J2405; J2543; J2704; J2920; J3010; J3411; J3475; J3480; J3490; J7050; J7620; P9012; P9016; P9035; P9045; P9048; P9059; Q9966